=== PATIENT | female | born 1940 | race Caucasian/White ===

== ENCOUNTER → 2023-08-08 09:44 | Outpatient (REF) | payer MEDICARE, SELFPAY ==
[2023-08-08 10:24] LABS: Hematocrit 34.1 % (37.0-47.0); Hemoglobin 11.4 g/dL (12.0-16.0)
[2023-08-08 10:51] LABS: Albumin 3.7 g/dl (3.5-5.0); Blood Urea Nitrogen 75 mg/dl (7-17); Calcium 8.9 mg/dl (8.4-10.2); Carbon Dioxide 21 mmol/L (22-30); Chloride 98 mmol/L (98-107); Glucose 173 mg/dl (70-99); Potassium 4.1 mmol/L (3.5-5.1); Sodium 135 mmol/L (135-145); eGFR 12.09
[2023-08-08 10:58] LABS: ALT (SGPT) < 10 U/L (0-35); AST (SGOT) 31 U/L (14-36); Albumin 3.9 g/dl (3.5-5.0); Alkaline Phosphatase 59 U/L (38-126); Blood Urea Nitrogen 67 mg/dl (7-17); Calcium 8.6 mg/dl (8.4-10.2); Carbon Dioxide 22 mmol/L (22-30); Chloride 101 mmol/L (98-107); Glucose 166 mg/dl (70-99); HDL Cholesterol 51 mg/dl; LDL Cholesterol, Calculated 50 mg/dl; Potassium 4.2 mmol/L (3.5-5.1); Sodium 134 mmol/L (135-145); Total Bilirubin 0.5 mg/dl (0.2-1.3); Total Cholesterol 131 mg/dl (50-199); Total Protein 6.2 g/dl (6.3-8.2); Triglyceride 152 mg/dl (10-149); Very Low Density Lipoprotein 30 mg/dl (0-30)
[2023-08-08 11:21] LABS: TSH 4.96 uIU/ml (0.47-4.68)
[2023-08-08 12:29] LABS: Glycohemoglobin (HgbA1c) 7.3 % (4.0-5.6)
[2023-08-09 11:07] LABS: Intact PTH 253.8 pg/ml (13.6-85.8)
== END ==
LOC: REG 09:44
PROVIDERS: ATTENDING PHYSICIAN Specialist; FAMILY PHYSICIAN Internal Medicine Geriatric Medicine; REFERRING PHYSICIAN Internal Medicine Endocrinology, Diabetes & Metabolism
DX: E11.22 Type 2 diabetes mellitus with diabetic chronic kidney disease (principal); N18.4 Chronic kidney disease, stage 4 (severe); Z79.4 Long term (current) use of insulin; E78.5 Hyperlipidemia, unspecified; N28.9 Disorder of kidney and ureter, unspecified; Q61.3 Polycystic kidney, unspecified
CPT/HCPCS: 36415; 80053; 80061; 80069; 83036; 83970; 84443; 85014; 85018

== ENCOUNTER → 2023-08-20 14:02 | Outpatient (REF) | payer OTHER, SELFPAY | LOC: DHCBS HW 14:02 | PROVIDERS: ATTENDING PHYSICIAN Internal Medicine Cardiovascular Disease; FAMILY PHYSICIAN Internal Medicine Geriatric Medicine | DX: I35.1 Nonrheumatic aortic (valve) insufficiency (principal); I35.0 Nonrheumatic aortic (valve) stenosis | CPT/HCPCS: 93306 ==

== ENCOUNTER → 2023-08-29 10:01 | Outpatient (REF) | payer OTHER, SELFPAY ==
[2023-08-29 11:25] LABS: Blood Urea Nitrogen 65 mg/dl (7-17); Calcium 8.9 mg/dl (8.4-10.2); Carbon Dioxide 22 mmol/L (22-30); Chloride 102 mmol/L (98-107); Glucose 232 mg/dl (70-99); Phosphorus 5.2 mg/dl (2.5-4.5); Potassium 4.4 mmol/L (3.5-5.1); Sodium 133 mmol/L (135-145); eGFR 12.51
[2023-08-29 11:28] LABS: NT-proBNP 18700 pg/ml
== END ==
LOC: REG 10:01
PROVIDERS: ATTENDING PHYSICIAN Specialist; FAMILY PHYSICIAN Internal Medicine Geriatric Medicine
DX: Q61.3 Polycystic kidney, unspecified (principal); N18.4 Chronic kidney disease, stage 4 (severe)
CPT/HCPCS: 36415; 80069; 83880

== ENCOUNTER → 2023-09-25 12:18 | Outpatient (REF) | payer OTHER, SELFPAY ==
[2023-09-25 13:01] LABS: Hematocrit 34.9 % (37.0-47.0); Hemoglobin 11.6 g/dL (12.0-16.0)
[2023-09-25 13:45] LABS: ALT (SGPT) < 10 U/L (0-35); AST (SGOT) 29 U/L (14-36); Albumin 4.1 g/dl (3.5-5.0); Alkaline Phosphatase 47 U/L (38-126); Blood Urea Nitrogen 51 mg/dl (7-17); Calcium 8.7 mg/dl (8.4-10.2); Carbon Dioxide 23 mmol/L (22-30); Chloride 102 mmol/L (98-107); Glucose 144 mg/dl (70-99); Phosphorus 4.5 mg/dl (2.5-4.5); Potassium 4.7 mmol/L (3.5-5.1); Sodium 134 mmol/L (135-145); Total Bilirubin 0.6 mg/dl (0.2-1.3); Total Protein 6.5 g/dl (6.3-8.2); eGFR 12.95
[2023-09-27 09:50] LABS: Intact PTH 199.4 pg/ml (13.6-85.8)
== END ==
LOC: REG 12:18
PROVIDERS: ATTENDING PHYSICIAN Specialist; FAMILY PHYSICIAN Internal Medicine Geriatric Medicine
DX: N18.5 Chronic kidney disease, stage 5 (principal)
CPT/HCPCS: 36415; 80053; 83970; 84100; 85014; 85018

== ENCOUNTER → 2023-10-10 13:00 | Outpatient (REF) | payer OTHER, SELFPAY | LOC: RAD 13:00 | PROVIDERS: ATTENDING PHYSICIAN Surgery Vascular Surgery | DX: Z01.818 Encounter for other preprocedural examination (principal) | CPT/HCPCS: 93985 ==

== ENCOUNTER 2023-10-23 09:03 | Day surgery (SDC) | payer OTHER, SELFPAY ==
[2023-10-23] VITALS (15 sets, daily range): BP systolic 107–170; BP diastolic 48–77; BMI 18.4
[2023-10-23] MEDS: PERIDEX 0.12% ORAL RINSE 15 ML PO (09:46)
[2023-10-23] MEDS: BACTROBAN NASAL 1 GRAM NASAL (09:48)
[2023-10-23 10:08] LABS: Glucose - Point of Care 177 mg/dl (70-99)
[2023-10-23] MEDS: VANCOCIN 200 IV (10:26)
[2023-10-23] MEDS: NSS 500 IV (10:27)
[2023-10-23 10:28] LABS: Hematocrit 34.5 % (37.0-47.0); Hemoglobin 11.7 g/dL (12.0-16.0); Mean Corp Hgb Conc. 33.9 g/dL (33.0-37.0); Mean Corpuscular Volume 94.3 fL (81.0-99.0); Platelet Count 217 10^3/uL (130-400); Red Blood Cell Count 3.66 10^6/uL (4.20-5.40); Red Cell Dist. Width 13.1 % (11.5-14.5); White Blood Cell Count 7.1 10^3/uL (4.8-10.8)
[2023-10-23 10:39] LABS: INR 1.15; PT 14.7 Sec (11.4-14.6)
[2023-10-23 10:40] LABS: APTT 27.3 Sec (23.4-35.0)
--- NOTE | 2023-10-23 10:40 | W.SUR.PREOP ---
Pre-Operative Surgical Note
-
I have examined this patient prior to the performance of the scheduled procedure.
The patient's condition is unchanged from the time of the current History and
Physical and the patient is able to undergo the scheduled procedure.
[2023-10-23 10:42] LABS: Blood Urea Nitrogen 71 mg/dl (7-17); Calcium 8.9 mg/dl (8.4-10.2); Carbon Dioxide 22 mmol/L (22-30); Chloride 110 mmol/L (98-107); Estimated Creatinine Clearance 9 ml/min; Glucose 165 mg/dl (70-99); Potassium 4.5 mmol/L (3.5-5.1); Sodium 140 mmol/L (135-145); eGFR 12.51
--- NOTE | 2023-10-23 12:01 | W.SUR.POST ---
Surgical Immediate Post Op
Note
Pre Op Diagnosis: Renal failure
Post Op Diagnosis: same
Procedure Performed: LUE brachiobasilic AV fistula creation
Primary Surgeon: Mckay
Assist: Mikel MARIE
Anesthesia: LMA
Estimated Blood Loss: 10cc
Fluids: see anesthesia flow sheet
Drains/Shunts: none
Specimens/Cultures: none
Doppler/Duplex/Angio (Y/N): Y
Complications: none
Operative Findings: +thrill
[2023-10-23 13:29] LABS: Glucose - Point of Care 172 mg/dl (70-99)
[2023-10-23] MEDS: DILAUDID 0.25 MG IV (13:37)
[2023-10-23] MEDS: TYLENOL 650 MG PO (14:43)
--- NOTE | 2023-10-23 15:22 | PTCARENOTE ---
Patient denied oxycodone for moderate pain. She stated that she did not want to feel loopy for her car ride home. Instead she was given 650mg of Tylenol for pain. HALL CLERK Daly Morin made aware.
--- NOTE | 2023-10-23 16:51 | OR.RPT ---
Operative Report
Operative Report
PROCEDURE DATE: 10/23/2023
Preoperative diagnosis: End-stage renal disease approaching hemodialysis.
Postoperative diagnosis: Same
Procedure: Left upper extremity brachiobasilic arteriovenous fistula creation with single stage basilic vein transposition.
Surgeon: Mckay
Naval Architect Specialist: FAVIO Morin required for all aspects of procedure including assistance with traction/countertraction, assistance with following suture line, assistance with closure.
Complications: None
Anesthesia: General
Indications for procedure:
Worsening chronic kidney disease with likely imminent dialysis. Therefore referred for fistula creation. Risk/benefits/alternatives were also discussed. Patient understood all wish to proceed.
Description of procedure:
Patient was identified brought to the operating room placed on the table in supine position. After the adequate administration of anesthesia and perioperative antibiotics she was prepped and draped in the standard surgical fashion. A standard
preoperative timeout was undertaken and everybody was in agreement the plan. A longitudinal incision was made in the medial distal upper arm that was carried through the skin subcutaneous tissue with electrocautery. The basilic vein was identified
and carefully dissected away from surrounding structures and great care to avoid any injury to structures. She had a thin habitus and initially I identified the deep vein, but it was clearly a deep vein. Therefore I then used an ultrasound probe
to confirm where the basilic vein was. I was then able to carefully dissected away from surrounding structures. It appeared to be a very suitable vein. I therefore then continued my incisions extending proximally up towards the axilla and
distally just to the level of the antecubital fossa. The basilic vein was carefully dissected away from surrounding structures take great care to avoid any injury to structures, namely the median antebrachial cutaneous nerve which was carefully
preserved from harm's way. Any branches of the basilic vein were ligated between silk ties and then divided. As such I was able to mobilize the entirety of the basilic vein out of its bed. Once I fully mobilized sufficient length of vein I then
ligated the vein distally with a silk tie and a clip and then transected it. I then untethered it from the nerve. I distended under heparinized saline. It distended very well. I marked the anterior surface under distention to avoid any kinking
or twisting when I tunneled it.
Next I deepened my dissection in the distal aspect of my incision through the fascial layer, thereby identifying the brachial artery and carefully dissected away from surrounding structures and great care to avoid any injury to structures. I passed
Vesseloops around it proximally and distally. Next I made a small counterincision overlying the biceps and used an aortic clamp to tunnel the mobilized basilic vein to the arterial exposure site (tunneled in somewhat of a a rainbow fashion
overlying the biceps). The tunneling was performed with the vein under distention to avoid any kinking or twisting.
Next I gave the patient 3000 units of intravenous heparin. I then tightened my Vesseloops (double looped) proximally and distally on the brachial artery. Next I made an arteriotomy with 11 blade and extended using a Mckeon scissor. I then
spatulated the vein and sewed an end-to-side anastomosis using a running 6-0 Prolene suture. I then completed and tied down my suture line. Next I released my inflow Vesseloops on the artery and the bulldog clamp on the vein. There was an
excellent thrill in the fistula. I released my outflow vessel loop. There was a single small suture line bleeder that was repaired with a single 6-0 Prolene [id number] type suture. Hemostasis was now achieved along the suture line. I
confirmed good distal flow with an easily palpable radial pulse at the wrist. At this point I was very satisfied. I therefore irrigated all my incision sites. Hemostasis was fully achieved and confirmed. We then closed the vein mobilization bed
using interrupted 2-0 Vicryl running suture. Deep dermal interrupted 3-0 Vicryl suture was then used. Finally 4-0 Monocryl subcuticular stitch was run. The small counterincision was closed with 4-0 Monocryl subcuticular stitch as well. Dermabond
was applied to the incision sites. Patient tolerated the procedure well.
== END 2023-10-23 15:30 | disposition home or self-care (01) ==
LOC: CATH 09:03
PROVIDERS: ATTENDING PHYSICIAN Surgery Vascular Surgery; FAMILY PHYSICIAN Internal Medicine Geriatric Medicine; OTHER PHYSICIAN Internal Medicine Cardiovascular Disease
DX: E11.22 Type 2 diabetes mellitus with diabetic chronic kidney disease (principal); N18.6 End stage renal disease; Z79.4 Long term (current) use of insulin; Z85.01 Personal history of malignant neoplasm of esophagus; R55 Syncope and collapse
CPT/HCPCS: 36819; 36821; 80048; 82962; 85027; 85610; 85730; 86850; 86900; 86901

== ENCOUNTER 2023-12-08 12:41 | Inpatient (IN) | payer OTHER, SELFPAY ==
[2023-12-06] VITALS (8 sets, daily range): BP systolic 140–167; BP diastolic 64–126; BMI 18.9
[2023-12-06 16:42] LABS: % Basophils 0.5 % (0-2); % Immature Granulocytes 0.3 % (0-0.5); % Monocytes 7.6 % (1.7-9.3); % Neutrophils 63.6 % (42.2-75.2); Absolute Eosinophils 0.4 10^3/uL (0-0.7); Absolute Lymphocytes 1.4 10^3/uL (1.2-3.4); Absolute Monocytes 0.5 10^3/uL (0.1-0.6); Hematocrit 32.2 % (37.0-47.0); Hemoglobin 10.8 g/dL (12.0-16.0); Mean Corp Hgb Conc. 33.5 g/dL (33.0-37.0); Mean Corpuscular Hgb 31.5 pg (27.0-31.0); Mean Corpuscular Volume 93.9 fL (81.0-99.0); Mean Platelet Volume 9.8 fL (7.4-10.4); Nucleated Red Blood Cells % 0 %; Platelet Count 240 10^3/uL (130-400); Red Blood Cell Count 3.43 10^6/uL (4.20-5.40); Red Cell Dist. Width 13.1 % (11.5-14.5); White Blood Cell Count 6.3 10^3/uL (4.8-10.8)
[2023-12-06 16:52] LABS: ALT (SGPT) < 10 U/L (0-35); AST (SGOT) 39 U/L (14-36); Albumin 3.7 g/dl (3.5-5.0); Alkaline Phosphatase 33 U/L (38-126); Blood Urea Nitrogen 60 mg/dl (7-17); Calcium 9.3 mg/dl (8.4-10.2); Carbon Dioxide 25 mmol/L (22-30); Chloride 107 mmol/L (98-107); Glucose 110 mg/dl (70-99); Potassium 4.7 mmol/L (3.5-5.1); Sodium 139 mmol/L (135-145); Total Bilirubin 0.5 mg/dl (0.2-1.3); eGFR 12.95
[2023-12-06 17:04] LABS: Troponin I 0.028 ng/ml
--- NOTE | 2023-12-06 17:49 | ED.GENMED ---
History of Present Illness
<Gloria Estrada PA-C - Last Filed: 12/06/23 20:53>
General
Chief Complaint: Fainting Sensation
Source: patient
Exam Limitations: none
Time Seen by Provider: 12/06/23 16:46
Nursing documentation reviewed up to this point in time: agreed with
Travel History
Have you had any contact with someone who has COVID-19?: No
Do you have any symptoms of coronavirus? Fever > 100 degrees, chills, cough, shortness of breath, sore throat, loss of taste or smell, muscle aches, or headache?: No
History of Present Illness
History of Present Illness:
Patient is an 83-year-old female with past medical history of hyperlipidemia, CAD with STEMI resulting in 2 cardiac stents being placed in July 2023, previous CVA, GERD, who presents to the emergency department via EMS for evaluation following an
unresponsive episode. Patient reports that she lives in the independent living portion of [facility]. Patient reports that her is currently in the us[facility] portion of [facility]. She reports that she was sitting and visiting
with him along with some other family members when she reportedly became unresponsive. Patient denies any preceding symptoms such as lightheadedness, dizziness, chest pain, palpitations, shortness of breath. Patient denies that she has been sick
for the past few days. Patient reports that the next thing she remembered, she woke up and was being loaded into an ambulance. Patient reports that she currently feels cold, tired, and hungry. She reports that she felt a little nauseated earlier
but that has since resolved. Patient denies chest pain, shortness of breath, abdominal pain, vomiting. Patient believes that she may have had similar episodes in the past but none recently. She does not know if they ever found a reason for why it
occurred.
Past History
<Gloria Estrada PA-C - Last Filed: 12/06/23 20:53>
Past History
ED Past Medical History: CAD and Other (Syncope)
ED Past Surgical History: Other (esophagectomy)
Social History
Tobacco: Non-smoker
Personal:
Living: with family
Employment: Retired
Review of Systems
<Gloria Estrada PA-C - Last Filed: 12/06/23 20:53>
Review of Systems
All Other Systems: ROS reviewed and negative except as documented in HPI and ROS
Constitutional: Reports no symptoms
EENT: Reports no symptoms
Respiratory: Reports no symptoms
Cardiac: Reports no symptoms
ABD/GI: Reports nausea (resolved); Denies abdominal pain, vomiting, diarrhea or constipated
: Reports no symptoms
Musculoskeletal: Reports no symptoms
Skin: Reports no symptoms
Neurological: Reports no symptoms
Endocrine: Reports no symptoms
Hematologic/Lymphatic: Reports no symptoms
Psychiatric: Reports no symptoms
Phy Exam
<Gloria Estrada PA-C - Last Filed: 12/06/23 20:53>
General Physical Exam
General Presentation: well appearing and no apparent distress
General Skin: warm and dry
General Habitus: normal
General Mental: alert
General Hydration: appears well hydrated
ENT Exam
ENT Exam: EOMI, pharynx normal, neck supple and normocephalic
Eye Exam
Eye Exam: PERRL, EOMI, cornea clear and conjunctiva normal
Cardiovascular Exam
Cardiovascular Exam: regular rate/rhythm, no edema, no murmur and normal peripheral pulses
Pulmonary Exam
Pulmonary Exam: lungs clear, no respiratory distress, no rales, no crackles, no rhonchi, no stridor, no wheezing and no cough
Gastrointestinal Exam
Gastrointestinal Exam: normal bowel sounds, non tender, soft, no organomegaly, no pulsatile mass and non distended
Neurological Exam
Neurological Exam: alert, oriented x3, no motor deficits and speech normal
Musculoskeletal Exam
Musculoskeletal Exam: full ROM and no edema
Skin Exam
Skin Exam: normal color, warm/dry, no rash and no petechia
Psychiatric Exam
Psychiatric Exam: normal mood/affect
Course
<Gloria Estrada PA-C - Last Filed: 12/06/23 20:53>
Orders/Labs/Results
Orders:
Orders
12/06/23 16:20
EKG [Electrocardiogram (*1)] Urgent
Reason for Study: Chest Pain
EKG- Treatment ONCE
12/06/23 16:29
Comprehensive Metabolic Panel Urgent
12/06/23 16:30
Complete Blood Count/With Diff Urgent
Troponin I Urgent
12/06/23 17:59
Urinalysis Reflex To Culture Urgent
Date Specimen was Collected: 12/06/23
Time Specimen was Collected: 17:39
Urine Microscopic Reflex Cult Urgent
Urine Culture Urgent
GREGG Source: U
Specimen Description:
Date Specimen was Collected: 12/06/23
Time Specimen was Collected: 17:39
12/06/23 20:59
Admit/Transfer Patient As Directed
Co-Sign Provider:
Level of Care: Observation services
Assign to:: Telemetry
Physician / Group: Fish
Diagnosis: Syncope
Reason for Telemetry: Syncope
Date to Stop Telemetry: 12/08/23
Time to Stop Telemetry: 11:00
12/06/23 21:03
Code Status As Directed
Resuscitation Status: Do not resuscitate
Reached after discussion with pt or family/Healthcare POA: Yes
12/06/23 21:04
DNR Bracelet Application ONCE
12/06/23 21:48
0.9% Sodium Chloride 1000 ml [Nss] 1,000 ml IV 80 mls/hr
Acetaminophen [Tylenol] 650 mg PO Q4HPRN PRN
Dextrose 50%-Water [Dextrose 50% Syringe] 12.5 grams IV [id number] PRN
Glucagon [GlucaGen] 1 mg IM PRN PRN
12/06/23 21:48
Activity As Directed
Activity Level: Ambulate
With Assistance
Bedside Glucose Monitoring As Directed
Frequency: AC&HS
Additional Instructions:: Change to q6h if pt on TPN, tube feeding or not eating
Bladder Scan As Directed
Follow Bladder Retention/Intermittent Cath Algorithm?: Yes
PRN if no void in __ hours: 6
Frequency: Per Retention Algorithm
If Bladder Scan Result >: 400
then:: Straight cath
EKG with chest pain [ECG as needed] As Directed
ECG as needed for:: Chest Pain
I/O [Intake/ Output] As Directed
Frequency: Per unit guidelines
Neurological Checks As Directed
Frequency: q4h
Orthostatic Vital Signs As Directed
Orthostatic VS Frequency: BID
Pneumatic Compression Sleeves As Directed
Type: Knee high
Straight Cath As Directed
Frequency: Per Retention Algorithm
Additional Instructions: straight cath as needed per acute urinary retention algorithm for 24 hrs
Additional Instructions: for bladder scan greater than 400 mL
Vital Signs As Directed
Frequency: Per unit guidelines
Weight As Directed
Frequency: Daily
Oxygen Therapy [O2 Therapy] [RESP] Routine
Titrate/Wean O2 to maintain O2 sat greater than (%): 94
Ot Eval And Treat Routine
PT Consult [Pt Eval And Treat] Routine
Activity Level: Ambulate
With Assistance
DX Deep Vein Thrombosis Video Routine
12/06/23 22:00
Carbidopa/Levodopa [Sinemet 25-100] 1 tablet PO HS
12/06/23 22:56
Troponin I Q6H
12/07/23 03:48
Troponin I Q6H
12/07/23 06:00
EKG [Electrocardiogram (*1)] IN AM
Reason for Study: Chest Pain
2000 calorie (17 carb) Diabetic
At Your Request: Full Participation
Basic Metabolic Panel IN AM
Complete Blood Count/No Diff IN AM
Glycohemoglobin (HgbA1c) IN AM
12/07/23 07:30
Insulin Aspart Corrective Low [Novolog Flexpen-Low Resistance] See Protocol SC AC
12/07/23 08:00
Aspirin Low Dose EC [Aspir Low (Enteric Coated)] 81 mg PO DAILY
Carvedilol [Coreg] 3.125 mg PO BID
Ezetimibe [Zetia] 10 mg PO DAILY
Mirabegron Extended Release [Myrbetriq Extended Release] 25 mg PO DAILY
Sertraline HCl [Zoloft] 50 mg PO DAILY
Ticagrelor [Brilinta] 90 mg PO BID
12/07/23 09:48
Troponin I Q6H
12/08/23 11:00
DC Protocol for Telemetry ONCE
Abnormal Lab Results
12/06/23 12/06/23 12/06/23
16:29 16:30 17:59
RBC 3.43 L 10^6/uL
(4.20-5.40)
Hgb 10.8 L g/dL
(12.0-16.0)
Hct 32.2 L %
(37.0-47.0)
MCH 31.5 H pg
(27.0-31.0)
BUN 60 H mg/dl
(7-17)
Creatinine 3.4 H mg/dL
(0.6-1.0)
Glucose 110 H mg/dl
(70-99)
AST 39 H U/L
(14-36)
Alkaline Phosphatase 33 L U/L
(38-126)
Total Protein 6.0 L g/dl
(6.3-8.2)
Leukocyte Esterase Rfl 1+ A
(Negative)
12/06/23 16:30
12/06/23 16:29
Vital Signs
Initial and Last Documented VS:
Initial Vital Signs
Temp Pulse Resp BP Pulse Ox
98 F 75 18 150/64 99
12/06/23 16:22 12/06/23 16:22 12/06/23 16:22 12/06/23 16:22 12/06/23 16:22
Last Documented Vital Signs
Temp Pulse Resp BP Pulse Ox
98.7 F 89 18 167/84 97
12/06/23 21:56 12/06/23 21:56 12/06/23 21:56 12/06/23 21:56 12/06/23 21:56
<Belkis Jennings, DO - Last Filed: 12/07/23 01:42>
Orders/Labs/Results
Orders:
Orders
12/06/23 16:20
EKG [Electrocardiogram (*1)] Urgent
Reason for Study: Chest Pain
EKG- Treatment ONCE
12/06/23 16:29
Comprehensive Metabolic Panel Urgent
12/06/23 16:30
Complete Blood Count/With Diff Urgent
Troponin I Urgent
12/06/23 17:59
Urinalysis Reflex To Culture Urgent
Date Specimen was Collected: 12/06/23
Time Specimen was Collected: 17:39
Urine Microscopic Reflex Cult Urgent
Urine Culture Urgent
GREGG Source: U
Specimen Description:
Date Specimen was Collected: 12/06/23
Time Specimen was Collected: 17:39
12/06/23 20:59
Admit/Transfer Patient As Directed
Co-Sign Provider:
Level of Care: Observation services
Assign to:: Telemetry
Physician / Group: Fish
Diagnosis: Syncope
Reason for Telemetry: Syncope
Date to Stop Telemetry: 12/08/23
Time to Stop Telemetry: 11:00
12/06/23 21:03
Code Status As Directed
Resuscitation Status: Do not resuscitate
Reached after discussion with pt or family/Healthcare POA: Yes
12/06/23 21:04
DNR Bracelet Application ONCE
12/06/23 21:48
0.9% Sodium Chloride 1000 ml [Nss] 1,000 ml IV 80 mls/hr
Acetaminophen [Tylenol] 650 mg PO Q4HPRN PRN
Dextrose 50%-Water [Dextrose 50% Syringe] 12.5 grams IV [id number] PRN
Glucagon [GlucaGen] 1 mg IM PRN PRN
12/06/23 21:48
Activity As Directed
Activity Level: Ambulate
With Assistance
Bedside Glucose Monitoring As Directed
Frequency: AC&HS
Additional Instructions:: Change to q6h if pt on TPN, tube feeding or not eating
Bladder Scan As Directed
Follow Bladder Retention/Intermittent Cath Algorithm?: Yes
PRN if no void in __ hours: 6
Frequency: Per Retention Algorithm
If Bladder Scan Result >: 400
then:: Straight cath
EKG with chest pain [ECG as needed] As Directed
ECG as needed for:: Chest Pain
I/O [Intake/ Output] As Directed
Frequency: Per unit guidelines
Neurological Checks As Directed
Frequency: q4h
Orthostatic Vital Signs As Directed
Orthostatic VS Frequency: BID
Pneumatic Compression Sleeves As Directed
Type: Knee high
Straight Cath As Directed
Frequency: Per Retention Algorithm
Additional Instructions: straight cath as needed per acute urinary retention algorithm for 24 hrs
Additional Instructions: for bladder scan greater than 400 mL
Vital Signs As Directed
Frequency: Per unit guidelines
Weight As Directed
Frequency: Daily
Oxygen Therapy [O2 Therapy] [RESP] Routine
Titrate/Wean O2 to maintain O2 sat greater than (%): 94
Ot Eval And Treat Routine
PT Consult [Pt Eval And Treat] Routine
Activity Level: Ambulate
With Assistance
DX Deep Vein Thrombosis Video Routine
12/06/23 22:00
Carbidopa/Levodopa [Sinemet 25-100] 1 tablet PO HS
12/06/23 22:56
Troponin I Q6H
12/07/23 03:48
Troponin I Q6H
12/07/23 06:00
EKG [Electrocardiogram (*1)] IN AM
Reason for Study: Chest Pain
2000 calorie (17 carb) Diabetic
At Your Request: Full Participation
Basic Metabolic Panel IN AM
Complete Blood Count/No Diff IN AM
Glycohemoglobin (HgbA1c) IN AM
12/07/23 07:30
Insulin Aspart Corrective Low [Novolog Flexpen-Low Resistance] See Protocol SC AC
12/07/23 08:00
Aspirin Low Dose EC [Aspir Low (Enteric Coated)] 81 mg PO DAILY
Carvedilol [Coreg] 3.125 mg PO BID
Ezetimibe [Zetia] 10 mg PO DAILY
Mirabegron Extended Release [Myrbetriq Extended Release] 25 mg PO DAILY
Sertraline HCl [Zoloft] 50 mg PO DAILY
Ticagrelor [Brilinta] 90 mg PO BID
12/07/23 09:48
Troponin I Q6H
12/08/23 11:00
DC Protocol for Telemetry ONCE
Abnormal Lab Results
12/06/23 12/06/23 12/06/23
16:29 16:30 17:59
RBC 3.43 L 10^6/uL
(4.20-5.40)
Hgb 10.8 L g/dL
(12.0-16.0)
Hct 32.2 L %
(37.0-47.0)
MCH 31.5 H pg
(27.0-31.0)
BUN 60 H mg/dl
(7-17)
Creatinine 3.4 H mg/dL
(0.6-1.0)
Glucose 110 H mg/dl
(70-99)
AST 39 H U/L
(14-36)
Alkaline Phosphatase 33 L U/L
(38-126)
Total Protein 6.0 L g/dl
(6.3-8.2)
Leukocyte Esterase Rfl 1+ A
(Negative)
12/06/23 16:30
12/06/23 16:29
Vital Signs
Initial and Last Documented VS:
Initial Vital Signs
Temp Pulse Resp BP Pulse Ox
98 F 75 18 150/64 99
12/06/23 16:22 12/06/23 16:22 12/06/23 16:22 12/06/23 16:22 12/06/23 16:22
Last Documented Vital Signs
Temp Pulse Resp BP Pulse Ox
98.7 F 89 18 167/84 97
12/06/23 21:56 12/06/23 21:56 12/06/23 21:56 12/06/23 21:56 12/06/23 21:56
<Gloria Estrada PA-C - Last Filed: 12/06/23 20:53>
MDM/Problems Addressed
Differential Diagnosis Includes:
Anemia, electrolyte abnormality, dysrhythmia, ACS, CVA, vasovagal syncope
<Gloria Estrada PA-C - Last Filed: 12/06/23 20:53>
*Critical Care Note
Total Time (30-74mins, 75-104mins- exclusive of procedures): Not Applicable
<Gloria Estrada PA-C - Last Filed: 12/06/23 20:53>
Update Note
Update Note:
Patient is an 83-year-old female with past medical history of STEMI 5 months ago, 2 cardiac stents, previous CVA, who presents to the emergency department after an unresponsive episode. Patient reports she initially felt nauseated but denies any
nausea currently. On arrival, patient is mildly hypertensive, afebrile. On exam, patient is well-appearing, she is in no acute distress, she has a normal cardiopulmonary exam, she has a benign abdomen, she is neurologically intact. EKG was
obtained and does demonstrate T wave inversions in leads V1 through V4. When compared to previous, these were the same leads that the patient had her ST elevation when she had her NC earlier this year. Labs are nonactionable. Case was discussed
with ED attending, given the patient's cardiac history, age, lack of preceding symptoms, concern for cardiac etiology of the patient's symptoms. Will admit for telemetry monitoring, trending of troponin, further evaluation and treatment. Plan was
discussed with the patient who agrees that she would feel best staying in the hospital overnight. Case was signed out to the hospitalist without complication.
ED Attending Note
<Gloria Estrada PA-C - Last Filed: 12/06/23 20:53>
-
Portions of this chart may have been created with voice recognition software.� Occasional wrong word or��sound alike� substitutions may have occurred due to the inherent limitations of voice recognition software.
<Belkis Jennings DO - Last Filed: 12/07/23 01:42>
ED Attending Note
Patient seen and examined by attending physician: Yes
I performed the substantive portion of visit, reviewed & personally made and approve the management plan that is documented in note by myself or NEREYDA.: Yes
ED Attending Note:
83yoF hx CAD, HTN, HLD, DM presenting with syncope without a prodrome. Patient states she was sitting talking to her family when she had a syncopal episode. Patient denies any chest pain, shortness of breath, headache, dizziness, lightheadedness, or
abdominal pain. Patient states she feels hungry. Heart RRR, lungs clear, abdomen soft nondistended nontender. Neurologically intact with no focal deficits. Workup unremarkable. Concern for cardiac origin given extensive cardiac history and syncope
with no prodrome. Admit
Discharge Plan
Departure
Patient Disposition: Admit
Date of Disposition: 12/06/23
Time of Disposition: 19:40
Presentation/result/management discussed w/ accepting MD/DO: Hospitalist
Patient with high blood pressure during this ER visit?: Yes
Condition: Good
Covid-19: Not Applicable
Discharge Problem:
Unresponsive episode
Interventions
Interventions:
*Risk Screen - Suicide Last Done: 12/06/23 16:35
*General Assessment Last Done: 12/06/23 16:35
*Neglect/Abuse Screening Last Done: 12/06/23 16:35
ED- Fall Risk Assessment Last Done: 12/06/23 16:35
*ED COVID-19 Vaccine History Last Done: 12/06/23 16:35
*Nursing Disposition Last Done: 12/06/23 21:51
ED- Cardiac Assessment Last Done: 12/06/23 16:35
ED- Neurological Assessment Last Done: 12/06/23 16:35
Discharge Date and Time
Discharge Date/Time: 12/06/23 21:30
[2023-12-06 18:14] LABS: Urine Albumin Trace (Neg - Trace); Urine Bilirubin Negative (Negative); Urine Character Clear (Clear); Urine Color Yellow; Urine Glucose Negative (Negative); Urine Ketone Negative (Negative); Urine Leukocyte 1+ (Negative); Urine Nitrite Negative (Negative); Urine Occult Blood Negative (Negative); Urine Urobilinogen Negative (Neg - 1+); Urine pH 6.5 (5.0-9.0)
[2023-12-06 18:35] LABS: Urine Red Blood Cell 0-2 /HPF (0-2)
--- NOTE | 2023-12-06 21:30 | HPS.HSE ---
Family Physician
-
Family Physician: Lamar Lopez
Chief Complaint
-
Syncope
History of Present Illness
Patient is an 83y F with PMH significant for ASCVD, CKD, hypertension and DM-II who presents to ED for evaluation s/p syncopal event. Patient states that she was sitting with family this afternoon and the next thing she recalls she was being
loaded into an ambulance. She had no prodrome whatsoever of lightheadedness, dizziness, chest pain, etc. Patient states that she has been feeling very well of late and denies any recent illness, med changes, etc.
Patient states that she has had syncopal events in the past - without any clear unifying diagnosis.
In the ED, she is resting comfortably. Her only complaint at present is feeling 'foggy'.
Medical History
Past Medical History
Past Medical History: Reports Other
Additional Past Medical History:
ASCVD (CAD, PAD, CVA)
Esophageal Cancer
Transitional Cell Cancer
Parkinson's Disease
DM-II
PCKD
CKD V
GERD / Hines's
Past Surgical History: Reports Other
Additional Past Surgical History:
PTCA with Stents (Most recent 06/2023)
T&A
D&C
Oophorectomy
Tubal Ligation
Hysterectomy
Appendectomy
Esophagectomy
Herniorrhaphy
TURBT
Cataracts
Pessary
Social History
Tobacco: Non-smoker
Alcohol: None
Drug: None
Personal:
Family History
Family History: Other (Father: PCKD, Leukemia)
Allergies / Home Medications
Allergies reflects when Allergies were last updated in [facility].
Home Medications with original date entered in [facility]
Allergy/Medication List:
Allergies
Allergy/AdvReac Type Severity Reaction Status Date / Time
amitriptyline Allergy Unknown Verified 10/20/23 11:52
amitriptyline HCl Allergy Unknown Verified 10/20/23 11:52
[From Triavil 2-10]
atorvastatin Allergy Unknown Verified 10/20/23 11:52
calcitonin [Calcitonin] Allergy Unknown Verified 10/20/23 11:52
cefaclor [From Ceclor] Allergy Unknown Verified 10/20/23 11:52
cephalexin Allergy Unknown Verified 10/20/23 11:52
Cephalosporins Allergy Unknown Verified 10/20/23 11:52
ciprofloxacin Allergy Unknown Verified 10/20/23 11:52
desipramine Allergy Unknown Verified 10/20/23 11:52
desipramine HCl Allergy Unknown Verified 10/20/23 11:52
[From Norpramin]
hydrochlorothiazide Allergy Unknown Verified 10/20/23 11:52
iodine Allergy Unknown Verified 10/20/23 11:52
latex Allergy Rash Verified 10/20/23 11:52
metolazone Allergy Unknown Verified 10/20/23 11:52
metronidazole Allergy Unknown Verified 10/20/23 11:52
nortriptyline Allergy Unknown Verified 10/20/23 11:52
penicillin G Allergy Unknown Verified 10/20/23 11:52
Penicillins Allergy Unknown Verified 10/20/23 11:52
perphenazine Allergy Unknown Verified 10/20/23 11:52
[From Triavil 2-10]
potassium iodide Allergy Unknown Verified 10/20/23 11:52
prochlorperazine Allergy rigid Verified 10/20/23 11:52
[Prochlorperazine]
prochlorperazine edisylate Allergy rigid Verified 10/20/23 11:52
[From Compazine]
prochlorperazine maleate Allergy rigid Verified 10/20/23 11:52
[From Compazine]
Quinolones Allergy Unknown Verified 10/20/23 11:52
sodium iodide Allergy Unknown Verified 10/20/23 11:52
Cjxskdo-LRC-SsW Reductase Allergy restless Verified 10/20/23 11:52
Inhibitor legs and
[Dnelseg-Ori-Rzc Reductase leg cramps
Inhibitor]
Sulfa (Sulfonamide Allergy Unknown Verified 10/20/23 11:52
Antibiotics)
sulfamethoxazole Allergy Unknown Verified 10/20/23 11:52
Tetracyclines Allergy Unknown Verified 10/20/23 11:52
trimethoprim Allergy Unknown Verified 10/20/23 11:52
eye drop preservatives Allergy Swelling Uncoded 10/20/23 11:52
miacalcin nasal spray Allergy Unknown Uncoded 10/20/23 11:52
Home Medications
carbidopa 25 mg-levodopa 100 mg tablet (Sinemet) 1 tab PO HS Parkinson disease #0 tabs 07/15/23
carvedilol 3.125 mg tablet 3.125 mg PO BID CAD #60 tabs 07/15/23
denosumab 60 mg/mL subcutaneous syringe (Prolia) 60 mg SC [id number] Osteoporosis #0 mL 07/15/23
evolocumab 140 mg/mL subcutaneous syringe (Repatha Syringe) 140 mg SC Q2W HLD #0 mL 07/15/23
ezetimibe 10 mg tablet (Zetia) 10 mg PO DAILY HLD #0 tabs 07/15/23
furosemide 20 mg tablet (Lasix) 20 mg PO Q OTHER DAY HF #30 tabs 07/15/23
mirabegron 50 mg tablet,extended release 24 hr (Myrbetriq) 50 mg PO DAILY overactive bladder #0 tabs 07/15/23
sertraline 50 mg tablet 50 mg PO DAILY Depression #0 tabs 07/15/23
insulin lispro 100 unit/mL subcutaneous pen (Humalog KwikPen (U-100) Insulin) 5 unit SC HS 10/20/23
insulin lispro 100 unit/mL subcutaneous pen (Humalog KwikPen (U-100) Insulin) 8 unit SC DAILY 10/20/23
umdemhhi-hezb-bawt 8 mg-folic 400 mcg-K 50 mcg-lutein 300 mcg tablet (Centrum Silver Women) 1 tab PO DAILY 10/20/23
ticagrelor 90 mg tablet (Brilinta) 90 mg PO BID CAD 10/20/23
aspirin 81 mg tablet,delayed release 81 mg PO DAILY 12/06/23
cholecalciferol (vitamin D3) 25 mcg (1,000 unit) tablet (Vitamin D3) 25 mcg PO DAILY 12/06/23
cyanocobalamin (vitamin B-12) 500 mcg tablet 500 mcg PO DAILY 12/06/23
Review of Systems
-
History Source: Patient
A 12 point ROS was completed and negative except as noted: Yes
Constitutional: Denies Fever, Fatigue or Chills
Respiratory: Denies Cough or Trouble Breathing
Cardiac: Reports Syncope; Denies Chest Pain or Palpitations
Abdomen/GI: Denies Abdominal Pain, Nausea, Vomiting or Diarrhea
: Denies Dysuria or Frequency
Neurological: Denies Dizzy or Headache
Psych: Denies Depression or Anxiety
Physical Exam
Vital Signs
Vital Signs
Temp Pulse Resp BP Pulse Ox
98 F 89 17 149/68 95
12/06/23 16:22 12/06/23 21:00 12/06/23 21:00 12/06/23 21:00 12/06/23 20:45
Physical Exam
General: Other (83y F in no acute distress.)
HEENT: Moist mucous membranes and PERRLA
Respiratory: Clear; No Wheezes, Rales or Rhonchi
Cardiac: S1/S2, Regular Rhythm and Murmur (II/ IRMA)
GI: Soft, Non Tender, Non Distended and Normal Bowel Sounds
Musculoskeletal: No Clubbing, No Cyanosis and No Edema
Neuro: AO x 3 and Nonfocal/grossly intact
Laboratory Results
-
12/06/23 16:30
12/06/23 16:29
Laboratory Results
Total Bilirubin 0.5 mg/dl (0.2-1.3) 12/06/23 16:29
AST 39 U/L (14-36) H 12/06/23 16:29
ALT < 10 U/L (0-35) 12/06/23 16:29
Alkaline Phosphatase 33 U/L (38-126) L 12/06/23 16:29
Troponin I 0.028 ng/ml 12/06/23 16:30
Impression/Plan
-
A/P: Patient is an 83y F with PMH significant for DM-II, CKD V and CAD with STEMI in 06/2023 who presents to ED for evaluation after syncopal event this evening.
Syncope
- Observe overnight for further evaluation and treatment.
- Unclear etiology - and patient reports multiple prior episodes in her past.
- Monitor on tele overnight for arrhythmia.
- Follow for any new / recurrent symptoms.
ASCVD
- History of CAD, PAD and CVA with STEMI in 06/2023 requiring PTCA with stent.
- Troponin is in normal range.
- EKG with T wave inversions in anterior leads - unchanged compared to tracing from September 2023.
- Complete 3 sets of troponin.
- Follow for any chest pain, dyspnea or other complaints.
CKD V
- Stable. Renal function is at / near known baseline.
- Patient is s/p recent LUE AVF placement. (10/23/23)
- Follow for changes in renal function.
DM-II
- Stable. Follow glucose and cover with SSI as needed.
- Update A1C.
Anemia of CKD
- Stable. Hgb is at / near known baseline.
- No reports of active blood loss.
- Follow for any changes.
OAB
- Stable. Would decrease Myrbetriq dose to 25mg daily for now.
- Follow for any new complaints.
Parkinsonism
- Stable. Continue current Sinemet dosing without changes.
DVT Prophylaxis: SCDs
Code Status: DNR
[2023-12-06 22:04] LABS: Glucose - Point of Care 190 mg/dl (70-99)
--- NOTE | 2023-12-06 22:18 | PTCARENOTE ---
Patient arrived from ED, was able to walk to bed with RW. Steady gait, participated in admission. Patient is a good historian, denies pain. Remains on RA.
[2023-12-06] MEDS: NSS 1000 IV (22:40)
[2023-12-06] MEDS: SINEMET 25-100 1 TABLET PO (22:41)
[2023-12-06 23:35] LABS: Troponin I 0.016 ng/ml
[2023-12-07] VITALS (7 sets, daily range): BP systolic 149–181; BP diastolic 74–89; PULSE 79–98; BMI 18.8
[2023-12-07 05:50] LABS: Hematocrit 30.9 % (37.0-47.0); Hemoglobin 10.7 g/dL (12.0-16.0); Mean Corp Hgb Conc. 34.6 g/dL (33.0-37.0); Mean Corpuscular Hgb 31.9 pg (27.0-31.0); Mean Corpuscular Volume 92.2 fL (81.0-99.0); Mean Platelet Volume 9.7 fL (7.4-10.4); Platelet Count 215 10^3/uL (130-400); Red Blood Cell Count 3.35 10^6/uL (4.20-5.40)
[2023-12-07 06:13] LABS: Blood Urea Nitrogen 54 mg/dl (7-17); Calcium 9.1 mg/dl (8.4-10.2); Carbon Dioxide 20 mmol/L (22-30); Chloride 107 mmol/L (98-107); Estimated Creatinine Clearance 9 ml/min; Glucose 111 mg/dl (70-99); Potassium 3.6 mmol/L (3.5-5.1); Sodium 137 mmol/L (135-145); eGFR 13.42
[2023-12-07 06:14] LABS: Troponin I 0.052 ng/ml
[2023-12-07 07:11] LABS: Glucose - Point of Care 130 mg/dl (70-99)
[2023-12-07] MEDS: ASPIR LOW (ENTERIC COATED) 81 MG PO (08:16)
[2023-12-07] MEDS: NOVOLOG FLEXPEN-LOW RESISTANCE SC (08:16)
[2023-12-07] MEDS: ZOLOFT 50 MG PO (08:17)
[2023-12-07] MEDS: COREG 3.125 MG PO ×2 (08:17→20:41)
[2023-12-07] MEDS: ZETIA 10 MG PO (08:17)
[2023-12-07] MEDS: MYRBETRIQ EXTENDED RELEASE 25 MG PO (08:18)
[2023-12-07] MEDS: BRILINTA 90 MG PO ×2 (08:18→20:41)
[2023-12-07 10:17] LABS: Glycohemoglobin (HgbA1c) 7.8 % (4.0-5.6)
[2023-12-07 12:02] LABS: Troponin I 0.048 ng/ml
[2023-12-07 12:52] LABS: Glucose - Point of Care 184 mg/dl (70-99)
[2023-12-07] MEDS: NSS 1000 IV (12:58)
[2023-12-07] MEDS: NOVOLOG FLEXPEN-LOW RESISTANCE 1 UNITS SC (13:04)
--- NOTE | 2023-12-07 13:41 | W.PN.HOSP.TC ---
Today's Communication/Plan
-
consult cards
possible d/c later today
Assessment / Plan
Assessment / Plan
pt is an 83 year old female
Syncope--unclear etiology--EKG with inverted T waves and troponins rising although not high--consult cards--orthostatics negative--another etiology could be dehydration from being out in the sun, taking lasix, not eating or drinking well as
going on to hospice tomorrow
ASCVD - History of CAD, PAD and CVA with STEMI in 06/2023 requiring PTCA with stent - EKG with T wave inversions in anterior leads - unchanged compared to tracing from September 2023 - Follow for any chest pain, dyspnea or other complaints.
CKD V - Stable. Renal function is at / near known baseline - Patient is s/p recent LUE AVF placement. (10/23/23) - Follow for changes in renal function.
DM-II - Stable. Follow glucose and cover with SSI as needed - Update A1C.
Anemia of CKD - Stable. Hgb is at / near known baseline - No reports of active blood loss - Follow for any changes.
OAB- Stable. Would decrease Myrbetriq dose to 25mg daily for now- Follow for any new complaints.
Parkinsonism- Stable. Continue current Sinemet dosing without changes--changes in BP could be due to this as well....
DVT Prophylaxis: SCDs
Code Status: DNR
Anticipated Discharge: Within 24 hours
Subjective/Interval History
-
Date of Service: December 07, 2023
pt feeling better--unexplained syncope yesterday--remembers waking up being loaded into the ambulance
Objective Data
-
Labs:
Laboratory Results
12/07/23
05:38
WBC 7.0
Hgb 10.7 L
Hct 30.9 L
Plt Count 215
Sodium 137
Potassium 3.6
Chloride 107
Carbon Dioxide 20 L
BUN 54 H
Creatinine 3.3 H
Glucose 111 H
Calcium 9.1
Vital Signs:
max temp for 24 hours
12/07/23
11:00
Temp 98.2 F
Vital Signs
Temp Pulse Resp BP Pulse Ox
98.2 F 90 14 163/76 94
12/07/23 11:00 12/07/23 11:00 12/07/23 11:00 12/07/23 11:00 12/07/23 11:00
I&O
12/06/23 12/07/23 12/08/23
06:59 06:59 06:59
Intake Total 1919
Balance 1919
Review of Systems
-
All other systems: Reviewed and negative
Physical Exam
-
General: Well Developed, Well Nourished and No Apparent Distress
HEENT: Normocephalic and Atraumatic
Respiratory: Clear to Auscultation; Negative Wheezes or Rhonchi
Cardiac: Regular Rhythm and S1/S2; Negative Murmur
GI: Soft, Nontender, Nondistended and Normal Bowel Sounds
Musculoskeletal: No Clubbing, No Cyanosis and No Edema
Neuro: Awake and Alert
--- NOTE | 2023-12-07 14:49 | CON.CAR ---
Consultation
Consultation Request
Date/Time Consultation Requested: 12/07/23 1:30
Date/Time Consultation Performed: 12/07/23 2:30
Requesting Provider: Dr Childress
Performing Provider: Dr Henderson
Reason for Consultation: syncope
Medical History
-
Chief Complaint: syncope
History of Present Illness:
This is a complex 83-year-old female with past medical history of coronary artery disease, chronic heart failure with reduced ejection fraction, STEMI June 2023, CKD4, history of stroke, Parkinson's disease, history of syncope, aortic stenosis,
peripheral vascular disease, and hyperlipidemia. She states she was in her usual state of health when yesterday while sitting at a table she suddenly passed out. She denies any previous chest pain, shortness of breath, dizziness, or
lightheadedness. She does have a history of neurocardiogenic syncope. She has not had an episode in a while. She had no palpitations in the setting of this. She woke up and was on the floor. Over the past few weeks she has felt well. With no
exertional chest pains or shortness of breath. She has no strokelike symptoms. She has been stressed recently as her is being placed on hospice. She has been compliant with her medication. She did have dialysis access LUE fistula placed
by vascular surgery in October.
Past Medical History
Past Medical History: Other (Coronary disease status post OH/LAD stent June 2023, chronic heart failure with reduced ejection fraction, moderate to severe aortic stenosis, hyperlipidemia, CKD 4, history of stroke, not on symptom of diabetes,
Parkinson's disease, peripheral vascular disease, history of neurocardiogenic synco)
Past Surgical History: Gynecological (D and C) and Other (esophagectomy with gastric pull 1998)
Social History
Tobacco: Non-Smoker
Alcohol: None
Drug: None
Employment: Retired
Family History
Family History: Hypertension
Allergies / Home Medications
Allergy/AdvReac Type Severity Reaction Status Date / Time
amitriptyline Allergy Unknown Verified 10/20/23 11:52
amitriptyline HCl Allergy Unknown Verified 10/20/23 11:52
[From Triavil 2-10]
atorvastatin Allergy Unknown Verified 10/20/23 11:52
calcitonin [Calcitonin] Allergy Unknown Verified 10/20/23 11:52
cefaclor [From Ceclor] Allergy Unknown Verified 10/20/23 11:52
cephalexin Allergy Unknown Verified 10/20/23 11:52
Cephalosporins Allergy Unknown Verified 10/20/23 11:52
ciprofloxacin Allergy Unknown Verified 10/20/23 11:52
desipramine Allergy Unknown Verified 10/20/23 11:52
desipramine HCl Allergy Unknown Verified 10/20/23 11:52
[From Norpramin]
hydrochlorothiazide Allergy Unknown Verified 10/20/23 11:52
iodine Allergy Unknown Verified 10/20/23 11:52
latex Allergy Rash Verified 10/20/23 11:52
metolazone Allergy Unknown Verified 10/20/23 11:52
metronidazole Allergy Unknown Verified 10/20/23 11:52
nortriptyline Allergy Unknown Verified 10/20/23 11:52
penicillin G Allergy Unknown Verified 10/20/23 11:52
Penicillins Allergy Unknown Verified 10/20/23 11:52
perphenazine Allergy Unknown Verified 10/20/23 11:52
[From Triavil 2-10]
potassium iodide Allergy Unknown Verified 10/20/23 11:52
prochlorperazine Allergy rigid Verified 10/20/23 11:52
[Prochlorperazine]
prochlorperazine edisylate Allergy rigid Verified 10/20/23 11:52
[From Compazine]
prochlorperazine maleate Allergy rigid Verified 10/20/23 11:52
[From Compazine]
Quinolones Allergy Unknown Verified 10/20/23 11:52
sodium iodide Allergy Unknown Verified 10/20/23 11:52
Snhplbg-ZUP-NpG Reductase Allergy restless Verified 10/20/23 11:52
Inhibitor legs and
[Tsbrljf-Wiw-Fsp Reductase leg cramps
Inhibitor]
Sulfa (Sulfonamide Allergy Unknown Verified 10/20/23 11:52
Antibiotics)
sulfamethoxazole Allergy Unknown Verified 10/20/23 11:52
Tetracyclines Allergy Unknown Verified 10/20/23 11:52
trimethoprim Allergy Unknown Verified 10/20/23 11:52
eye drop preservatives Allergy Swelling Uncoded 10/20/23 11:52
miacalcin nasal spray Allergy Unknown Uncoded 10/20/23 11:52
�Medication �Instructions �Recorded �Confirmed �Type
carbidopa 25 mg-levodopa 100 mg 1 tab PO HS Parkinson disease #0 07/15/23 12/06/23 Rx
tablet (Sinemet) tabs
carvedilol 3.125 mg tablet 3.125 mg PO BID CAD #60 tabs 07/15/23 12/06/23 Rx
denosumab 60 mg/mL subcutaneous 60 mg SC [id number] Osteoporosis #0 07/15/23 12/06/23 Rx
syringe (Prolia) mL
evolocumab 140 mg/mL subcutaneous 140 mg SC Q2W HLD #0 mL 07/15/23 12/06/23 Rx
syringe (Repatha Syringe)
ezetimibe 10 mg tablet (Zetia) 10 mg PO DAILY HLD #0 tabs 07/15/23 12/06/23 Rx
furosemide 20 mg tablet (Lasix) 20 mg PO Q OTHER DAY HF #30 tabs 07/15/23 12/06/23 Rx
mirabegron 50 mg tablet,extended 50 mg PO DAILY overactive bladder 07/15/23 12/06/23 Rx
release 24 hr (Myrbetriq) #0 tabs
sertraline 50 mg tablet 50 mg PO DAILY Depression #0 tabs 07/15/23 12/06/23 Rx
insulin lispro 100 unit/mL 5 unit SC HS 10/20/23 12/06/23 History
subcutaneous pen (Humalog KwikPen
(U-100) Insulin)
insulin lispro 100 unit/mL 8 unit SC DAILY 10/20/23 12/06/23 History
subcutaneous pen (Humalog KwikPen
(U-100) Insulin)
ojjkapha-tkge-vzij 8 mg-folic 400 1 tab PO DAILY 10/20/23 12/06/23 History
mcg-K 50 mcg-lutein 300 mcg tablet
(Centrum Silver Women)
ticagrelor 90 mg tablet (Brilinta) 90 mg PO BID CAD 10/20/23 12/06/23 History
aspirin 81 mg tablet,delayed 81 mg PO DAILY 12/06/23 12/06/23 History
release
cholecalciferol (vitamin D3) 25 25 mcg PO DAILY 12/06/23 12/06/23 History
mcg (1,000 unit) tablet (Vitamin
D3)
cyanocobalamin (vitamin B-12) 500 500 mcg PO DAILY 12/06/23 12/06/23 History
mcg tablet
Review of Systems
-
History Source: Patient
Constitutional: Fatigue
EENT: No Symptoms
Respiratory: No Symptoms
Cardiac: Syncope
Abdomen/GI: No Symptoms
: No Symptoms
Musculoskeletal: No Symptoms
Skin: No Symptoms
Neurological: No Symptoms
Endocrine: No Symptoms
Hematologic/Lymphatic: No Symptoms
Physical Exam
Vital Signs
Temp Pulse Resp BP Pulse Ox
98.2 F 90 14 163/76 94
12/07/23 11:00 12/07/23 11:00 12/07/23 11:00 12/07/23 11:00 12/07/23 11:00
Lab Results
12/07/23 05:38
12/07/23 05:38
Troponin I 0.048 ng/ml H* 12/07/23 11:21
Physical Exam
General: Well Developed and No Apparent Distress
HEENT: Normocephalic and Anicteric
Respiratory: Clear and Non Labored Respirations
Cardiac: S1/S2, Regular Rhythm and Murmur (2/6 syst LSB)
GI: Soft, Non Tender and Non Distended
Musculoskeletal: No Edema
Skin: Warm and Dry
Neuro: Awake and Alert
Psych: Calm
Impression / Plan
-
PCP: Dr. Lamar Lopez
Cardiology: Dr. Trinh Espinoza
Impression:
syncope
Chronic heart failure with reduced ejection
hx anterior STEMI with persistent ST segment elevation, peak Troponin 154 07/05/2023,
100% occlusion within previously placed stent treated with overlapping 2.5 mm and 3.25 mm Xience AIDEN to LAD 07/05/23CA
s/p 3 mm Xience LAD stent at [facility] 2013Moderate aortic stenosis, MPG 29 mmHg and LORNA 1.1 cm sq by echo 07/09/23
CKD 4 s/p L fistula 10/28
Polycystic kidney disease
PAD
Parkinson's disease
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
History of remote cerebellar stroke
Anxiety/depression
Pancreatic cyst
History of esophageal cancer with esophagectomy and gastric pull-up
Degenerative disc disease with lumbosacral neurofibroma
Hypertension
Hypercholesterolemia, statin intolerant on Repatha
Hypokalemia
Orthostasis
History of neurocardiogenic syncope
Echo 05/2022: Small LV, mild septal hypertrophy, EF 60-65%, mild to moderate aortic stenosis, peak/mean gradient 32/17 mmHg, aortic valve area 1.3 cm 2 with moderate aortic regurgitation, mild MR, normal left atrium, normal right heart with normal
pulmonary artery pressure
Echo 07/06/2023: Normal LV size, mid to distal anteroseptal, apical lateral, inferior, anterior, septal severe hypokinesis, EF 40-45%, mild MR, mild to moderate aortic stenosis, peak/mean gradient 31/21 mmHg, valve area 1.2 cm2
Echo 07/09/23: EF 35-40%, hypokinesis mid to distal anterior wall, distal septal wall and apex, no obvious VSD, moderate with mean gradient 29mmHg and LORNA 1.1 cm sq, moderate aortic insufficiency
Echo 08/20/23: EF 35-40%, mid to distal anteroseptal and apical hypokinesis, moderate-severe aortic stenosis with mean gradient of 24 and aortic valve area 0.8. Moderate aortic regurgitation
Plan:
She presents with an episode of syncope of unclear etiology. She does have history of neurocardiogenic syncope and this sounds like a possible
Telemetry with no significant events. Continue to follow on telemetry.
Would hold Lasix for 24 to 48 hours. Creatinine overall stable at 3.3
Will repeat echocardiogram to reevaluate LVEF and aortic valve. Aortic stenosis is previous been graded in the moderate range, however ejection fraction is depressed so this could be worse.
Continue medical therapy for coronary artery disease. Continue aspirin, Coreg, Zetia. She has not tolerated statins in the past
Troponin is abnormal and I suspect this is nonischemic myocardial lab abnormality
Data Reviewed
-
EKG: Report Reviewed by me
Radiology: Report Reviewed by me
Labs: Labs Reviewed by me
Old Records: Reviewed
--- NOTE | 2023-12-07 14:50 | CM ---
Alert awake oriented patient who lives at [facility] with her Bakari (who was placed on Hospice) She is independent in driving and in all activities of daily living.She was offered VN he declined need.Spear letter explained copy given.Signed
SPEAR on chart.Rollator and walker used.
Carlos VN hx / No SNF history
Pharmacy [address]
PCP DR Lopez
PLAN Home Unsure if she will need VN at this time
on Hospice at [facility]
[2023-12-07 17:44] LABS: Glucose - Point of Care 204 mg/dl (70-99)
[2023-12-07] MEDS: NOVOLOG FLEXPEN-LOW RESISTANCE 300 UNITS SC (17:51)
[2023-12-07] MEDS: OCEAN, SALINE MIST 2 SPRAYS NASAL (20:42)
[2023-12-07] MEDS: SINEMET 25-100 1 TABLET PO (21:27)
[2023-12-07 21:32] LABS: Glucose - Point of Care 208 mg/dl (70-99)
[2023-12-08] VITALS (9 sets, daily range): BP systolic 133–168; BP diastolic 57–85; PULSE 79–84; BMI 19.1
[2023-12-08] MEDS: NSS 1000 IV (05:18)
[2023-12-08 07:15] LABS: Glucose - Point of Care 158 mg/dl (70-99)
[2023-12-08] MEDS: COREG 3.125 MG PO (08:13)
[2023-12-08] MEDS: ZETIA 10 MG PO (08:13)
[2023-12-08] MEDS: BRILINTA 90 MG PO (08:13)
[2023-12-08] MEDS: MYRBETRIQ EXTENDED RELEASE 25 MG PO (08:13)
[2023-12-08] MEDS: ASPIR LOW (ENTERIC COATED) 81 MG PO (08:13)
[2023-12-08] MEDS: ZOLOFT 50 MG PO (08:13)
[2023-12-08] MEDS: NOVOLOG FLEXPEN-LOW RESISTANCE 100 UNITS SC (09:30)
--- NOTE | 2023-12-08 09:59 | CON.NEURO4 ---
Addendum entered and electronically signed by Santana Galan MD 12/08/23 12:35:
I saw and evaluate the patient I reviewed the note by Lili York agree with the findings the following comments:
Patient is an 83-year-old woman with a past medical history of multiple episodes of previous syncope diabetes and hypertension presents to hospital due to syncopal event. Patient did not have any warning of any unusual symptoms before she lost
consciousness which seem to occur while she was sitting in the afternoon. She did not have any tongue bite or urinary or bowel incontinence.
Patient relates that she had had an evaluation at [facility] around 5 years ago's with diagnosed apparently with Parkinson's disease has been on nightly Sinemet since this which has helped with the restless leg syndrome. She never had any tremor
or difficulty with moving or rigidity not had any progression in any symptoms whatsoever for the past 5 years.
No history of epilepsy or syncope in the family.
CT head noncontrast which obtained which was showed findings of a right-sided anterior basal ganglia infarction which was age-indeterminate.
Neurologic examination shows unremarkable mental status and normal cranial nerve
Motor examination has no evidence of resting tremor no rigidity or parkinsonism or bradykinesia
Motor strength is normal
Light touch normal symmetric throughout in the limbs
Normal finger-nose testing bilateral
Gait requires walker but no shuffling gait
Assessment:
Patient has no symptoms whatsoever of ischemic stroke that would localize to the right basal ganglia she has no left-sided unilateral paresthesia or motor symptoms in such a finding is very likely to be incidental and completely unrelated to her
loss of consciousness episode. Infarcts in this area do not produce syncope. Syncope is quite rare as a medication of stroke or TIA and generally would be more likely to happen from a stroke in the posterior circulation in the brainstem.
Negative for orthostatic hypotension
Patient has no symptoms of Parkinson's disease and has had no progression whatsoever and motor symptoms for the past 5 years thus I do not feel she has Parkinson's disease at all
Sudden onset loss of consciousness and quick return to normal is unlikely to be epileptic seizure as cause of patient's losing consciousness
Recommendations
-No indication for brain MRI or further workup of the right basal ganglia infarct which is highly likely to be a chronic incidental finding
-Continue on her home DAPT regimen is acceptable
-Okay to continue on Sinemet at home nightly dose which helps with her restless legs syndrome
-Cardiac telemetry
Original Note:
Documented by User: Lili Oquendo NP 12/08/23 11:55
Consultation - Neurology 4
-
CONSULTING PHYSICIAN: Agustin Galan MD
REFERRING PHYSICIAN: Hospitalists/Dr. Palacio
DICTATED BY: CYNTHIA Fonseca
DATE/TIME OF REQUEST: 12/08/23
DATE/TIME OF CONSULTATION: 12/08/23
Reason for Consultation: CT head suggestive of CVA
History of Present Illness:
This is an 83-year-old right-handed female who has presented to the hospital on 12/06/23 with report of syncope. Patient reports about a 6 year history of syncope. She never has any precipitating symptoms to passing out and it can happen when she has
been sitting for a long time or while she is ambulating. Initially she was fainting more often but now it only happens about every two years. She reports being evaluated at [facility] around the time of her first syncopal episode and she was told
she had Parkinsonism. She is unsure if she has every had any Parkinson disease symptoms and denies any worsening of her functioning since that time. She was put on 1 Sinemet tablet at bedtime at that time. The Sinemet has helped improve her restless
legs. She has used a walker for ambulation for about 3 years, she denies any shuffled gait or recent falls.
Two days ago on 12/06/23 she reports feeling in her usual state. In the afternoon she was sitting outside in the sun visiting her with her children when she suddenly lost consciousness. She denies feeling dizzy, diaphoretic, ringing in her
ears, tunnel vision prior to passing out. The next thing she remembers is being placed in an ambulance in her usual state. She reports that paramedics said her blood pressure was 60/40. Orthostatic vital signs have been unremarkable. CT Head was
obtained today and is suggestive of an acute vs subacute right basal ganglia ischemic infarct. Patient denies any recent headache, dizziness, vision changes, speech/swallow difficulty, nausea, one-sided weakness or numbness, chest pain,
palpitations, and shortness of breath. She denies any symptoms of stroke over the past several weeks or in the past. She denies any recent fever or illness but does endorse significant stress related to her being placed on hospice care
today. She is on DAPT with aspirin and Brilinta due to cardiac stenting she had in June 2023. Outpatient medical records have a cerebellar CVA documented in her PMH, patient does not recall a history of this.
Past Medical History: Syncope, cerebellar ischemic stroke?, parkinsonism?, HLD, CKD, NIDDM, PVD, transitional cell carcinoma bladder, aortic valve insufficiency, urinary incontinence, pancreatic cyst, ambulatory dysfunction
Surgical History: LUE AVF 10/2023, LAD stent x2, cardiac stent, appendectomy, esophagectomy with gastric pull-up, hernia repair, bladder tumor resection, b/l cataract removal, wisdom teeth removal, pessary, hysterectomy/oophorectomy, b/l tubal
ligation, d&c
Family History: Reviewed and noncontributory.
Social History: Denies tobacco, alcohol, and illicit drug use.
Allergies: See below.
Home Medications: See below.
Review of Symptoms:
Patient denies any fever, headache, chest pain, shortness of breath, GI or symptoms.
�Per the HPI.�All systems are reviewed negative except above.
Physical Exam:
The patient is afebrile, abdomen is nondistended, breathing is unlabored, skin is warm and dry, no edema
NIH Stroke Scale:
I performed the NIH stroke scale on the patient on 12/08/23 at 1015. The patient scored 0 points on the NIH stroke scale assessment, which were assigned as follows: See below.
Neurologic Examination:
The patient is awake, alert and oriented x 3. She is able to follow commands and answer questions appropriately. There is no aphasia or dysarthria. On cranial nerve assessment, pupils are 3 mm bilateral, round and reactive to light and
accommodation. Visual izquierdo are full. Extraocular movements are intact. Facial sensations are intact and bilaterally symmetrical, there is no facial asymmetry. Hearing is intact bilaterally to normal conversation volume. Tongue palate and uvula are
midline. Sternocleidomastoid strengths are full bilaterally. Motor strengths are 5/5 bilateral upper and lower extremities on medical research [place] scale. There is no drift or involuntary movement noted. Deep tendon reflexes are 1+ bilateral
upper and lower extremities and Babinski is absent bilaterally. Sensations of touch and temperature are intact and bilaterally symmetrical. Vibration is moderately reduced in bilateral toes. There was no extinction noted on double simultaneous
stimulation. Coordination is intact by finger to nose bilaterally. Gait is steady with rolling walker.
Lab Results: See below.
Neuro Imaging:
1. CT head 12/08/23: Small possible acute/subacute infarct in the right basal ganglia/subinsular region. No CT evidence for acute intracranial hemorrhage.
Differentials for the patient's presentation include:
1. Small acute/subacute right basal ganglia ischemic stroke suggested by CT head imaging is an incidental finding, likely occurring in the past several weeks, unrelated to syncopal event.
2. Syncope possibly due to aortic stenosis, dehydration. Orthostatic vital signs are negative.
3. Old cerebellar ischemic stroke?
4. Do not feel that patient has Parkinsonism or Parkinson disease.
5. Sinemet is helping alleviated restless leg symptoms.
Patient has the following risk factors for their symptoms: HLD, aortic stenosis, old CVA?, age
IV Tenecteplase/IAT candidacy: Not a candidate due to NIHSS 0, unclear onset.
Recommendations:
-Continue DAPT with aspirin 81mg daily and Brilinta 90mg BID for at least the next 21 days, then per Cardiology. After completion of DAPT, maintain aspirin 81mg daily indefinitely.
-Goal normotension.
-Check orthostatic vital signs BID.
-Do not see a role for further neurological imaging at this time. Patient can have an MRI brain and MRA head/neck completed as an outpatient workup.
-Patient may continue Sinemet for restless legs syndrome but may discontinue if she'd like as there is no evidence to suggest PD.
-LDL goal <70. LDL is 62, at goal. Continue home Repatha and Zetia 10mg daily.
-Goal normoglycemia, hbA1c is 7.8.
-NIHSS and neurological checks per unit guidelines.
-Provide patient with a stroke education packet.
-PT/OT/ST evaluations.
-DVT prophylaxis.
-No barriers to discharge from Neurology's perspective. Patient should follow-up with Neurology as an outpatient, may see the SHIELD OPERATOR or one of the physicians.
Discussed patient care with: Dr. Galan, the patient
Vital Signs and Labs
-
Vital Signs and Labs:
Vital Signs
Temp Pulse Resp BP Pulse Ox
97.8 F 82 18 133/74 95
12/08/23 07:15 12/08/23 08:13 12/08/23 07:15 12/08/23 08:13 12/08/23 08:12
Lab Results
12/07/23 05:38
12/07/23 05:38
Sodium 137 mmol/L (135-145) 12/07/23 05:38
Potassium 3.6 mmol/L (3.5-5.1) 12/07/23 05:38
BUN 54 mg/dl (7-17) H 12/07/23 05:38
Glucose 111 mg/dl (70-99) H 12/07/23 05:38
Calcium 9.1 mg/dl (8.4-10.2) 12/07/23 05:38
Medications
-
Active Medications
Generic Name Dose Route Start Last Admin
Trade Name Freq PRN Reason Stop Dose Admin
Acetaminophen 650 mg 12/06/23 21:48
Acetaminophen 325 Mg Tablet PO 01/03/24 21:47
Q4HPRN PRN
Mild Pain / Temp > 101
Aspirin 81 mg 12/07/23 08:00 12/08/23 08:13
Aspirin 81 Mg (Enteric Coated) Tablet PO 01/04/24 07:59 81 mg
DAILY REID Administration
Carbidopa/Levodopa 1 tablet 12/06/23 22:00 12/07/23 21:27
Carbidopa (25 Mg)/Levodopa (100 Mg) Regular Release Tablet PO 01/03/24 21:59 1 tablet
HS REID Administration
Carvedilol 3.125 mg 12/07/23 08:00 12/08/23 08:13
Carvedilol 3.125 Mg Tablet PO 01/04/24 07:59 3.125 mg
BID REID Administration
Dextrose 12.5 grams 12/06/23 21:48
Dextrose 50% (0.5 Grams/Ml) 50 Ml Syringe IV 01/03/24 21:47
[id number] PRN
hypoglycemia
Protocol
Ezetimibe 10 mg 12/07/23 08:00 12/08/23 08:13
Ezetimibe (Zetia) 10 Mg Tablet PO 01/04/24 07:59 10 mg
DAILY REID Administration
Glucagon 1 mg 12/06/23 21:48
Glucagon 1 Mg Vial IM 01/03/24 21:47
PRN PRN
hypoglycemia
Protocol
Sodium Chloride 1,000 mls @ 80 mls/hr 12/06/23 21:48 12/08/23 05:18
Nss IV 1,000 mls
[id number] REID Administration
Insulin Aspart 0 units 12/07/23 07:30 12/08/23 09:30
Insulin Aspart Low Resistance 300 Units/3 Ml Pen.Injctr SC 01/04/24 07:29 100 units
AC REID Administration
Protocol
Mirabegron 25 mg 12/07/23 08:00 12/08/23 08:13
Mirabegron Extended Release 25 Mg Tab (Non Form) PO 01/04/24 07:59 25 mg
DAILY REID Administration
Sertraline HCl 50 mg 12/07/23 08:00 12/08/23 08:13
Sertraline 50 Mg Tablet PO 01/04/24 07:59 50 mg
DAILY REID Administration
Sodium Chloride 2 sprays 12/07/23 17:59 12/07/23 20:42
Sodium Chloride 0.65% Nasal [place] 45 Ml Bottle NASAL 01/04/24 17:58 2 sprays
QIDPRN PRN Administration
dryness
Ticagrelor 90 mg 12/07/23 08:00 12/08/23 08:13
Ticagrelor (Brilinta) 90 Mg Tablet PO 01/04/24 07:59 90 mg
BID REID Administration
Home Medications
�Medication �Instructions �Recorded
carbidopa 25 mg-levodopa 100 mg 1 tab PO HS Parkinson disease #0 07/15/23
tablet (Sinemet) tabs
carvedilol 3.125 mg tablet 3.125 mg PO BID CAD #60 tabs 07/15/23
denosumab 60 mg/mL subcutaneous 60 mg SC [id number] Osteoporosis #0 07/15/23
syringe (Prolia) mL
evolocumab 140 mg/mL subcutaneous 140 mg SC Q2W HLD #0 mL 07/15/23
syringe (Repatha Syringe)
ezetimibe 10 mg tablet (Zetia) 10 mg PO DAILY HLD #0 tabs 07/15/23
furosemide 20 mg tablet (Lasix) 20 mg PO Q OTHER DAY HF #30 tabs 07/15/23
mirabegron 50 mg tablet,extended 50 mg PO DAILY overactive bladder 07/15/23
release 24 hr (Myrbetriq) #0 tabs
sertraline 50 mg tablet 50 mg PO DAILY Depression #0 tabs 07/15/23
insulin lispro 100 unit/mL 5 unit SC HS 10/20/23
subcutaneous pen (Humalog KwikPen
(U-100) Insulin)
insulin lispro 100 unit/mL 8 unit SC DAILY 10/20/23
subcutaneous pen (Humalog KwikPen
(U-100) Insulin)
gebhcyrw-baoh-lthj 8 mg-folic 400 1 tab PO DAILY 10/20/23
mcg-K 50 mcg-lutein 300 mcg tablet
(Centrum Silver Women)
ticagrelor 90 mg tablet (Brilinta) 90 mg PO BID CAD 10/20/23
aspirin 81 mg tablet,delayed 81 mg PO DAILY 12/06/23
release
cholecalciferol (vitamin D3) 25 25 mcg PO DAILY 12/06/23
mcg (1,000 unit) tablet (Vitamin
D3)
cyanocobalamin (vitamin B-12) 500 500 mcg PO DAILY 12/06/23
mcg tablet
NIH Stroke Score
Subsequent NIH Scale
Date of Subsequent NIH Scale: 12/08/23
Time of Subsequent NIH Scale: 10:15
NIH Stroke Score
Level of Consciousness: 0 - Alert
LOC Questions: 0-Answers both correctly
LOC Commands: 0-Performs both correctly
Best Horizontal Gaze: 0-Normal
Visual Izquierdo: 0=Normal, no visual loss
Facial Palsy: 0=Normal, symmetrical
Motor - Right Arm: 0=No drift 10 seconds
Motor - Left Arm: 0=No drift 10 seconds
Motor - Right Le-No drift 5 seconds
Motor - Left Le-No drift 5 seconds
Limb Ataxia: 0-Absent
Sensation: 0-Normal
Best Language: 0-No aphasia
Dysarthria: 0-Normal
Extinction and Inattention: 0-No abnormality
Total Score:: 0
Modified Cesario (mRS) Score
Modified Hickman Scale (mRS): No symptoms
Score: 0

Documented by User: Santana Galan MD 12/08/23 12:30
NIH Stroke Score
NIH Stroke Score
Total Score:: 0
Modified Hickman (mRS) Score
Score: 0
[2023-12-08 11:02] LABS: HDL Cholesterol 56 mg/dl; LDL Cholesterol, Calculated 62 mg/dl; Total Cholesterol 154 mg/dl (50-199); Triglyceride 180 mg/dl (10-149); Very Low Density Lipoprotein 36 mg/dl (0-30)
[2023-12-08 11:50] LABS: Glucose - Point of Care 204 mg/dl (70-99)
--- NOTE | 2023-12-08 11:55 | W.PN.HOSP.TC ---
Addendum entered and electronically signed by Earnest Palacio MD 12/08/23 18:17:
echo with no acute findings, mildly reduced ef - 45-50%, stage 1 diastolic dys. mod aortic stenosis. mod aortic regurg. resume home dose lasix. f/u pcp/cardiology/neurology outpatient.
Addendum entered and electronically signed by Earnest Palacio MD 12/08/23 16:42:
[id number]
Original Note:
Today's Communication/Plan
-
resume lasix tomorrow
f/u echo
if no drastic changes, clear for dc
f/u pcp, cards, neurology outpatient
can remain on repatha, zetia, dapt
Assessment / Plan
Assessment / Plan
pt is an 83 year old female
Syncope-possibly cardiogenic. Doubt this is related to CVA. Pending echo. Holding Lasix, can restart tomorrow. Pending cardiology evaluation
ASCVD - History of CAD, PAD and CVA with STEMI in 06/2023 requiring PTCA with stent - EKG with T wave inversions in anterior leads - unchanged compared to tracing from September 2023 - Follow for any chest pain, dyspnea or other complaints.
CKD V - Stable. Renal function is at / near known baseline - Patient is s/p recent LUE AVF placement. (10/23/23) - Follow for changes in renal function.
DM-II - Stable. Follow glucose and cover with SSI as needed - Update A1C. 7.8
Anemia of CKD - Stable. Hgb is at / near known baseline - No reports of active blood loss - Follow for any changes.
OAB- Stable. Would decrease Myrbetriq dose to 25mg daily for now- Follow for any new complaints.
Parkinsonism- Stable. Continue current Sinemet dosing without changes
DVT Prophylaxis: SCDs
Code Status: DNR
More than 30 minutes spent in discharge including
Final examination of the patient
Summarizing hospital stay
Instructions for continuing care to all relevant caregivers
Preparation of discharge records, prescriptions, and referral forms
Total time spent (35 in minutes):
Anticipated Discharge: Today
Subjective/Interval History
-
Date of Service: December 08, 2023
small cva right basal ganglia/subinsular region
Objective Data
-
Vital Signs:
Vital Signs
Temp Pulse Resp BP Pulse Ox
97.8 F 82 18 133/74 95
12/08/23 07:15 12/08/23 08:13 12/08/23 07:15 12/08/23 08:13 12/08/23 08:12
I&O
12/07/23 12/08/23 12/09/23
06:59 06:59 06:59
Intake Total 1920 / 1920 2200 / 2200
Output Total 600 / 600
Balance 1920 / 1920 1600 / 1600
Review of Systems
-
History Source: Patient
All other systems: Not reviewed unless documented
Physical Exam
-
General: Well Developed, Well Nourished and No Apparent Distress
HEENT: Normocephalic and Atraumatic
Respiratory: Clear to Auscultation; Negative Wheezes or Rhonchi
Cardiac: Regular Rhythm and S1/S2; Negative Murmur
GI: Soft, Nontender, Nondistended and Normal Bowel Sounds
Musculoskeletal: No Clubbing, No Cyanosis and No Edema
Neuro: Awake and Alert
--- NOTE | 2023-12-08 12:04 | W.PN.CARDCBS ---
Today's Communication / Plan
-
Etiology of syncope unclear
Could be due to aortic stenosis but does have history of neurocardiogenic syncope
Check echocardiogram
Discussed with neurology
Impression / Plan
-
PCP: Dr. Lamar Lopez
Cardiology: Dr. Trinh Espinoza
Impression:
syncope
Chronic heart failure with reduced ejection
hx anterior STEMI with persistent ST segment elevation, peak Troponin 154 07/05/2023,
100% occlusion within previously placed stent treated with overlapping 2.5 mm and 3.25 mm Xience AIDEN to LAD 07/05/23CAD
s/p 3 mm Xience LAD stent at [facility] 2013Moderate aortic stenosis, MPG 29 mmHg and LORNA 1.1 cm sq by echo 07/09/23
CKD 4 s/p L fistula 10/28
Polycystic kidney disease
PAD
Parkinson's disease
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
History of remote cerebellar stroke
Anxiety/depression
Pancreatic cyst
History of esophageal cancer with esophagectomy and gastric pull-up
Degenerative disc disease with lumbosacral neurofibroma
Hypertension
Hypercholesterolemia, statin intolerant on Repatha
Hypokalemia
Orthostasis
History of neurocardiogenic syncope
nonischemic myocardial lab abnormality
Echo 05/2022: Small LV, mild septal hypertrophy, EF 60-65%, mild to moderate aortic stenosis, peak/mean gradient 32/17 mmHg, aortic valve area 1.3 cm 2 with moderate aortic regurgitation, mild MR, normal left atrium, normal right heart with normal
pulmonary artery pressure
Echo 07/06/2023: Normal LV size, mid to distal anteroseptal, apical lateral, inferior, anterior, septal severe hypokinesis, EF 40-45%, mild MR, mild to moderate aortic stenosis, peak/mean gradient 31/21 mmHg, valve area 1.2 cm2
Echo 07/09/23: EF 35-40%, hypokinesis mid to distal anterior wall, distal septal wall and apex, no obvious VSD, moderate with mean gradient 29mmHg and LORNA 1.1 cm sq, moderate aortic insufficiency
Echo 08/20/23: EF 35-40%, mid to distal anteroseptal and apical hypokinesis, moderate-severe aortic stenosis with mean gradient of 24 and aortic valve area 0.8. Moderate aortic regurgitation
Plan:
Etiology of syncope unclear but could be due to aortic stenosis
Will recheck echocardiogram to reassess ejection fraction and aortic stenosis
May consider outpatient workup for TAVR
She does have a history of neurocardiogenic syncope but does not recall any symptoms at the time of the event
She has CVA but that is felt to be an incidental finding
Discussed with neurology
Continue medical therapy for coronary artery disease. Continue aspirin, Coreg, Zetia. She has not tolerated statins in the past
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
Subjective
Date of Service: December 08, 2023
No complaints
Objective
Labs:
12/07/23 05:38
12/07/23 05:38
Labs
Hgb 10.7 g/dL (12.0-16.0) L 12/07/23 05:38
Hct 30.9 % (37.0-47.0) L 12/07/23 05:38
Plt Count 215 10^3/uL (130-400) 12/07/23 05:38
Sodium 137 mmol/L (135-145) 12/07/23 05:38
Potassium 3.6 mmol/L (3.5-5.1) 12/07/23 05:38
BUN 54 mg/dl (7-17) H 12/07/23 05:38
Creatinine 3.3 mg/dL (0.6-1.0) H 12/07/23 05:38
Glucose 111 mg/dl (70-99) H 12/07/23 05:38
Troponins
12/06/23 12/06/23 12/07/23
16:30 22:56 05:38
Troponin I 0.028 0.016 D 0.052 H* D
12/07/23
11:21
Troponin I 0.048 H*
Vital Signs and I&O:
Vital Signs
Temp Pulse Resp BP Pulse Ox
98.1 F 76 18 160/82 97
12/08/23 11:54 12/08/23 11:54 12/08/23 11:54 12/08/23 11:54 12/08/23 11:54
Vital Signs
Temp Pulse Resp BP Pulse Ox
98.1 F 76 18 160/82 97
12/08/23 11:54 12/08/23 11:54 12/08/23 11:54 12/08/23 11:54 12/08/23 11:54
Intake & Output
12/06/23 12/07/23 12/08/23 12/09/23
06:59 06:59 06:59 06:59
Intake Total 0 / 1920 2200 / 2200
Output Total 600 / 600
Balance 0 / 1920 1600 / 1600
Physical Exam
Physical Exam
General: Well developed, well nourished in NAD.
Neck: Supple, no JVD, HJR, carotids +2 B/L, no bruits bilaterally.
Heart: Non displaced PMI, RRR, 2/6 basal systolic murmur, No S3, S4, no rubs.
Lungs: Clear to auscultation bilaterally, no wheeze, rhonchi, rubs bilaterally,
normal expiratory phase.
Extremities: No clubbing, cyanosis or edema bilaterally.
Neuro: Grossly nonfocal, awake, alert and oriented x3.
[2023-12-08] MEDS: NOVOLOG FLEXPEN-LOW RESISTANCE 2 UNITS SC ×2 (12:52→16:59)
--- NOTE | 2023-12-08 16:22 | PTCARENOTE ---
Pt AAO x3, FLORES well, OB with minimal assistance; uses walker, no c/o weakness/dizziness. NIHSS 0. VSS. Telemetry:NSR. On room air, pulseox 95%, no c/o SOB. Abd soft, rounded, brian PO well. Voids on BSC without difficulty. Resting in bed at
present, no c/o. Will continue to monitor.
--- NOTE | 2023-12-08 16:43 | CM ---
Lisa is hoping to go home today, as her is in hospice at the [facility] [place]. She has been offered home health services but declined same today.
CM will follow to assist with services if agreed upon by patient.
Pharmacy: [facility]
PCP: DR Lopez
[2023-12-08 16:54] LABS: Glucose - Point of Care 245 mg/dl (70-99)
[2023-12-08] MEDS: NSS IV (16:59)
--- NOTE | 2023-12-08 18:18 | W.DS.TRANS ---
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
-
Discharge Instructions:
Discharge Diagnosis/Procedures Syncope
CVA
Diet Low Cholesterol,Low Fat,2 Gram Sodium
Blood Work bmp with pcp within 1 week
Instructions:
Stand-Alone Forms:
Changes to Home Medications: No
Discharge Medications:
DC Medications w/original date entered in [employer]
carbidopa 25 mg-levodopa 100 mg tablet (Sinemet) 1 tab PO HS Parkinson disease #0 tabs 07/15/23
carvedilol 3.125 mg tablet 3.125 mg PO BID CAD #60 tabs 07/15/23
denosumab 60 mg/mL subcutaneous syringe (Prolia) 60 mg SC [id number] Osteoporosis #0 mL 07/15/23
evolocumab 140 mg/mL subcutaneous syringe (Repatha Syringe) 140 mg SC Q2W HLD #0 mL 07/15/23
ezetimibe 10 mg tablet (Zetia) 10 mg PO DAILY HLD #0 tabs 07/15/23
furosemide 20 mg tablet (Lasix) 20 mg PO Q OTHER DAY HF #30 tabs 07/15/23
mirabegron 50 mg tablet,extended release 24 hr (Myrbetriq) 50 mg PO DAILY overactive bladder #0 tabs 07/15/23
sertraline 50 mg tablet 50 mg PO DAILY Depression #0 tabs 07/15/23
insulin lispro 100 unit/mL subcutaneous pen (Humalog KwikPen (U-100) Insulin) 5 unit SC HS 10/20/23
insulin lispro 100 unit/mL subcutaneous pen (Humalog KwikPen (U-100) Insulin) 8 unit SC DAILY 10/20/23
oiitdxfi-nlbb-kncp 8 mg-folic 400 mcg-K 50 mcg-lutein 300 mcg tablet (Centrum Silver Women) 1 tab PO DAILY 10/20/23
ticagrelor 90 mg tablet (Brilinta) 90 mg PO BID CAD 10/20/23
aspirin 81 mg tablet,delayed release 81 mg PO DAILY 12/06/23
cholecalciferol (vitamin D3) 25 mcg (1,000 unit) tablet (Vitamin D3) 25 mcg PO DAILY 12/06/23
cyanocobalamin (vitamin B-12) 500 mcg tablet 500 mcg PO DAILY 12/06/23
Home Medication Changes
na
Pending Results: No
== END 2023-12-08 20:00 | disposition home or self-care (01) | DRG 307 ==
LOC: 4 EAST ACU 12:41
PROVIDERS: Emergency Medicine; Internal Medicine Cardiovascular Disease; ADMITTING PHYSICIAN Hospitalist; ATTENDING PHYSICIAN Internal Medicine; CONSULT PHYSICIAN Internal Medicine Cardiovascular Disease; CONSULT PHYSICIAN Student in an Organized Health Care Education/Training Program; EMERGENCY PHYSICIAN Emergency Medicine; FAMILY PHYSICIAN Internal Medicine Geriatric Medicine
PROC: B24BZZZ Ultrasonography of Heart with Aorta (ICD-10-PCS; 2023-12-08)
DX: I35.2 Nonrheumatic aortic (valve) stenosis with insufficiency (principal); I13.2 Hypertensive heart and chronic kidney disease with heart failure and with stage 5 chronic kidney disease, or end stage renal disease; Q61.3 Polycystic kidney, unspecified; I50.22 Chronic systolic (congestive) heart failure; N18.5 Chronic kidney disease, stage 5; D63.1 Anemia in chronic kidney disease; E11.22 Type 2 diabetes mellitus with diabetic chronic kidney disease; E11.51 Type 2 diabetes mellitus with diabetic peripheral angiopathy without gangrene; F32.A Depression, unspecified; Z66 Do not resuscitate; R55 Syncope and collapse; I25.10 Atherosclerotic heart disease of native coronary artery without angina pectoris; K21.9 Gastro-esophageal reflux disease without esophagitis; N32.81 Overactive bladder; E78.00 Pure hypercholesterolemia, unspecified; M81.0 Age-related osteoporosis without current pathological fracture; E87.6 Hypokalemia; F41.9 Anxiety disorder, unspecified; K22.70 Barrett's esophagus without dysplasia; Z63.8 Other specified problems related to primary support group; I25.2 Old myocardial infarction; Z95.5 Presence of coronary angioplasty implant and graft; Z79.02 Long term (current) use of antithrombotics/antiplatelets; Z79.82 Long term (current) use of aspirin; Z79.4 Long term (current) use of insulin; Z86.73 Personal history of transient ischemic attack (TIA), and cerebral infarction without residual deficits; Z85.01 Personal history of malignant neoplasm of esophagus; Z85.51 Personal history of malignant neoplasm of bladder; Z88.8 Allergy status to other drugs, medicaments and biological substances
CPT/HCPCS: 70450; 80048; 80053; 80061; 81003; 81015; 82962; 83036; 84484; 85025; 85027; 87086; 93005; 93306; 97162; 97166; 99284

== ENCOUNTER → 2023-12-16 13:42 | Outpatient (REF) | payer OTHER, SELFPAY | LOC: RAD 13:42 | PROVIDERS: ATTENDING PHYSICIAN Registered Nurse; FAMILY PHYSICIAN Internal Medicine Geriatric Medicine | DX: I73.9 Peripheral vascular disease, unspecified (principal) | CPT/HCPCS: 93922; 93925; 93990 ==

== ENCOUNTER 2023-12-29 17:18 | Emergency (ER) | payer OTHER, SELFPAY ==
[2023-12-29 17:19] VITALS: BP 141/67
[2023-12-29 17:24] LABS: Glucose - Point of Care 116 mg/dl (70-99)
[2023-12-29 17:40] LABS: % Basophils 0.4 % (0-2); % Eosinophils 5.8 % (0-6); % Immature Granulocytes 0.4 % (0-0.5); % Lymphocytes 13.8 % (20.5-51.1); % Monocytes 4.7 % (1.7-9.3); % Neutrophils 74.9 % (42.2-75.2); Absolute Eosinophils 0.5 10^3/uL (0-0.7); Absolute Lymphocytes 1.1 10^3/uL (1.2-3.4); Absolute Monocytes 0.4 10^3/uL (0.1-0.6); Absolute Neutrophils 6.2 10^3/uL (1.4-6.5); Hematocrit 36.7 % (37.0-47.0); Hemoglobin 11.9 g/dL (12.0-16.0); Mean Corp Hgb Conc. 32.4 g/dL (33.0-37.0); Mean Corpuscular Hgb 31.2 pg (27.0-31.0); Mean Corpuscular Volume 96.1 fL (81.0-99.0); Nucleated Red Blood Cells % 0 %; Platelet Count 212 10^3/uL (130-400); Red Blood Cell Count 3.82 10^6/uL (4.20-5.40); Red Cell Dist. Width 13.2 % (11.5-14.5); White Blood Cell Count 8.3 10^3/uL (4.8-10.8)
[2023-12-29 17:58] LABS: ALT (SGPT) < 10 U/L (0-35); AST (SGOT) 32 U/L (14-36); Albumin 4.2 g/dl (3.5-5.0); Alkaline Phosphatase 47 U/L (38-126); Blood Urea Nitrogen 69 mg/dl (7-17); Calcium 9.4 mg/dl (8.4-10.2); Carbon Dioxide 21 mmol/L (22-30); Chloride 107 mmol/L (98-107); Glucose 102 mg/dl (70-99); Potassium 4.3 mmol/L (3.5-5.1); Sodium 137 mmol/L (135-145); Total Bilirubin 0.5 mg/dl (0.2-1.3); Total Protein 6.4 g/dl (6.3-8.2); eGFR 13.93
[2023-12-29 21:14] LABS: Troponin I 0.023 ng/ml
[2023-12-29 22:30] VITALS: BP 161/65
--- NOTE | 2023-12-29 22:56 | ED.GENMED ---
History of Present Illness
General
Chief Complaint: Fainting/Passed Out
Source: patient
Exam Limitations: none
Time Seen by Provider: 12/29/23 20:12
Nursing documentation reviewed up to this point in time: agreed with
History of Present Illness
History of Present Illness:
83-year-old female with past medical history of CAD hypertension hyperlipidemia presenting to the emergency department today with concerns of an episode where she passed out. She felt very lightheaded was already sitting did not sustain any trauma.
She claims that she was in a very contentious circumstance prior to that earlier in the day. Denies any preceding palpitations chest pain shortness of breath otherwise feels well at this time
Past History
Past History
ED Past Medical History: CAD and Other (Syncope)
ED Past Surgical History: Other (esophagectomy)
Social History
Tobacco: Non-smoker
Personal:
Living: with family
Employment: Retired
Review of Systems
Review of Systems
Allergies reviewed?: Yes
All Other Systems: ROS reviewed and negative except as documented in HPI and ROS
Phy Exam
Physical Exam
Physical Exam:
GENERAL: Alert , in no apparent distress
EYE: pupils equal and reactive
NECK: Supple, no significant adenopathy.
ENT: o/p clr, mmm.
CARDIAC: Regular rate and rhythm .
LUNGS: Clear breath sounds bilaterally, no acute respiratory distress, no wheezes/rales/rhonchi
ABDOMEN: Soft, without focal tenderness, no r/g, no cvat
NEUROLOGICAL: Alert and oriented, no focal neuro deficits 5 out of 5 upper and lower extremity strength normal sensation with palpating bilaterally normal finger-nose and [id number] no pronator drift
SKIN: Warm and dry, skin intact.
MUSCULOSKELETAL: No edema, well perfused.
PSYCH: Normal and appropriate interaction.
Course
Orders/Labs/Results
Orders:
Orders
12/29/23 17:24
Electrocardiogram (*1) Urgent
Reason for Study: Syncope
EKG- Treatment ONCE
12/29/23 17:33
Complete Blood Count/With Diff Urgent
Comprehensive Metabolic Panel Urgent
12/29/23 20:40
Troponin I Urgent
Abnormal Lab Results
12/29/23 12/29/23
17:22 17:33
RBC 3.82 L 10^6/uL
(4.20-5.40)
Hgb 11.9 L g/dL
(12.0-16.0)
Hct 36.7 L %
(37.0-47.0)
MCH 31.2 H pg
(27.0-31.0)
MCHC 32.4 L g/dL
(33.0-37.0)
Absolute Lymphs (auto) 1.1 L 10^3/uL
(1.2-3.4)
Lymphocytes % 13.8 L %
(20.5-51.1)
Carbon Dioxide 21 L mmol/L
(22-30)
BUN 69 H mg/dl
(7-17)
Creatinine 3.2 H mg/dL
(0.6-1.0)
Glucose 102 H mg/dl
(70-99)
POC Glucose 116 H mg/dl
(70-99)
12/29/23 17:33
12/29/23 17:33
Vital Signs
Initial and Last Documented VS:
Initial Vital Signs
Temp Pulse Resp BP Pulse Ox
98.2 F 76 16 141/67 98
12/29/23 17:19 12/29/23 17:19 12/29/23 17:19 12/29/23 17:19 12/29/23 17:19
Last Documented Vital Signs
Temp Pulse Resp BP Pulse Ox
98.2 F 98 16 161/65 98
12/29/23 17:19 12/29/23 22:30 12/29/23 22:30 12/29/23 22:30 12/29/23 22:30
MDM/Problems Addressed
MDM/Problems Addressed:
84-year-old female presenting to the emergency department today with concerns of syncopal episode. Here she is well-appearing no acute distress vital signs normal upon arrival. Labs unremarkable CKD but at baseline. EKG does show very subtle
changes but may be from lead placement as gender morphology is normal. Troponin negative. Very unlikely be ACS related. Patient claims that she has been asymptomatic for multiple hours and the seem to occur after a very stressful event earlier
today. Unlikely to be related to life-threatening etiology advised for close outpatient follow-up. Return precautions given.
*Critical Care Note
Total Time (30-74mins, 75-104mins- exclusive of procedures): Not Applicable
ED Attending Note
-
Portions of this chart may have been created with voice recognition software.� Occasional wrong word or��sound alike� substitutions may have occurred due to the inherent limitations of voice recognition software.
Discharge Plan
Departure
Patient Disposition: Home (Routine Discharge)
Date of Disposition: 12/29/23
Time of Disposition: 22:58
Patient with high blood pressure during this ER visit?: No
Condition: Good
Covid-19: Not Applicable
Discharge Problem:
Syncope
Instructions: Syncope (Fainting) (DC)
Prescriptions:
No Action
carvedilol 3.125 mg Tablet
3.125 mg PO BID Qty: 60 2RF
carbidopa-levodopa [Sinemet] 25-100 mg Tablet
1 tab PO HS Qty: 0 0RF
sertraline 50 mg Tablet
50 mg PO DAILY Qty: 0 0RF
ezetimibe [Zetia] 10 mg Tablet
10 mg PO DAILY Qty: 0 0RF
Prolia 60 mg/mL Syringe
60 mg SC [id number] Qty: 0 0RF
mirabegron [Myrbetriq] 50 MG tablet extended release 24 hr
50 mg PO DAILY Qty: 0 0RF
Repatha Syringe 140 mg/mL Syringe
140 mg SC Q2W Qty: 0 0RF
Rx Instructions:
10/28/23- next dose
furosemide [Lasix] 20 mg tablet
20 mg PO Q OTHER DAY Qty: 30 0RF
insulin lispro [Humalog KwikPen Insulin] 100 unit/mL Insulin Pen
8 unit SC DAILY
Rx Instructions:
AM
insulin lispro [Humalog KwikPen Insulin] 100 unit/mL Insulin Pen
5 unit SC HS
Centrum Silver Women 8 mg iron-400 mcg-50 mcg Tablet
1 tab PO DAILY
Brilinta 90 mg tablet
90 mg PO BID
Hold Instructions: Resume on 10/24/23.
cyanocobalamin (vitamin B-12) 500 mcg tablet
500 mcg PO DAILY
cholecalciferol (vitamin D3) [Vitamin D3] 25 mcg (1,000 unit) Tablet
25 mcg PO DAILY
aspirin 81 mg tablet,delayed release (DR/EC)
81 mg PO DAILY
Referrals:
Lamar Lopez MD [Family Provider] -
Activity Restrictions/Additional Instructions:
You came to the emergency department today after syncopal event. Here you had a reassuring assessment. 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 Return to the emergency department for any worsening, new or concerning symptoms.
Interventions
Interventions:
*General Assessment Last Done: 12/29/23 21:00
*Neglect/Abuse Screening Last Done: 12/29/23 21:00
ED- Fall Risk Assessment Last Done: 12/29/23 21:00
*ED COVID-19 Vaccine History Last Done: 12/29/23 17:19
ED- Cardiac Assessment Last Done: 12/29/23 21:00
ED- Neurological Assessment Last Done: 12/29/23 21:00
Discharge Date and Time
Print Language: K[place]IL[place]
== END 2023-12-29 23:31 | disposition home or self-care (01) ==
LOC: EMR 17:18
PROVIDERS: Physician Assistant; EMERGENCY PHYSICIAN Student in an Organized Health Care Education/Training Program; FAMILY PHYSICIAN Internal Medicine Geriatric Medicine
DX: R55 Syncope and collapse (principal); I25.10 Atherosclerotic heart disease of native coronary artery without angina pectoris; I12.9 Hypertensive chronic kidney disease with stage 1 through stage 4 chronic kidney disease, or unspecified chronic kidney disease; N18.9 Chronic kidney disease, unspecified; E78.5 Hyperlipidemia, unspecified
CPT/HCPCS: 99284; 80053; 82962; 84484; 85025; 93005

== ENCOUNTER → 2024-01-19 12:58 | Outpatient (REF) | payer OTHER, SELFPAY | LOC: HWRCS 12:58 | PROVIDERS: ATTENDING PHYSICIAN Internal Medicine Cardiovascular Disease; FAMILY PHYSICIAN Internal Medicine Geriatric Medicine | DX: I50.22 Chronic systolic (congestive) heart failure (principal) | CPT/HCPCS: 93308 ==

== ENCOUNTER 2024-03-04 18:21 | Inpatient (IN) | payer OTHER, SELFPAY ==
[2024-03-04 15:02] VITALS: BP 128/56
[2024-03-04 15:04] VITALS: BP 128/56; BMI 19.2
--- NOTE | 2024-03-04 15:15 | ED.GENMED ---
History of Present Illness
General
Chief Complaint: Fainting/Passed Out
Source: patient and ambulance crew
Exam Limitations: none
Time Seen by Provider: 03/04/24 15:01
Nursing documentation reviewed up to this point in time: agreed with
History of Present Illness
History of Present Illness:
84-year-old female presents emergency room complaining of syncope x 2. She does not recall passing out. A similar thing happened in December for which she was hospitalized.
Past History
Past History
ED Past Medical History: CAD and Other (Syncope)
ED Past Surgical History: Other (esophagectomy)
Social History
Tobacco: Non-smoker
Personal:
Living: with family
Employment: Retired
Review of Systems
Review of Systems
Allergies reviewed?: Yes
All Other Systems: Not applicable
Constitutional: Reports no symptoms
EENT: Reports no symptoms
Respiratory: Reports no symptoms
Cardiac: Reports syncope
ABD/GI: Reports no symptoms
: Reports no symptoms
Musculoskeletal: Reports no symptoms
Skin: Reports no symptoms
Neurological: Reports no symptoms
Endocrine: Reports no symptoms
Hematologic/Lymphatic: Reports no symptoms
Psychiatric: Reports no symptoms
Phy Exam
Physical Exam
Physical Exam:
Physical Exam
General: no apparent distress, not acutely ill
Neck: supple. no meningeal signs. normal posterior pharynx
Heart: s1/s2 regular rate and rhythm, systolic ejection murmur. equal radial
pulses.
HEENT: Pupils equal round reactive to light, EOMI
Lungs: no acute respiratory distress. clear bilaterally
Abdomen: normal bowel sounds. not tender. no CVAT
Neuro: alert and oriented. no focal neurological deficits cranial nerves II through XII intact
Skin: no rash
Psychiatric: well kept. interactive and cooperative
Extremities: no edema. no calf tenderness. negative homans. good distal pulses, fistula with palpable thrill left arm
Scores
Heart Failure Risk
Heart Failure Risk Score: Yes
History of Stroke or TIA: Yes
History of intubation for respiratory distress: No
Heart rate on ED arrival >/= 110: No
SaO2 <90% on arrival on room air: No
HR >/=110 during 3min walk test (or too ill to perform test): No
ECG has acute ischemic changes: No
Urea >/=12mmol/L (BUN 33.6mg/dL): Yes
Serum CO2>/=35mmol/L: No
Troponin I or T elevated to SD Level (0.4mg/dL): No
NT-proBNP >/=5,000ng/L (5,000pg/ml): Yes
HF Risk Score: 3
Admission Status: HIGH RISK 15.9% Consider SNF treatment or admission to hospital
Course
Orders/Labs/Results
Orders:
Orders
03/04/24 15:06
Electrocardiogram (*1) Urgent
Reason for Study: Syncope
03/04/24 15:07
EKG- Treatment ONCE
03/04/24 15:12
Cardiac Monitoring- Treatment ONCE
03/04/24 15:13
IV Insert/Care/Rem.- Treatment PRN
Complete Blood Count/With Diff Urgent
Comprehensive Metabolic Panel Urgent
03/04/24 16:15
NT-proBNP Urgent
Comment: PROBNP ADDED ON BY FLOOR 4:30PM 03-04-24
Troponin I Urgent
03/04/24 16:24
Add On- LAB Urgent
Tests Added?: pro-bnp
Abnormal Lab Results
03/04/24
15:13
RBC 3.46 L 10^6/uL
(4.20-5.40)
Hgb 10.9 L g/dL
(12.0-16.0)
Hct 31.6 L %
(37.0-47.0)
MCH 31.5 H pg
(27.0-31.0)
Immature Gran % 0.7 H %
(0-0.5)
Eosinophils % 8.7 H %
(0-6)
BUN 72 H mg/dl
(7-17)
Creatinine 3.7 H mg/dL
(0.6-1.0)
Calcium 10.6 H mg/dl
(8.4-10.2)
03/04/24 15:13
03/04/24 15:13
Vital Signs
Initial and Last Documented VS:
Initial Vital Signs
Pulse Resp BP Pulse Ox
70 17 128/56 98
03/04/24 15:02 03/04/24 15:02 03/04/24 15:02 03/04/24 15:02
Last Documented Vital Signs
Temp Pulse Resp BP Pulse Ox
97.5 F 84 17 128/56 100
03/04/24 15:04 03/04/24 16:45 03/04/24 16:45 03/04/24 15:04 03/04/24 16:45
MDM/Problems Addressed
Differential Diagnosis Includes:
Renal failure, dysrhythmia, syncope
MDM/Problems Addressed:
84-year-old female with syncope episode x 2, unclear etiology, history of CHF and aortic stenosis. Patient also has end-stage renal disease. Not yet on hemodialysis.
Chronic conditions affecting care: HTN, CAD, Cardiomyopathy and Kidney disease
Acute Exacerbation and/or Progression of Chronic Illness: HTN, CAD, Cardiomyopathy and Kidney disease
*Pulse Oximetry
Patient hypoxic: no
*EKG
Interpreted by ED Provider?: Yes
EKG Intrepretation Date: 03/04/24
EKG Intrepretation Time: 15:12
Interpretation: abnormal
Comparison EKG: no changes
Heart Rate: 70
Rate: normal
Rhythm: sinus
[place]: normal axis
Interval: normal interval
QRS Pattern: normal QRS
Ischemia: T-wave inversion
*Undergraduate Internship Interpretation
Rate: normal
Interpretation: normal
Heart Rate: 72
Rhythm: sinus
*Critical Care Note
Total Time (30-74mins, 75-104mins- exclusive of procedures): Not Applicable
Data Reviewed
Review of Other/Old Records Reveals: Labs (Creatinine elevating from prior)
Source: records
Patient Management
Social determinants of health affecting care: Living situation
Discussion with other providers: Hospitalist
Escalation/DeEscalation of care consider admission/obs:
Admit indicated
ED Attending Note
-
Portions of this chart may have been created with voice recognition software.� Occasional wrong word or��sound alike� substitutions may have occurred due to the inherent limitations of voice recognition software.
Discharge Plan
Departure
Patient Disposition: Admit
Date of Disposition: 03/04/24
Time of Disposition: 17:03
Admit to: Telemetry
Presentation/result/management discussed w/ accepting MD/DO: Hospitalist
Patient with high blood pressure during this ER visit?: Yes
Condition: Good
Discharge Problem:
Syncope, CKD (chronic kidney disease), stage IV, Diastolic heart failure
Prescriptions:
No Action
carvedilol 3.125 mg Tablet
3.125 mg PO BID Qty: 60 2RF
carbidopa-levodopa [Sinemet] 25-100 mg Tablet
1 tab PO HS Qty: 0 0RF
sertraline 50 mg Tablet
50 mg PO DAILY Qty: 0 0RF
ezetimibe [Zetia] 10 mg Tablet
10 mg PO DAILY Qty: 0 0RF
Prolia 60 mg/mL Syringe
60 mg SC [id number] Qty: 0 0RF
mirabegron [Myrbetriq] 50 MG tablet extended release 24 hr
50 mg PO DAILY Qty: 0 0RF
Repatha Syringe 140 mg/mL Syringe
140 mg SC Q2W Qty: 0 0RF
Rx Instructions:
10/28/23- next dose
furosemide [Lasix] 20 mg tablet
20 mg PO Q OTHER DAY Qty: 30 0RF
insulin lispro [Humalog KwikPen Insulin] 100 unit/mL Insulin Pen
8 unit SC DAILY
Rx Instructions:
AM
insulin lispro [Humalog KwikPen Insulin] 100 unit/mL Insulin Pen
5 unit SC HS
Centrum Silver Women 8 mg iron-400 mcg-50 mcg Tablet
1 tab PO DAILY
Brilinta 90 mg tablet
90 mg PO BID
cyanocobalamin (vitamin B-12) 500 mcg tablet
500 mcg PO DAILY
cholecalciferol (vitamin D3) [Vitamin D3] 25 mcg (1,000 unit) Tablet
25 mcg PO DAILY
aspirin 81 mg tablet,delayed release (DR/EC)
81 mg PO DAILY
Referrals:
Lamar Lopez MD [Family Provider] -
Interventions
Interventions:
*Risk Screen - Suicide Last Done: 03/04/24 15:07
*General Assessment Last Done: 03/04/24 15:07
*Neglect/Abuse Screening Last Done: 03/04/24 15:07
*ED COVID-19 Vaccine History Last Done: 03/04/24 15:07
Discharge Date and Time
Print Language: AFGHAN
[2024-03-04 15:33] LABS: % Basophils 0.5 % (0-2); % Eosinophils 8.7 % (0-6); % Immature Granulocytes 0.7 % (0-0.5); % Lymphocytes 23.7 % (20.5-51.1); % Monocytes 7.6 % (1.7-9.3); % Neutrophils 58.8 % (42.2-75.2); Absolute Eosinophils 0.5 10^3/uL (0-0.7); Absolute Lymphocytes 1.4 10^3/uL (1.2-3.4); Absolute Monocytes 0.5 10^3/uL (0.1-0.6); Absolute Neutrophils 3.5 10^3/uL (1.4-6.5); Hematocrit 31.6 % (37.0-47.0); Hemoglobin 10.9 g/dL (12.0-16.0); Mean Corp Hgb Conc. 34.5 g/dL (33.0-37.0); Mean Corpuscular Hgb 31.5 pg (27.0-31.0); Mean Corpuscular Volume 91.3 fL (81.0-99.0); Mean Platelet Volume 10.1 fL (7.4-10.4); Nucleated Red Blood Cells % 0 %; Platelet Count 230 10^3/uL (130-400); Red Blood Cell Count 3.46 10^6/uL (4.20-5.40); Red Cell Dist. Width 13.1 % (11.5-14.5)
[2024-03-04 15:38] LABS: ALT (SGPT) < 10 U/L (0-35); AST (SGOT) 28 U/L (14-36); Albumin 4.1 g/dl (3.5-5.0); Alkaline Phosphatase 49 U/L (38-126); Blood Urea Nitrogen 72 mg/dl (7-17); Calcium 10.6 mg/dl (8.4-10.2); Carbon Dioxide 24 mmol/L (22-30); Chloride 104 mmol/L (98-107); Estimated Creatinine Clearance 8 ml/min; Glucose 92 mg/dl (70-99); Potassium 4.5 mmol/L (3.5-5.1); Sodium 141 mmol/L (135-145); Total Bilirubin 0.5 mg/dl (0.2-1.3); Total Protein 6.3 g/dl (6.3-8.2); eGFR 11.63
--- NOTE | 2024-03-04 15:51 | EDRN ---
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
[2024-03-04 16:46] LABS: NT-proBNP 7400 pg/ml; Troponin I 0.013 ng/ml
--- NOTE | 2024-03-04 18:11 | HPS.HSE ---
Addendum entered and electronically signed by Galindo Ruiz MD 03/04/24 18:38:
Syncope
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
-Consult cardiology as history of aortic stenosis
- -Event occurring while sitting down, was not stressed out. Has apple iWatch on which did not alarm during this event. No head strike or trauma
- -Multiple events within a span of 1 hour. Witnessed by nurse at 's hospice facility
-Check orthostatic vitals
-Encourage p.o. intake
- -If orthostatic vitals positive in the morning start compression stockings abdominal binder and consider gentle IV hydration
-Reviewing cardiology's note, noted history of neurocardiogenic syncope. Will have neurology evaluate as well.
Aortic stenosis
-Cardiology consulted. Assess for candidacy for TAVR/SAVR. However CKD stage V. Therefore this might make replacement difficult
CKD stage V, has AV fistula with good thrill bruit, at this time no indication for urgent or emergent hemodialysis. Without features of uremia acidemia hyperkalemia.
See rest of resident note as other chronic issues are stable
Original Note:
Family Physician
-
Family Physician: Lamar Lopez
Chief Complaint
-
Syncope
History of Present Illness
84-year-old female presents today twice on emergency department for multiple episodes of syncope without prodrome. Patient experienced 2 witnessed syncopal episodes, she was sitting in a chair and slumped over. These episodes were witnessed and
she did not hit her head or fall onto the ground. Patient reports she was visiting her who was on hospice at a nursing facility, she lives independently and is able to ambulate on her own with a rollator. In the shelter patient had
her orthostatic blood pressure checked, according the patient her blood pressure dropped to 60/30 when orthostatics were checked. Currently the patient only endorses slight dizziness. Patient will be admitted to telemetry for further monitoring
and workup.
Medical History
Past Medical History
Past Medical History: Reports CAD, HTN, Hypercholesterolemia, Hypothyroidism, IDDM, Renal Failure and Valvular Disease
Additional Past Medical History:
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
hypertension, hypokalemia, orthostasis, history of neurocardiogenic syncope, polycystic kidney disease, PAD, transitional cell carcinoma of the bladder
Past Surgical History: Reports Other
Additional Past Surgical History:
Esophagectomy, PTCA with stents, D&C, oophorectomy, tubal ligation, hysterectomy, appendectomy, hernia surgery, TURBT, cataracts
Social History
Tobacco: Non-smoker
Alcohol: None
Drug: None
Personal:
Living: Assisted Living
Employment: Retired
Family History
Family History: Not pertinent
Allergies / Home Medications
Allergies reflects when Allergies were last updated in [facility].
Home Medications with original date entered in [facility]
Allergy/Medication List:
Allergies
Allergy/AdvReac Type Severity Reaction Status Date / Time
amitriptyline Allergy Unknown Verified 12/29/23 17:24
amitriptyline HCl Allergy Unknown Verified 12/29/23 17:24
[From Triavil 2-10]
atorvastatin Allergy Unknown Verified 12/29/23 17:24
calcitonin [Calcitonin] Allergy Unknown Verified 12/29/23 17:24
cefaclor [From Ceclor] Allergy Unknown Verified 12/29/23 17:24
cephalexin Allergy Unknown Verified 12/29/23 17:24
Cephalosporins Allergy Unknown Verified 12/29/23 17:24
ciprofloxacin Allergy Unknown Verified 12/29/23 17:24
desipramine Allergy Unknown Verified 12/29/23 17:24
desipramine HCl Allergy Unknown Verified 12/29/23 17:24
[From Norpramin]
hydrochlorothiazide Allergy Unknown Verified 12/29/23 17:24
iodine Allergy Unknown Verified 12/29/23 17:24
latex Allergy Rash Verified 12/29/23 17:24
metolazone Allergy Unknown Verified 12/29/23 17:24
metronidazole Allergy Unknown Verified 12/29/23 17:24
nortriptyline Allergy Unknown Verified 12/29/23 17:24
penicillin G Allergy Unknown Verified 12/29/23 17:24
Penicillins Allergy Unknown Verified 12/29/23 17:24
perphenazine Allergy Unknown Verified 12/29/23 17:24
[From Triavil 2-10]
potassium iodide Allergy Unknown Verified 12/29/23 17:24
prochlorperazine Allergy rigid Verified 12/29/23 17:24
[Prochlorperazine]
prochlorperazine edisylate Allergy rigid Verified 12/29/23 17:24
[From Compazine]
prochlorperazine maleate Allergy rigid Verified 12/29/23 17:24
[From Compazine]
Quinolones Allergy Unknown Verified 12/29/23 17:24
sodium iodide Allergy Unknown Verified 12/29/23 17:24
Ovijdnc-ELO-GcR Reductase Allergy restless Verified 12/29/23 17:24
Inhibitor legs and
[Uhwoelf-Qoe-Lpt Reductase leg cramps
Inhibitor]
Sulfa (Sulfonamide Allergy Unknown Verified 12/29/23 17:24
Antibiotics)
sulfamethoxazole Allergy Unknown Verified 12/29/23 17:24
Tetracyclines Allergy Unknown Verified 12/29/23 17:24
trimethoprim Allergy Unknown Verified 12/29/23 17:24
eye drop preservatives Allergy Swelling Uncoded 12/29/23 17:24
miacalcin nasal spray Allergy Unknown Uncoded 12/29/23 17:24
Home Medications
carbidopa 25 mg-levodopa 100 mg tablet (Sinemet) 1 tab PO HS Parkinson disease #0 tabs 07/15/23
carvedilol 3.125 mg tablet 3.125 mg PO BID CAD #60 tabs 07/15/23
denosumab 60 mg/mL subcutaneous syringe (Prolia) 60 mg SC [id number] Osteoporosis #0 mL 07/15/23
evolocumab 140 mg/mL subcutaneous syringe (Repatha Syringe) 140 mg SC Q2W HLD #0 mL 07/15/23
ezetimibe 10 mg tablet (Zetia) 10 mg PO DAILY HLD #0 tabs 07/15/23
mirabegron 50 mg tablet,extended release 24 hr (Myrbetriq) 50 mg PO DAILY overactive bladder #0 tabs 07/15/23
sertraline 50 mg tablet 50 mg PO DAILY Depression #0 tabs 07/15/23
ppcpqrsw-ecql-agjb 8 mg-folic 400 mcg-K 50 mcg-lutein 300 mcg tablet (Centrum Silver Women) 1 tab PO DAILY Supplement 10/20/23
ticagrelor 90 mg tablet (Brilinta) 90 mg PO BID CAD 10/20/23
aspirin 81 mg tablet,delayed release 81 mg PO DAILY Blood Clot Prevention/Tx 12/06/23
cholecalciferol (vitamin D3) 25 mcg (1,000 unit) tablet (Vitamin D3) 25 mcg PO DAILY Supplement 12/06/23
cyanocobalamin (vitamin B-12) 500 mcg tablet 500 mcg PO DAILY Supplement 12/06/23
ascorbic acid (vitamin C) 1,000 mg tablet (Vitamin C) 1,000 mg PO DAILY 03/04/24
calcitriol 0.25 mcg capsule 0.25 mcg PO MOWEFR 03/04/24
furosemide 20 mg tablet (Lasix) 20 mg PO Q48H HF 03/04/24
insulin lispro protamine-lispro 100 unit/mL (50-50) subcutaneous pen (Humalog Mix 50-50 KwikPen) 5 unit SC QPM 03/04/24
insulin lispro protamine-lispro 100 unit/mL (50-50) subcutaneous pen (Humalog Mix 50-50 KwikPen) 6 unit SC DAILY 03/04/24
Review of Systems
-
History Source: Patient
Constitutional: Reports No Symptoms
Respiratory: Reports No Symptoms
Cardiac: Reports No Symptoms
Abdomen/GI: Reports No Symptoms
: Reports No Symptoms
Musculoskeletal: Reports No Symptoms
Neurological: Reports Dizzy
Physical Exam
Vital Signs
Vital Signs
Temp Pulse Resp BP Pulse Ox
97.5 F 84 17 128/56 100
03/04/24 15:04 03/04/24 16:45 03/04/24 16:45 03/04/24 15:04 03/04/24 16:45
Physical Exam
General: Well Developed, Well Nourished, No Apparent Distress, Comfortable and Conversant
Respiratory: Clear
Cardiac: S1/S2, Regular Rhythm and Murmur (Systolic ejection murmur, loudest at second right intercostal space)
GI: Soft, Non Tender and Normal Bowel Sounds
Skin: Warm and Dry
Neuro: Awake, Alert, Oriented, AO x 3, No Motor Deficits, Cranial Nerves Intact and No Sensory Deficits
Psych: Calm and Intact Judgment/Insight
Laboratory Results
-
03/04/24 15:13
03/04/24 15:13
Laboratory Results
Total Bilirubin 0.5 mg/dl (0.2-1.3) 03/04/24 15:13
AST 28 U/L (14-36) 03/04/24 15:13
ALT < 10 U/L (0-35) 03/04/24 15:13
Alkaline Phosphatase 49 U/L (38-126) 03/04/24 15:13
Troponin I 0.013 ng/ml 03/04/24 16:15
Data Reviewed
-
Lab Data: Labs Reviewed by me and Discussed with Physician
Impression/Plan
-
IMPRESSION:
84-year-old female with multiple syncopal episodes without prodrome
PLAN:
#Syncope
Admit to telemetry
Orthostatic vitals in morning
Cardiology consult
Nephrology consult
Continue oral hydration
Keep patient on bedrest
Begin abdominal binder and compression SCDs
#Aortic stenosis
Systolic ejection murmur heard loudest at the upper right second intercostal space
Cardiology consulted, will consider echocardiogram most recent echo was 01/19/2024
#Heart failure with reduced ejection fraction
Most recent echo demonstrated 46 to 50% ejection fraction completed 01/19/2024
Continue home furosemide
#Hypertension
Continue home carvedilol
#Hyperlipidemia
Continue home ezetimibe
#Overactive bladder
Continue home mirabegron
#CAD
Patient has history of CAD with multiple stents
Continue home Brilinta, carvedilol and aspirin
#Parkinson's disease
Patient takes carbidopa levodopa at home
Continue home meds
#Insulin-dependent diabetes mellitus
Continue home insulin regiment
Daily Accu-Cheks, adjust as needed
#Anxiety/depression
Continue home sertraline
CODE STATUS: DNR/DNI
Diet: Diabetic
DVT prophylaxis subcu heparin 5000 every 8 hours
[2024-03-04 18:17] LABS: Glucose - Point of Care 272 mg/dl (70-99)
[2024-03-04 20:00] VITALS: BP 146/70; BMI 18.7
[2024-03-04] MEDS: BRILINTA 90 MG PO (21:06)
[2024-03-04] MEDS: SINEMET 25-100 1 TABLET PO (21:07)
[2024-03-04] MEDS: COREG 3.125 MG PO (21:07)
[2024-03-04 21:42] LABS: Glucose - Point of Care 263 mg/dl (70-99)
[2024-03-04] MEDS: NOVOLOG FLEXPEN-LOW RESISTANCE 3 UNITS SC (21:46)
[2024-03-04 23:09] VITALS: BP 147/68
[2024-03-04] MEDS: HEPARIN 5000 UNITS SC (23:52)
[2024-03-05 03:00] VITALS: BP 125/62; BP 165/69
[2024-03-05 06:00] VITALS: BMI 18.8
[2024-03-05 07:24] LABS: INR 1.08
[2024-03-05 07:26] LABS: % Basophils 0.6 % (0-2); % Immature Granulocytes 0.3 % (0-0.5); % Lymphocytes 30.9 % (20.5-51.1); % Monocytes 8.8 % (1.7-9.3); % Neutrophils 51.4 % (42.2-75.2); Absolute Eosinophils 0.5 10^3/uL (0-0.7); Absolute Monocytes 0.6 10^3/uL (0.1-0.6); Absolute Neutrophils 3.3 10^3/uL (1.4-6.5); Hematocrit 31.1 % (37.0-47.0); Hemoglobin 10.8 g/dL (12.0-16.0); Mean Corp Hgb Conc. 34.7 g/dL (33.0-37.0); Mean Corpuscular Hgb 31.6 pg (27.0-31.0); Mean Corpuscular Volume 90.9 fL (81.0-99.0); Mean Platelet Volume 10.1 fL (7.4-10.4); Nucleated Red Blood Cells % 0 %; Platelet Count 185 10^3/uL (130-400); Red Blood Cell Count 3.42 10^6/uL (4.20-5.40); Red Cell Dist. Width 13.1 % (11.5-14.5); White Blood Cell Count 6.3 10^3/uL (4.8-10.8)
[2024-03-05 07:29] VITALS: BP 147/63
[2024-03-05 07:45] LABS: ALT (SGPT) < 10 U/L (0-35); AST (SGOT) 32 U/L (14-36); Albumin 4.3 g/dl (3.5-5.0); Alkaline Phosphatase 61 U/L (38-126); Blood Urea Nitrogen 70 mg/dl (7-17); Carbon Dioxide 26 mmol/L (22-30); Chloride 102 mmol/L (98-107); Estimated Creatinine Clearance 9 ml/min; Glucose 138 mg/dl (70-99); Potassium 4.1 mmol/L (3.5-5.1); Sodium 141 mmol/L (135-145); Total Bilirubin 0.6 mg/dl (0.2-1.3); Total Protein 6.6 g/dl (6.3-8.2); eGFR 12.43
[2024-03-05 07:55] LABS: Glucose - Point of Care 180 mg/dl (70-99)
[2024-03-05 07:55] LABS: Ammonia < 9 umol/L (9-30)
[2024-03-05] MEDS: NOVOLOG FLEXPEN-LOW RESISTANCE 1 UNITS SC (08:10)
[2024-03-05] MEDS: MYRBETRIQ EXTENDED RELEASE 50 MG PO (08:11)
[2024-03-05] MEDS: BRILINTA 90 MG PO ×2 (08:11→20:13)
[2024-03-05] MEDS: COREG 3.125 MG PO ×2 (08:11→20:13)
[2024-03-05] MEDS: ZOLOFT 50 MG PO (08:11)
[2024-03-05] MEDS: ASPIR LOW (ENTERIC COATED) 81 MG PO (08:12)
[2024-03-05] MEDS: VITAMIN B-12 500 MCG PO (08:12)
[2024-03-05] MEDS: VITAMIN C 1000 MG PO (08:12)
[2024-03-05] MEDS: ROCALTROL 0.25 MCG PO (08:13)
[2024-03-05 08:16] LABS: TSH 3.49 uIU/ml (0.47-4.68)
[2024-03-05] MEDS: VITAMIN D3 (cholecalciferol) 25 MCG PO (08:19)
[2024-03-05] MEDS: LASIX 20 MG PO (08:19)
[2024-03-05] MEDS: ZETIA 10 MG PO (08:19)
[2024-03-05] MEDS: HEPARIN 5000 UNITS SC ×3 (08:20→23:46)
[2024-03-05 08:35] LABS: Vitamin B12 > 1000 pg/ml (239-931)
--- NOTE | 2024-03-05 08:53 | W.PN.HOSP.TC ---
Addendum entered and electronically signed by Galindo Ruiz MD 03/05/24 12:52:
Syncope
-potline monitor
-Consult cardiology as history of aortic stenosis
- -Event occurring while sitting down, was not stressed out. Has apple iWatch on which did not alarm during this event. No head strike or trauma
- -Multiple events within a span of 1 hour. Witnessed by nurse at 's hospice facility
-Check orthostatic vitals
-Encourage p.o. intake
- -If orthostatic vitals positive in the morning start compression stockings abdominal binder and consider gentle IV hydration
-Per Cards outpt Linq monitor
-Per Neuro MRI EEG Carotid US
Aortic stenosis
-Cardiology consulted. Assess for candidacy for TAVR/SAVR. However CKD stage V. Therefore this might make replacement difficult
CKD stage V, has AV fistula with good thrill bruit, at this time no indication for urgent or emergent hemodialysis. Without features of uremia acidemia hyperkalemia.
If EEG, Carotid Ultrasound and MRI negative can likely DC home.
-Recorded Orthostatics done as supine and standing were negative
Original Note:
Today's Communication/Plan
-
Cardiology evaluation
Neurology evaluation
Consider discharge if cleared by cardio, neuro
Assessment / Plan
Assessment / Plan
IMPRESSION:
84-year-old female with multiple syncopal episodes without prodrome
PLAN:
#Syncope
Monitor on telemetry
Orthostatic vitals pending
Cardiology consult
Planning to follow-up in office with cardiology. Recommended continuing home medications.
Neurology consult,
Neurology ordered MRI brain noncontrast, pending as well as routine EEG, pending
Continue oral hydration
Keep patient on bedrest
Continue abdominal binder and compression SCDs
#Aortic stenosis
Systolic ejection murmur heard loudest at the upper right second intercostal space
Cardiology consulted, cardiology does not believe repeat echocardiogram is warranted. Most recent echo was 01/19/2024
Cardiology considering placing a LINQ monitor implant as outpatient, she has been tentatively scheduled for 03/10/2024
#Heart failure with reduced ejection fraction
Most recent echo demonstrated 46 to 50% ejection fraction completed 01/19/2024
Continue home furosemide
#Hypertension
Continue home carvedilol
#Hyperlipidemia
Continue home ezetimibe
#Overactive bladder
Continue home mirabegron
#CAD
Patient has history of CAD with multiple stents
Continue home Brilinta, carvedilol and aspirin
#Parkinson's disease
Patient takes carbidopa levodopa at home
Continue home meds
#Insulin-dependent diabetes mellitus
Continue home insulin regiment
Daily Accu-Cheks, adjust as needed
#Anxiety/depression
Continue home sertraline
#Extensive allergies
Patient has a very extensive allergy history, unsure how many are real allergies as reactions are unknown and patient said a lot of them are old.
Patient mentions that the only antibiotic she can take are Z-Gregory and clindamycin
Patient is currently not requiring any antibiotics
CODE STATUS: DNR/DNI
Diet: Diabetic
DVT prophylaxis subcu heparin 5000 every 8 hours
Anticipated Discharge: 24 - 48 hours
Subjective/Interval History
-
Date of Service: March 05, 2024
No acute vents overnight
Patient reports brief episode of double vision this morning, waxing waning
Objective Data
-
Labs:
Laboratory Results
03/05/24
06:57
WBC 6.3
Hgb 10.8 L
Hct 31.1 L
Plt Count 185
PT 14.0
INR 1.08
APTT 33.0
Sodium 141
Potassium 4.1
Chloride 102
Carbon Dioxide 26
BUN 70 H
Creatinine 3.5 H
Glucose 138 H
Calcium 11.0 H
Total Bilirubin 0.6
AST 32
ALT < 10
Alkaline Phosphatase 61
Vital Signs:
Vital Signs
Temp Pulse Resp BP Pulse Ox
97.8 F 73 16 147/63 95
03/05/24 07:29 03/05/24 08:19 03/05/24 07:29 03/05/24 08:19 03/05/24 07:29
I&O
03/04/24 03/05/24 03/06/24
06:59 06:59 06:59
Intake Total 480 / 480
Output Total 50 / 50
Balance 430 / 430
Review of Systems
-
History Source: Patient
Constitutional: Reports No Symptoms
EENT: Reports Other (Brief episode of double vision, waxing and waning)
Respiratory: Reports No Symptoms
Cardiac: Reports No Symptoms
Abdomen/GI: Reports No Symptoms
Musculoskeletal: Reports No Symptoms
Neuro: Reports No Symptoms
Physical Exam
-
General: Well Developed, Well Nourished, No Apparent Distress, Comfortable and Conversant
Respiratory: Clear to Auscultation
Cardiac: Regular Rhythm, S1/S2 and Murmur
GI: Soft, Nontender, Nondistended and Normal Bowel Sounds
Musculoskeletal: Other (Left arm AV fistula)
Skin: Warm and Dry
Neuro: Awake, Alert, Oriented and AO x 3
Psych: Calm and Intact Judgement/Insight
Data Reviewed
-
Labs: Labs Reviewed by me and Discussed with Physician
--- NOTE | 2024-03-05 09:22 | CON.CAR ---
Addendum entered and electronically signed by Jose Armando Lainez MD 03/05/24 15:21:
I saw and examined the patient.
The [facility]anger's note was reviewed and I agree with the note.
Comment: Briefly, 84-year-old woman past medical history of heart failure with reduced ejection fraction, orthostasis, prior CVA, Parkinson's and CKD who presents following syncopal episode
Patient tells me she had two syncopal episodes, the first she with prodromal symptoms that she can identify, but the second episode she does not recall the details of
This seems to be an ongoing issue for her and has been worked up in the past without clear etiology
Physical exam and twelve-lead ECG are unremarkable
Telemetry reviewed, she is maintaining normal sinus rhythm, no significant pauses or tachyarrhythmia to explain her symptoms
Continue to monitor on telemetry while here
Check orthostatic vital signs
We can arrange for implantable loop recorder if neurology workup is unrevealing
Original Note:
Consultation
Consultation Request
Date/Time Consultation Requested: 03/05/2024
Date/Time Consultation Performed: 03/05/2024
Requesting Provider: Dr. Ruiz
Performing Provider: Bobbi Neal PA-C for Dr. Lainez
Reason for Consultation: Syncope
Medical History
-
Chief Complaint: syncope
History of Present Illness:
HPI: Lisa is an 84 year old female with PMH of recurrent syncope, chronic HFrEF, CAD, cardiomyopathy, , CKD, polycystic kidney disease, PAD, DM2, Parkinson's disease, bladder cancer, prior CVA, esophageal cancer, DDD, HTN, HLD, and orthostasis.
She presented to [facility] with recurrent syncope. She was recently admitted at 12/2023 with syncope and no clear cause was determined. As OP, had prior windows architect which was unrevealing, however she did not have episode of syncope while wearing
monitor. She has been doing well since her last admission, but states yesterday while sitting and talking, she had sudden episode of syncope with another episode shortly thereafter by report. She notes she had no dizziness or lightheadedness prior
to the episode, but 'felt off'. Per witness report, she slumped over her chair and did not fall or hit her head. Nursing staff nearby reportedly checked her BP after event and noted she did drop with standing. She feels well this morning and denies
any chest pain, palpitations, dizziness, lightheadedness, or SOB.
PMH:
h/o neurocardiogenic syncope
Chronic HFrEF
CAD
h/o STEMI w/ persistent ST segment elevation 07/05/2023
100% occlusion within previously placed stent treated with overlapping 2.5 mm and 3.25 mm Xience AIDEN to LAD 07/05/23
s/p 3 mm Xience LAD stent at [facility] 2012
Cardiomyopathy, EF 46-50% by echo 01/2024.
Moderate aortic stenosis
CKD 4 s/p L fistula 10/28
Polycystic kidney disease
PAD
DM 2
Parkinson's disease
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
h/o remote cerebellar stroke
Anxiety/depression
Pancreatic cyst
h/o esophageal cancer with esophagectomy and gastric pull-up
Degenerative disc disease with lumbosacral neurofibroma
Hypertension
Hypercholesterolemia
Statin intolerant on Repatha
Orthostasis
Past Medical History
Past Medical History: Other (In HPI)
Past Surgical History: Gynecological (D and C) and Other (esophagectomy with gastric pull 1998)
Social History
Tobacco: Non-Smoker
Alcohol: None
Drug: None
Personal:
Employment: Retired
Family History
Family History: Hypertension
Allergies / Home Medications
Allergy/AdvReac Type Severity Reaction Status Date / Time
amitriptyline Allergy Unknown Verified 03/04/24 18:24
amitriptyline HCl Allergy Unknown Verified 12/29/23 17:24
[From Triavil 2-10]
atorvastatin Allergy Unknown Verified 12/29/23 17:24
calcitonin [Calcitonin] Allergy Unknown Verified 12/29/23 17:24
cefaclor [From Ceclor] Allergy Unknown Verified 12/29/23 17:24
cephalexin Allergy Unknown Verified 03/04/24 18:24
Cephalosporins Allergy Unknown Verified 03/04/24 18:24
ciprofloxacin Allergy Unknown Verified 03/04/24 18:24
desipramine Allergy Unknown Verified 12/29/23 17:24
desipramine HCl Allergy Unknown Verified 12/29/23 17:24
[From Norpramin]
hydrochlorothiazide Allergy Unknown Verified 03/04/24 18:24
iodine Allergy Unknown Verified 12/29/23 17:24
latex Allergy Rash Verified 12/29/23 17:24
metolazone Allergy Unknown Verified 03/04/24 18:24
metronidazole Allergy Unknown Verified 03/04/24 18:24
nortriptyline Allergy Unknown Verified 03/04/24 18:24
penicillin G Allergy Unknown Verified 03/04/24 18:24
Penicillins Allergy Unknown Verified 03/04/24 18:24
perphenazine Allergy Unknown Verified 12/29/23 17:24
[From Triavil 2-10]
potassium iodide Allergy TOLERATED Verified 03/04/24 18:24
KCL 06/2023
prochlorperazine Allergy rigid Verified 12/29/23 17:24
[Prochlorperazine]
prochlorperazine edisylate Allergy rigid Verified 12/29/23 17:24
[From Compazine]
prochlorperazine maleate Allergy rigid Verified 12/29/23 17:24
[From Compazine]
Quinolones Allergy Unknown Verified 03/04/24 18:24
sodium iodide Allergy Unknown Verified 12/29/23 17:24
Tatxavj-TWW-NyV Reductase Allergy restless Verified 12/29/23 17:24
Inhibitor legs and
[Ramhjyp-Umc-Xwi Reductase leg cramps
Inhibitor]
Sulfa (Sulfonamide Allergy Unknown Verified 03/04/24 18:24
Antibiotics)
sulfamethoxazole Allergy Unknown Verified 03/04/24 18:24
Tetracyclines Allergy Unknown Verified 03/04/24 18:24
trimethoprim Allergy Unknown Verified 03/04/24 18:24
eye drop preservatives Allergy Swelling Uncoded 12/29/23 17:24
miacalcin nasal spray Allergy Unknown Uncoded 12/29/23 17:24
�Medication �Instructions �Recorded �Confirmed �Type
carbidopa 25 mg-levodopa 100 mg 1 tab PO HS Parkinson disease #0 07/15/23 03/04/24 Rx
tablet (Sinemet) tabs
carvedilol 3.125 mg tablet 3.125 mg PO BID CAD #60 tabs 07/15/23 03/04/24 Rx
denosumab 60 mg/mL subcutaneous 60 mg SC [id number] Osteoporosis #0 07/15/23 03/04/24 Rx
syringe (Prolia) mL
evolocumab 140 mg/mL subcutaneous 140 mg SC Q2W HLD #0 mL 07/15/23 03/04/24 Rx
syringe (Repatha Syringe)
ezetimibe 10 mg tablet (Zetia) 10 mg PO DAILY HLD #0 tabs 07/15/23 03/04/24 Rx
mirabegron 50 mg tablet,extended 50 mg PO DAILY overactive bladder 07/15/23 03/04/24 Rx
release 24 hr (Myrbetriq) #0 tabs
sertraline 50 mg tablet 50 mg PO DAILY Depression #0 tabs 07/15/23 03/04/24 Rx
ietnovap-iuie-enqz 8 mg-folic 400 1 tab PO DAILY Supplement 10/20/23 03/04/24 History
mcg-K 50 mcg-lutein 300 mcg tablet
(Centrum Silver Women)
ticagrelor 90 mg tablet (Brilinta) 90 mg PO BID CAD 10/20/23 03/04/24 History
aspirin 81 mg tablet,delayed 81 mg PO DAILY Blood Clot 12/06/23 03/04/24 History
release Prevention/Tx
cholecalciferol (vitamin D3) 25 25 mcg PO DAILY Supplement 12/06/23 03/04/24 History
mcg (1,000 unit) tablet (Vitamin
D3)
cyanocobalamin (vitamin B-12) 500 500 mcg PO DAILY Supplement 12/06/23 03/04/24 History
mcg tablet
ascorbic acid (vitamin C) 1,000 mg 1,000 mg PO DAILY 03/04/24 03/04/24 History
tablet (Vitamin C)
calcitriol 0.25 mcg capsule 0.25 mcg PO MOWEFR 03/04/24 03/04/24 History
furosemide 20 mg tablet (Lasix) 20 mg PO Q48H HF 03/04/24 03/04/24 History
insulin lispro protamine-lispro 5 unit SC QPM 03/04/24 03/04/24 History
100 unit/mL (50-50) subcutaneous
pen (Humalog Mix 50-50 KwikPen)
insulin lispro protamine-lispro 6 unit SC DAILY 03/04/24 03/04/24 History
100 unit/mL (50-50) subcutaneous
pen (Humalog Mix 50-50 KwikPen)
Review of Systems
-
History Source: Patient
All other systems: Negative unless noted
Physical Exam
Vital Signs
Temp Pulse Resp BP Pulse Ox
97.8 F 73 16 147/63 95
03/05/24 07:29 03/05/24 08:19 03/05/24 07:29 03/05/24 08:19 03/05/24 07:29
Lab Results
03/05/24 06:57
03/05/24 06:57
Troponin I 0.013 ng/ml 03/04/24 16:15
Gxy-M-Gjsbguxuynq Pept 7400 pg/ml 03/04/24 16:15
Physical Exam
General: Well Developed, Well Nourished and No Apparent Distress
HEENT: Normocephalic, Anicteric and Moist Mucous Membranes
Respiratory: Clear and Non Labored Respirations
Cardiac: S1/S2, Regular Rhythm and Murmur
Musculoskeletal: No Clubbing, No Cyanosis and No Edema
Skin: Warm and Dry
Neuro: AO x 3 and Nonfocal/Grossly Intact
Psych: Calm
Impression / Plan
-
PCP: Dr. Lamar Lopez
Publications Inspector: Dr. Trinh Espinoza
Impression:
Presented with recurrent syncope x2
h/o neurocardiogenic syncope
Chronic HFrEF
CAD
h/o STEMI w/ persistent ST segment elevation 07/05/2023
100% occlusion within previously placed stent treated with overlapping 2.5 mm and 3.25 mm Xience AIDEN to LAD 07/05/23
s/p 3 mm Xience LAD stent at [facility] 2012
Cardiomyopathy, EF 46-50% by echo 01/2024.
Moderate aortic stenosis
CKD 4 s/p L fistula 10/28
Polycystic kidney disease
PAD
DM 2
Parkinson's disease
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
h/o remote cerebellar stroke
Anxiety/depression
Pancreatic cyst
h/o esophageal cancer with esophagectomy and gastric pull-up
Degenerative disc disease with lumbosacral neurofibroma
Hypertension
Hypercholesterolemia
Statin intolerant on Repatha
Orthostasis
Echo 05/2022: Small LV, mild septal hypertrophy, EF 60-65%, mild to moderate aortic stenosis, peak/mean gradient 32/17 mmHg, aortic valve area 1.3 cm 2 with moderate aortic regurgitation, mild MR, normal left atrium, normal right heart with normal
pulmonary artery pressure
Echo 07/06/2023: Normal LV size, mid to distal anteroseptal, apical lateral, inferior, anterior, septal severe hypokinesis, EF 40-45%, mild MR, mild to moderate aortic stenosis, peak/mean gradient 31/21 mmHg, valve area 1.2 cm2
Echo 07/09/23: EF 35-40%, hypokinesis mid to distal anterior wall, distal septal wall and apex, no obvious VSD, moderate with mean gradient 29mmHg and LORNA 1.1 cm sq, moderate aortic insufficiency
Echo 08/20/23: EF 35-40%, mid to distal anteroseptal and apical hypokinesis, moderate-severe aortic stenosis with mean gradient of 24 and aortic valve area 0.8. Moderate aortic regurgitation
Echo 01/19/2024: EF 46-50%, mid-distal anterior, apical septal, and apical anterior hypokinesis, mild MR, moderate with peak/mean gradients 35/23 mmHg, mod AR, mild TR
Plan:
-Presented with recurrent syncope while sitting at a table, talking. Reported no dizziness/lightheadedness prior to episode.
-BP checked after event and was hypotensive w/ standing by report. Repeat orthostatic VS this AM.
-Echo 01/19/24 with moderate which appears stable. No need to repeat at this time.
-Neurology ordered carotid US, brain MRI, and EEG await results.
-BP stable this AM. Patient feeling well. Would continue coreg 3.125mg BID
-EKG reviewed and SR, overall stable compared to prior
-Given multiple episodes of syncope recently over the past few months with unclear cause, with prior OP monitoring unremarkable, will plan for OP Linq monitor implant next week.
-She has tentatively been scheduled for Friday, 03/10. Our office will reach out to discuss instructions.
-Continue aspirin and brilinta for h/o CAD w/ PCI of LAD 06/2023.
-Continue Zetia and repatha. Statin intolerant.
HPI: Lisa is an 84 year old female with PMH of recurrent syncope, chronic HFrEF, CAD, cardiomyopathy, , CKD, polycystic kidney disease, PAD, DM2, Parkinson's disease, bladder cancer, prior CVA, esophageal cancer, DDD, HTN, HLD, and orthostasis.
She presented to [facility] with recurrent syncope. She was recently admitted at 12/2023 with syncope and no clear cause was determined. As OP, had prior windows architect which was unrevealing, however she did not have episode of syncope while wearing
monitor. She has been doing well since her last admission, but states yesterday while sitting and talking, she had sudden episode of syncope with another episode shortly thereafter by report. She notes she had no dizziness or lightheadedness prior
to the episode, but 'felt off'. Per witness report, she slumped over her chair and did not fall or hit her head. Nursing staff nearby reportedly checked her BP after event and noted she did drop with standing. She feels well this morning and denies
any chest pain, palpitations, dizziness, lightheadedness, or SOB.
Data Reviewed
-
EKG: Tracing Personally Visualized and interpreted
Labs: Labs Reviewed by me
Old Records: Reviewed
--- NOTE | 2024-03-05 09:35 | CON.NEURO4 ---
Addendum entered and electronically signed by Jay Bowers MD 03/05/24 14:32:
Studies reviewed.
I have personally examined the patient. I reviewed and agree with the INSTRUCTIONAL TECHNOLOGY TEACHER's Note.
My addenda:
Awake, alert, interactive. No acute distress.
Speech intact.
Follows 2-step requests w/o difficulty. No tremor.
Extra-ocular movements grossly intact.
Facial movements full and symmetric. Hearing intact to normal conversational volume.
Normal UE movements bilaterally.
Neck: full ROM.
Chest: no dyspnea
Heart: no JVD
Ext: (-) Clubbing, (-) Cyanosis, (-) Edema
IMPRESSIONS/RECOMMENDATIONS:
Abrupt onset of recurrent syncope, present across approximately 6 years with additional symptomatology including visual changes intermittently which are increasing and a suggestion of orthostatic hypotension. The patient additionally, has a
suggested history of stroke, and parkinsonism.
Check MRI of the brain as planned as outpatient
Follow orthostatic blood pressures with 3-minute increments between each body position change
Check greater than 1 hour EEG
Continue usual antiplatelet agents
Continue current carbidopa/levodopa dosing although patient is not appear to be parkinsonian at this time
D/W patient
Will continue to follow pending results.
Original Note:
Documented by User: Lili Oquendo NP 03/05/24 11:03
Consultation - Neurology 4
-
CONSULTING PHYSICIAN: Jay Bowers MD
REFERRING PHYSICIAN: Hospitalists/Dr. Nina MD Resident
DICTATED BY: CYNTHIA Fonseca
DATE/TIME OF REQUEST: 03/04/24
DATE/TIME OF CONSULTATION: 03/05/24
Reason for Consultation: Recurrent syncope
History of Present Illness:
This is an 84-year-old RH female who has presented to the hospital on with report of recurrent loss of consciousness. Patient was recently evaluated by our Neurology service for a similar episode in December 2023.
From my previous evaluation on 12/08/23:
'This is an 83-year-old right-handed female who has presented to the hospital on 12/06/23 with report of syncope. Patient reports about a 6 year history of syncope. She never has any precipitating symptoms to passing out and it can happen when she
has been sitting for a long time or while she is ambulating. Initially she was fainting more often but now it only happens about every two years. She reports being evaluated at [facility] around the time of her first syncopal episode and she was
told she had Parkinsonism. She is unsure if she has every had any Parkinson disease symptoms and denies any worsening of her functioning since that time. She was put on 1 Sinemet tablet at bedtime at that time. The Sinemet has helped improve her
restless legs. She has used a walker for ambulation for about 3 years, she denies any shuffled gait or recent falls.
Two days ago on 12/06/23 she reports feeling in her usual state. In the afternoon she was sitting outside in the sun visiting her with her children when she suddenly lost consciousness. She denies feeling dizzy, diaphoretic, ringing in her
ears, tunnel vision prior to passing out. The next thing she remembers is being placed in an ambulance in her usual state. She reports that paramedics said her blood pressure was 60/40. Orthostatic vital signs have been unremarkable. CT Head was
obtained today and is suggestive of an acute vs subacute right basal ganglia ischemic infarct. Patient denies any recent headache, dizziness, vision changes, speech/swallow difficulty, nausea, one-sided weakness or numbness, chest pain,
palpitations, and shortness of breath. She denies any symptoms of stroke over the past several weeks or in the past. She denies any recent fever or illness but does endorse significant stress related to her being placed on hospice care
today. She is on DAPT with aspirin and Brilinta due to cardiac stenting she had in June 2023. Outpatient medical records have a cerebellar CVA documented in her PMH, patient does not recall a history of this.'
Orthostatic vital signs were monitored during her previous admission and one recording on 12/07/23 at 0400 demonstrated a systolic drop from 177 to 158, otherwise results were negative. 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 Carotid ultrasound and MRI brain were ordered as an outpatient for further evaluation, but these have not been completed yet.
Yesterday (03/04/24), patient reports that she was sitting down when she suddenly developed a sensation like she was going to pass out. She lost consciousness for less than one minute and reports waking up in her usual state. Within the hour, she
reports she again lost consciousness for less than one minute, this time with no warning. These events were very similar to her prior events with the exception of having a warning sign prior to the first event, that has never happened before. She
denies losing control of bowel/bladder or any tongue biting with these events. He syncopal episodes can occur at any time of day. She also notes a 7-8 year history of intermittent diplopia that can present horizontally or vertically. The diplopia
can last anywhere from seconds to minutes and tends to resolve if she moves her gaze somewhere else. She denies any headache, dizziness, new vision changes, speech/swallow difficulty, numbness, weakness, chest pain, palpitations, and shortness of
breath. She is taking aspirin 81mg and Brilinta 90mg BID for cardiac stent in 06/2023. She is statin intolerant, on Repatha and ezetimibe.
Past Medical History: Recurrent syncope, R basal ganglia ischemic stroke suggested on CT head imaging 12/2023, parkinsonism?, HLD (statin intolerant), STEMI, cardiomyopathy, CKD4, polycystic kidney disease, NIDDM, PVD, transitional cell carcinoma
bladder with cystocele, aortic valve insufficiency, urinary incontinence, pancreatic cyst, ambulatory dysfunction, anxiety/depression,
Surgical History: LUE AVF 10/2023, LAD stent x2, cardiac stent, appendectomy, esophagectomy with gastric pull-up, hernia repair, bladder tumor resection, b/l cataract removal, wisdom teeth removal, pessary, hysterectomy/oophorectomy, b/l tubal
ligation, d&c
Family History: Reviewed and noncontributory.
Social History: Denies tobacco, alcohol, and illicit drug use.
Allergies: See below.
Home Medications: See below.
Review of Symptoms:
Patient denies any fever, headache, chest pain, shortness of breath, GI or symptoms.
�Per the HPI.�All systems are reviewed negative except above.
Physical Exam:
The patient is afebrile, abdomen is nondistended, breathing is unlabored, skin is warm and dry, no edema.
NIH Stroke Scale:
I performed the NIH stroke scale on the patient on 03/05/24 at 0945. The patient scored 0 points on the NIH stroke scale assessment, which were assigned as follows: See below.
Neurologic Examination:
The patient is awake, alert and oriented x 3. She is able to follow commands and answer questions appropriately. There is no aphasia or dysarthria. On cranial nerve assessment, pupils are 3 mm bilateral, round and reactive to light and
accommodation. Visual izquierdo are full. Extraocular movements are reduced with upgaze. Facial sensations are intact and bilaterally symmetrical, there is no facial asymmetry. Hearing is intact bilaterally to normal conversation volume. Tongue palate
and uvula are midline. Sternocleidomastoid strengths are full bilaterally. Motor strengths are 5/5 bilateral upper and lower extremities on medical research [place] scale. There is no drift or involuntary movement noted. Deep tendon reflexes are 2+
bilateral upper and lower extremities and Babinski is absent bilaterally. Sensations of vibration is moderately reduced in distal bilateral lower extremities. There was no extinction noted on double simultaneous stimulation. Coordination is intact
by finger to nose bilaterally.
Lab Results: See below.
Neuro Imaging:
1. CT Head 12/08/23: Small possible acute/subacute infarct in the right basal ganglia/subinsular region. No CT evidence for acute intracranial hemorrhage.
Differentials for the patient's presentation include:
1. Recurrent syncope; symptoms sound more supportive of cardiogenic source or orthostasis, less supportive of seizure, but cannot entirely exclude this diagnosis.
2. Right basal ganglia ischemic stroke suggested on CT head from 12/2023.
Patient has the following risk factors for their symptoms: Recurrent events, HTN, HLD, parkinsonism, age
Recommendations:
-Continue DAPT with aspirin and Brilinta.
-Goal normotension.
-Check orthostatic vital signs as ordered.
-MRI brain noncontrast pending.
-Routine EEG pending.
-Patient would likely benefit from ILR placement/monitoring.
-PT/OT evaluations.
-DVT prophylaxis.
Discussed patient care with: Dr. Bowers, the patient
Vital Signs and Labs
-
Vital Signs and Labs:
Vital Signs
Temp Pulse Resp BP Pulse Ox
97.8 F 73 16 147/63 95
03/05/24 07:29 03/05/24 08:19 03/05/24 07:29 03/05/24 08:19 03/05/24 07:29
Lab Results
03/05/24 06:57
03/05/24 06:57
PT 14.0 Sec (11.4-14.6) 03/05/24 06:57
INR 1.08 03/05/24 06:57
APTT 33.0 Sec (23.4-35.0) 03/05/24 06:57
Sodium 141 mmol/L (135-145) 03/05/24 06:57
Potassium 4.1 mmol/L (3.5-5.1) 03/05/24 06:57
BUN 70 mg/dl (7-17) H 03/05/24 06:57
Glucose 138 mg/dl (70-99) H 03/05/24 06:57
Calcium 11.0 mg/dl (8.4-10.2) H 03/05/24 06:57
Klm-K-Ipijnkybrle Pept 7400 pg/ml 03/04/24 16:15
Vitamin B12 > 1000 pg/ml (239-931) H 03/05/24 06:57
Medications
-
Active Medications
Generic Name Dose Route Start Last Admin
Trade Name Freq PRN Reason Stop Dose Admin
Ascorbic Acid 1,000 mg 03/05/24 08:00 03/05/24 08:12
Ascorbic Acid 500 Mg Tablet PO 04/02/24 07:59 1,000 mg
DAILY REID Administration
Aspirin 81 mg 03/05/24 08:00 03/05/24 08:12
Aspirin 81 Mg (Enteric Coated) Tablet PO 04/02/24 07:59 81 mg
DAILY REID Administration
Bisacodyl 10 mg 03/04/24 17:56
Bisacodyl 10 Mg Rectal Suppository RECTAL 04/01/24 17:55
[id number] PRN
constipation
Calcitriol 0.25 mcg 03/05/24 08:00 03/05/24 08:13
Calcitriol 0.25 Microgram Capsule PO 04/02/24 07:59 0.25 mcg
MoWeFr@0800 REID Administration
Carbidopa/Levodopa 1 tablet 03/04/24 22:00 03/04/24 21:07
Carbidopa (25 Mg)/Levodopa (100 Mg) Regular Release Tablet PO 04/01/24 21:59 1 tablet
HS REID Administration
Carvedilol 3.125 mg 03/04/24 20:00 03/05/24 08:11
Carvedilol 3.125 Mg Tablet PO 04/01/24 19:59 3.125 mg
BID REID Administration
Cholecalciferol 25 mcg 03/05/24 08:00 03/05/24 08:19
Cholecalciferol (Vitamin D3) 25 Mcg Tablet (1,000 Units) PO 04/02/24 07:59 25 mcg
DAILY REID Administration
Cyanocobalamin 500 mcg 03/05/24 08:00 03/05/24 08:12
Cyanocobalamin 1,000 Mcg Tablet PO 04/02/24 07:59 500 mcg
DAILY REID Administration
Dextrose 12.5 grams 03/04/24 21:00
Dextrose 50% (0.5 Grams/Ml) 50 Ml Syringe IV 04/01/24 20:59
[id number] PRN
hypoglycemia
Protocol
Ezetimibe 10 mg 03/05/24 08:00 03/05/24 08:19
Ezetimibe (Zetia) 10 Mg Tablet PO 04/02/24 07:59 10 mg
DAILY REID Administration
Furosemide 20 mg 03/05/24 08:00 03/05/24 08:19
Furosemide 20 Mg Tablet PO 04/02/24 07:59 20 mg
Q48H REID Administration
Glucagon 1 mg 03/04/24 21:00
Glucagon 1 Mg Vial IM 04/01/24 20:59
PRN PRN
hypoglycemia - no IV access
Protocol
Heparin Sodium 5,000 units 03/05/24 00:00 03/05/24 08:20
Heparin 5,000 Units/Ml 1 Ml Vial SC 04/02/24 00:00 5,000 units
Q8 REID Administration
Insulin Aspart 0 units 03/04/24 21:00 03/05/24 08:10
Insulin Aspart Low Resistance 300 Units/3 Ml Pen.Injctr SC 04/01/24 20:59 1 units
AC REID Administration
Protocol
Mirabegron 50 mg 03/05/24 08:00 03/05/24 08:11
Mirabegron Extended Release 25 Mg Tab (Non Form) PO 04/02/24 07:59 50 mg
DAILY REID Administration
Non-Formulary Medication 6 unit 03/05/24 08:00
Insulin Lispro Protamin-Lispro [Humalog Mix 50-50 Kwikpen] SC 04/02/24 07:59
DAILY REID
Non-Formulary Medication 5 unit 03/05/24 18:00
Insulin Lispro Protamin-Lispro [Humalog Mix 50-50 Kwikpen] SC 04/02/24 17:59
QPM REID
Polyethylene Glycol 17 grams 03/04/24 17:56
Polyethylene Glycol Powder 17 Grams Packet PO 04/01/24 17:55
DAILYPRN PRN
constipation
Senna/Docusate Sodium 1 tablet 03/04/24 17:56
Docusate W/Senna (Yolanda-Colace) Tablet PO 04/01/24 17:55
BIDPRN PRN
constipation
Sertraline HCl 50 mg 03/05/24 08:00 03/05/24 08:11
Sertraline 50 Mg Tablet PO 04/02/24 07:59 50 mg
DAILY REID Administration
Sodium Chloride 0 flush 03/04/24 19:00
Sodium Chloride 0.9% (Flush) Syringe IV 04/01/24 18:59
PER PROTOCOL REID
Ticagrelor 90 mg 03/04/24 20:00 03/05/24 08:11
Ticagrelor (Brilinta) 90 Mg Tablet PO 04/01/24 19:59 90 mg
BID REID Administration
Home Medications
�Medication �Instructions �Recorded
carbidopa 25 mg-levodopa 100 mg 1 tab PO HS Parkinson disease #0 07/15/23
tablet (Sinemet) tabs
carvedilol 3.125 mg tablet 3.125 mg PO BID CAD #60 tabs 07/15/23
denosumab 60 mg/mL subcutaneous 60 mg SC [id number] Osteoporosis #0 07/15/23
syringe (Prolia) mL
evolocumab 140 mg/mL subcutaneous 140 mg SC Q2W HLD #0 mL 07/15/23
syringe (Repatha Syringe)
ezetimibe 10 mg tablet (Zetia) 10 mg PO DAILY HLD #0 tabs 07/15/23
mirabegron 50 mg tablet,extended 50 mg PO DAILY overactive bladder 07/15/23
release 24 hr (Myrbetriq) #0 tabs
sertraline 50 mg tablet 50 mg PO DAILY Depression #0 tabs 07/15/23
wpohmhfe-ycor-grve 8 mg-folic 400 1 tab PO DAILY Supplement 10/20/23
mcg-K 50 mcg-lutein 300 mcg tablet
(Centrum Silver Women)
ticagrelor 90 mg tablet (Brilinta) 90 mg PO BID CAD 10/20/23
aspirin 81 mg tablet,delayed 81 mg PO DAILY Blood Clot 12/06/23
release Prevention/Tx
cholecalciferol (vitamin D3) 25 25 mcg PO DAILY Supplement 12/06/23
mcg (1,000 unit) tablet (Vitamin
D3)
cyanocobalamin (vitamin B-12) 500 500 mcg PO DAILY Supplement 12/06/23
mcg tablet
ascorbic acid (vitamin C) 1,000 mg 1,000 mg PO DAILY Supplement 03/04/24
tablet (Vitamin C)
calcitriol 0.25 mcg capsule 0.25 mcg PO MOWEFR Kidney Disease 03/04/24
furosemide 20 mg tablet (Lasix) 20 mg PO Q48H Fluid 03/04/24
Retention/Swelling
insulin lispro protamine-lispro 5 unit SC QPM DIABETES 03/04/24
100 unit/mL (50-50) subcutaneous
pen (Humalog Mix 50-50 KwikPen)
insulin lispro protamine-lispro 6 unit SC DAILY DIABETES 03/04/24
100 unit/mL (50-50) subcutaneous
pen (Humalog Mix 50-50 KwikPen)
NIH Stroke Score
Subsequent NIH Scale
Date of Subsequent NIH Scale: 03/05/24
Time of Subsequent NIH Scale: 09:45
NIH Stroke Score
Level of Consciousness: 0 - Alert
LOC Questions: 0-Answers both correctly
LOC Commands: 0-Performs both correctly
Best Horizontal Gaze: 0-Normal
Visual Izquierdo: 0=Normal, no visual loss
Facial Palsy: 0=Normal, symmetrical
Motor - Right Arm: 0=No drift 10 seconds
Motor - Left Arm: 0=No drift 10 seconds
Motor - Right Le-No drift 5 seconds
Motor - Left Le-No drift 5 seconds
Limb Ataxia: 0-Absent
Sensation: 0-Normal
Best Language: 0-No aphasia
Dysarthria: 0-Normal
Extinction and Inattention: 0-No abnormality
Total Score:: 0
Modified [place] (mRS) Score
Modified [place] Scale (mRS): No symptoms
Score: 0
Allergies
-
Allergies
Allergy/AdvReac Type Severity Reaction Status Date / Time
amitriptyline Allergy Unknown Verified 03/04/24 18:24
amitriptyline HCl Allergy Unknown Verified 12/29/23 17:24
[From Triavil 2-10]
atorvastatin Allergy Unknown Verified 12/29/23 17:24
calcitonin [Calcitonin] Allergy Unknown Verified 12/29/23 17:24
cefaclor [From Ceclor] Allergy Unknown Verified 12/29/23 17:24
cephalexin Allergy Unknown Verified 03/04/24 18:24
Cephalosporins Allergy Unknown Verified 03/04/24 18:24
ciprofloxacin Allergy Unknown Verified 03/04/24 18:24
desipramine Allergy Unknown Verified 12/29/23 17:24
desipramine HCl Allergy Unknown Verified 12/29/23 17:24
[From Norpramin]
hydrochlorothiazide Allergy Unknown Verified 03/04/24 18:24
iodine Allergy Unknown Verified 12/29/23 17:24
latex Allergy Rash Verified 12/29/23 17:24
metolazone Allergy Unknown Verified 03/04/24 18:24
metronidazole Allergy Unknown Verified 03/04/24 18:24
nortriptyline Allergy Unknown Verified 03/04/24 18:24
penicillin G Allergy Unknown Verified 03/04/24 18:24
Penicillins Allergy Unknown Verified 03/04/24 18:24
perphenazine Allergy Unknown Verified 12/29/23 17:24
[From Triavil 2-10]
potassium iodide Allergy TOLERATED Verified 03/04/24 18:24
KCL 06/2023
prochlorperazine Allergy rigid Verified 12/29/23 17:24
[Prochlorperazine]
prochlorperazine edisylate Allergy rigid Verified 12/29/23 17:24
[From Compazine]
prochlorperazine maleate Allergy rigid Verified 12/29/23 17:24
[From Compazine]
Quinolones Allergy Unknown Verified 03/04/24 18:24
sodium iodide Allergy Unknown Verified 12/29/23 17:24
Wnosxme-QSS-AjY Reductase Allergy restless Verified 12/29/23 17:24
Inhibitor legs and
[Yqczhqj-Ftp-Eta Reductase leg cramps
Inhibitor]
Sulfa (Sulfonamide Allergy Unknown Verified 03/04/24 18:24
Antibiotics)
sulfamethoxazole Allergy Unknown Verified 03/04/24 18:24
Tetracyclines Allergy Unknown Verified 03/04/24 18:24
trimethoprim Allergy Unknown Verified 03/04/24 18:24
eye drop preservatives Allergy Swelling Uncoded 12/29/23 17:24
miacalcin nasal spray Allergy Unknown Uncoded 12/29/23 17:24

Documented by User: Jay Bowers MD 03/05/24 14:19
NIH Stroke Score
NIH Stroke Score
Total Score:: 0
Modified [place] (mRS) Score
Score: 0
[2024-03-05 11:07] VITALS: BP 145/66
[2024-03-05 11:08] VITALS: BP 137/63; BP 145/66; PULSE 77; PULSE 86
[2024-03-05 12:07] LABS: Glucose - Point of Care 258 mg/dl (70-99)
[2024-03-05] MEDS: NOVOLOG FLEXPEN-LOW RESISTANCE 3 UNITS SC ×2 (13:13→18:17)
[2024-03-05 13:16] VITALS: BMI 18.8
[2024-03-05 16:35] LABS: Glucose - Point of Care 280 mg/dl (70-99)
--- NOTE | 2024-03-05 17:11 | CM ---
Reviewed chart, met with patent to obtain information for assessment. Patient lives at [facility], by herself. Her spouse is in [facility] on hospice. She is independent with her ADLs, personal care, dressing, bathing and uses a rollator.
She uses the dining [employer] for her meals.
She has never had VN services.
She has not been to a SNF.
Patient has a prescription plan and uses, [facility] for all medications.
Patient's PCP is, Lamar Lopez.
Patient stated that she is anxious to return home to be with her spouse.
Plan: Case management will continue to follow and assist with discharge planning. Patient would like to return home when cleared and should be no needs.
--- NOTE | 2024-03-05 17:30 | EEG.RPT ---
Electroencephalogram Report
Recording
Date of EE03/05/24
Type of EEG: Routine
Length of EEG recordin mins
Done with Video Recording: Yes
Patient Status: Inpatient
Recording Conditions: Awake and Asleep
Hyperventilation Performed: No
Photic Stimulation Performed: Yes
Report
METHODS
A 21 channel digitized electroencephalogram was performed at [facility]. The 10/20 international system of electrode placement was used. In addition to EEG, the patient was monitored for EKG. The duration of the recording was 65 minutes.
BACKGROUND
During the awake state, with the eyes closed, the background consisted of a normal amplitude, 11-12 Hertz posterior reactive rhythm that attenuated appropriately with eye opening.
SLEEP
Stage II sleep was obtained and consisted of symmetrical sleep spindles and vertex sharp waves.
PHOTIC STIMULATION
Photic stimulation using a step-ma increase in photic frequency varying from 1-31 Hertz resulted in no driving responses but no appearance of abnormal activity.
ABNORMAL EEG ACTIVITY
None
CLINICAL EVENTS
None
INTERPRETATION AND CLINICAL CORRELATION
This EEG is normal during the awake and sleep states as well as during the activation procedure of photic stimulation. No seizures were noted during the recording. A normal EEG, in itself, does not rule out a diagnosis of epilepsy. If clinical
suspicion for seizure persists, a sleep-deprived and/or prolonged recording may be warranted.
[2024-03-05 20:01] VITALS: BP 125/62
[2024-03-05] MEDS: SINEMET 25-100 1 TABLET PO (20:13)
[2024-03-05 21:22] LABS: Glucose - Point of Care 219 mg/dl (70-99)
[2024-03-05 23:24] VITALS: BP 144/75
[2024-03-06 04:00] VITALS: BMI 18.8
[2024-03-06 06:00] VITALS: BMI 18.1
[2024-03-06 07:00] VITALS: BP 121/65
[2024-03-06 08:16] LABS: % Basophils 0.3 % (0-2); % Eosinophils 7.5 % (0-6); % Immature Granulocytes 0.1 % (0-0.5); % Lymphocytes 20.4 % (20.5-51.1); % Monocytes 7.6 % (1.7-9.3); % Neutrophils 64.1 % (42.2-75.2); Absolute Eosinophils 0.5 10^3/uL (0-0.7); Absolute Lymphocytes 1.4 10^3/uL (1.2-3.4); Absolute Monocytes 0.5 10^3/uL (0.1-0.6); Absolute Neutrophils 4.3 10^3/uL (1.4-6.5); Hematocrit 34.2 % (37.0-47.0); Hemoglobin 11.9 g/dL (12.0-16.0); Mean Corp Hgb Conc. 34.8 g/dL (33.0-37.0); Mean Corpuscular Hgb 32.5 pg (27.0-31.0); Mean Corpuscular Volume 93.4 fL (81.0-99.0); Mean Platelet Volume 10.3 fL (7.4-10.4); Nucleated Red Blood Cells % 0 %; Platelet Count 199 10^3/uL (130-400); Red Blood Cell Count 3.66 10^6/uL (4.20-5.40); Red Cell Dist. Width 12.8 % (11.5-14.5); White Blood Cell Count 6.7 10^3/uL (4.8-10.8)
[2024-03-06 08:39] LABS: Glucose - Point of Care 244 mg/dl (70-99)
[2024-03-06 08:43] LABS: ALT (SGPT) < 10 U/L (0-35); AST (SGOT) 26 U/L (14-36); Albumin 3.9 g/dl (3.5-5.0); Alkaline Phosphatase 56 U/L (38-126); Blood Urea Nitrogen 80 mg/dl (7-17); Calcium 10.6 mg/dl (8.4-10.2); Carbon Dioxide 25 mmol/L (22-30); Chloride 95 mmol/L (98-107); Estimated Creatinine Clearance 8 ml/min; Glucose 208 mg/dl (70-99); Potassium 4.1 mmol/L (3.5-5.1); Sodium 136 mmol/L (135-145); Total Bilirubin 0.6 mg/dl (0.2-1.3); eGFR 12.43
[2024-03-06] MEDS: ZETIA 10 MG PO (08:44)
[2024-03-06] MEDS: BRILINTA 90 MG PO (08:44)
[2024-03-06] MEDS: MYRBETRIQ EXTENDED RELEASE 50 MG PO (08:44)
[2024-03-06] MEDS: COREG 3.125 MG PO (08:44)
[2024-03-06] MEDS: VITAMIN C 1000 MG PO (08:44)
[2024-03-06] MEDS: VITAMIN B-12 500 MCG PO (08:45)
[2024-03-06] MEDS: VITAMIN D3 (cholecalciferol) 25 MCG PO (08:45)
[2024-03-06] MEDS: ASPIR LOW (ENTERIC COATED) 81 MG PO (08:45)
[2024-03-06] MEDS: ZOLOFT 50 MG PO (08:45)
[2024-03-06] MEDS: HEPARIN 5000 UNITS SC (08:48)
[2024-03-06] MEDS: NOVOLOG FLEXPEN-LOW RESISTANCE 2 UNITS SC (08:48)
--- NOTE | 2024-03-06 09:55 | W.PN.NEURO.1 ---
Today's Communication / Plan
-
Will need loop recorder if cardiology is in agreement
Will need outpatient sleep testing to determine if this is related to symptomatology
Continue usual antiplatelet agents
Continue current carbidopa/levodopa dosing although patient is not appear to be parkinsonian at this time
Neuro Assessment/Plan
Assessment
Abrupt onset of recurrent syncope, present across approximately 6 years with additional symptomatology including visual changes intermittently which are increasing and a suggestion of orthostatic hypotension. The patient additionally, has a
suggested history of stroke, and parkinsonism.
MRI of the brain demonstrated old stroke
Orthostatic blood pressures with 3-minute increments between each body position change have been rarely performed unremarkable so far
Results of greater than 1 hour EEG are unremarkable
Plan
Will need loop recorder if cardiology is in agreement
Will need outpatient sleep testing to determine if this is related to symptomatology
Continue usual antiplatelet agents
Continue current carbidopa/levodopa dosing although patient is not appear to be parkinsonian at this time
Will follow as outpatient.
Subjective/Objective
Subjective Data
Date of Service: March 06, 2024
No new events.
Objective Data
Vital Signs
Temp Pulse Resp BP Pulse Ox
36.5 C 79 16 121/65 97
03/06/24 07:00 03/06/24 07:00 03/06/24 07:00 03/06/24 07:00 03/06/24 07:00
Lab Results
03/06/24 07:03
03/06/24 07:03
PT 14.0 Sec (11.4-14.6) 03/05/24 06:57
INR 1.08 03/05/24 06:57
APTT 33.0 Sec (23.4-35.0) 03/05/24 06:57
Sodium 136 mmol/L (135-145) 03/06/24 07:03
Potassium 4.1 mmol/L (3.5-5.1) 03/06/24 07:03
BUN 80 mg/dl (7-17) H 03/06/24 07:03
Glucose 208 mg/dl (70-99) H 03/06/24 07:03
Calcium 10.6 mg/dl (8.4-10.2) H 03/06/24 07:03
Zxj-U-Itlfwpssrbj Pept 7400 pg/ml 03/04/24 16:15
Vitamin B12 > 1000 pg/ml (239-931) H 03/05/24 06:57
Patient Allergies
amitriptyline Allergy (Verified 03/04/24 18:24)
Unknown
amitriptyline HCl [From Triavil 2-10] Allergy (Verified 12/29/23 17:24)
Unknown
atorvastatin Allergy (Verified 12/29/23 17:24)
Unknown
calcitonin [Calcitonin] Allergy (Verified 12/29/23 17:24)
Unknown
cefaclor [From Ceclor] Allergy (Verified 12/29/23 17:24)
Unknown
cephalexin Allergy (Verified 03/04/24 18:24)
Unknown
Cephalosporins Allergy (Verified 03/04/24 18:24)
Unknown
ciprofloxacin Allergy (Verified 03/04/24 18:24)
Unknown
desipramine Allergy (Verified 12/29/23 17:24)
Unknown
desipramine HCl [From Norpramin] Allergy (Verified 12/29/23 17:24)
Unknown
hydrochlorothiazide Allergy (Verified 03/04/24 18:24)
Unknown
iodine Allergy (Verified 12/29/23 17:24)
Unknown
latex Allergy (Verified 12/29/23 17:24)
Rash
metolazone Allergy (Verified 03/04/24 18:24)
Unknown
metronidazole Allergy (Verified 03/04/24 18:24)
Unknown
nortriptyline Allergy (Verified 03/04/24 18:24)
Unknown
penicillin G Allergy (Verified 03/04/24 18:24)
Unknown
Penicillins Allergy (Verified 03/04/24 18:24)
Unknown
perphenazine [From Triavil 2-10] Allergy (Verified 12/29/23 17:24)
Unknown
potassium iodide Allergy (Verified 03/04/24 18:24)
TOLERATED KCL 06/2023
prochlorperazine [Prochlorperazine] Allergy (Verified 12/29/23 17:24)
rigid
prochlorperazine edisylate [From Compazine] Allergy (Verified 12/29/23 17:24)
rigid
prochlorperazine maleate [From Compazine] Allergy (Verified 12/29/23 17:24)
rigid
Quinolones Allergy (Verified 03/04/24 18:24)
Unknown
sodium iodide Allergy (Verified 12/29/23 17:24)
Unknown
Lmnniec-NMJ-QxU Reductase Inhibitor [Tmvffwj-Uho-Qpj Reductase Inhibitor] Allergy (Verified 12/29/23 17:24)
restless legs and leg cramps
Sulfa (Sulfonamide Antibiotics) Allergy (Verified 03/04/24 18:24)
Unknown
sulfamethoxazole Allergy (Verified 03/04/24 18:24)
Unknown
Tetracyclines Allergy (Verified 03/04/24 18:24)
Unknown
trimethoprim Allergy (Verified 03/04/24 18:24)
Unknown
eye drop preservatives Allergy (Uncoded 12/29/23 17:24)
Swelling
miacalcin nasal spray Allergy (Uncoded 12/29/23 17:24)
Unknown
Review of Systems
-
History Source: Patient
All other systems: Reviewed and negative
Physical Exam
-
General: No Apparent Distress and Appears Stated Age
Eyes: Round OU, Opp Conjunctivae and No Ptosis
HEENT: Anicteric and Moist Mucous Membranes
Neck: Full Range of Motion
Respiratory: No Dyspnea
Cardiac: No JVD
GI: Non-distended
Skin: Unremarkable
Extremities: No Clubbing, No Cyanosis and No Edema
Psych: Negative Intact Judgement/Insight
Extended Neurological Exam
Mood & Affect: Negative Affect Unremarkable (Aloof)
Attention Span & Concentration: Awake, Alert and Interactive
Memory: Unremarkable
Involuntary Movement: None
Speech: Quality Unremarkable and Quantity Unremarkable
Cranial Nerve II: Left Eye: Pupillary Size Unremarkable and Visual Izquierdo Grossly Intact
Cranial Nerve II: Right Eye: Pupillary Size Unremarkable and Visual Izquierdo Grossly Intact
Cranial Nerves III, IV, : Extraocular Movement: Grossly Intact
Cranial Nerve VII: Facial Symmetry: Normal Facial Symmetry
Cranial Nerve VIII: Hearing: Unremarkable Hearing to Normal Conversational Volume
Data Reviewed
-
MRI Head: Report Reviewed and Image Reviewed
EEG: Report Reviewed
Labs: Report Reviewed
Reviewed with: Physician and Patient
Old Records: Summarized
[2024-03-06 10:30] VITALS: BP 114/62; BP 121/62; BP 131/63; PULSE 80; PULSE 81; PULSE 86
[2024-03-06 11:00] VITALS: BP 114/62
--- NOTE | 2024-03-06 11:06 | W.PN.UPDATE ---
Update Note
Progress Note Update
BP supine 145/66 and standing 137/63, so not markedly orthostatic. Syncope happened while seated most recently. Unremarkable EEG. Carotid u/s B/L less than 50%. MRI brain without infarct. Neurology note reviewed. Plan is for an outpatient Linq to be
placed on 03/10/24. Cont Coreg 3.125 mg BID. No other changes from cardiology standpoint and will see patient again when she presents for her Linq on Friday.
--- NOTE | 2024-03-06 11:23 | W.PN.HOSP.TC ---
Today's Communication/Plan
-
d/c home
Assessment / Plan
Assessment / Plan
1. Syncope
-Orthostatic vitals has been negative
-Carotid ultrasound did not show any critical narrowing
-EEG rule out any seizure activity
-MRI brain did not show any new CVA
-Cardiology planning for patient to have a Linq placed later next week
-Patient to continue home dose of Coreg
2. Severe aortic stenosis
-Cardiology evaluated and no indication for further workup
Chronic diastolic congestive heart failure
Essential hypertension
Hyperlipidemia
Overactive bladder
Coronary disease
Questionable Parkinson's disease
CAD
Anxiety/depression
IDDM
Extensive allergy list to prescription medication/antibiotics
CODE STATUS: DNR/DNI
DVT prophylaxis subcu heparin 5000 every 8 hours
More than 30 minutes spent in discharge including
Final examination of the patient
Summarizing hospital stay
Instructions for continuing care to all relevant caregivers
Preparation of discharge records, prescriptions, and referral forms
Total time spent (in minutes): 38 mins
Anticipated Discharge: Today
Subjective/Interval History
-
Date of Service: March 06, 2024
no complains overnight
no further episode of dizziness/syncope
Objective Data
-
Labs:
Laboratory Results
03/06/24
07:03
WBC 6.7
Hgb 11.9 L
Hct 34.2 L
Plt Count 199
Sodium 136
Potassium 4.1
Chloride 95 L
Carbon Dioxide 25
BUN 80 H
Creatinine 3.5 H
Glucose 208 H
Calcium 10.6 H
Total Bilirubin 0.6
AST 26
ALT < 10
Alkaline Phosphatase 56
Vital Signs:
Vital Signs
Temp Pulse Resp BP Pulse Ox
97.7 F 79 16 121/65 97
03/06/24 07:00 03/06/24 07:00 03/06/24 07:00 03/06/24 07:00 03/06/24 07:00
I&O
03/05/24 03/06/24 03/07/24
06:59 06:59 06:59
Intake Total 1140 / 1140 360 / 360
Output Total 50 / 50
Balance 1090 / 1090 360 / 360
Review of Systems
-
Respiratory: Reports No Symptoms
Cardiac: Reports No Symptoms
Abdomen/GI: Reports No Symptoms
Physical Exam
-
General: No Apparent Distress and Comfortable
HEENT: Negative Oxygen
Respiratory: Clear to Auscultation
Cardiac: Regular Rhythm and S1/S2; Negative Murmur or Rub
GI: Soft, Nontender and Nondistended
Musculoskeletal: No Edema
Neuro: Awake, Alert, Oriented, No Motor Deficits and Nonfocal/Grossly Intact
Psych: Calm
[2024-03-06 13:28] LABS: Glucose - Point of Care 277 mg/dl (70-99)
--- NOTE | 2024-03-06 15:58 | W.DCSUMMARY ---
Discharge Summary
Discharge Data
Date of Admission: 03/04/24
Date of Discharge: 03/06/24
-
Pending Results: No
Hospital Course
Discharging Physician : Dr Elfego Ruiz
Disposition : Home
Primary care physician : Dr Lamar Lopez
Principal Discharge diagnosis :
Syncope
Chronic Discharge diagnosis :
Moderate aortic stenosis
Chronic diastolic congestive heart failure
Essential hypertension
Hyperlipidemia
Overactive bladder
Coronary artery disease
History of Parkinson disease
Anxiety/depression
Insulin-dependent diabetes mellitus
Extensive medication allergy
Hospital Course :
Patient is a 84-year-old female with mentioned past medical history came to ER after having 2 episodes of syncope. Patient had similar episodes in December earlier this year as well. Patient apparently was sitting in chair and slumped over, no
prodromal symptoms. Episodes were witnessed in brief, no reported head injury. Patient was sent to ER for further evaluation. Orthostatic vitals were checked and were negative. Cardiology and neurology was involved in care. Patient had an MRI
brain and EEG on was negative for any stroke or seizure activity. Patient was monitored on telemetry without any pathological cardiac arrhythmia. Carotid Doppler was negative for any significant stenosis. Cardiology recommended for patient to
undergo an elective Linq placement in the office. Patient currently on Coreg 3.125 mg twice daily, cardiology recommended to continue this. Patient to follow-up with cardiology in office for Linq device placement.
Important imaging findings :
None
Procedure findings :
None
Discharge Plan
-
Patient Disposition: Home (Routine Discharge)
Discharge Diagnosis/Procedures: Syncope
Condition: Good
Diet: Diabetic, Carb Controlled
Activity: As tolerated
Driving Restrictions: As prior to admission
Bathing Restrictions: None
Activity Restrictions/Additional Instructions:
You have been arranged for an implantable loop recorder (retirement heart monitor) 03/10/2024. If they have not already, someone from the cardiology office will reach out with instructions.
Hospital Course : 84-year-old female presents to [facility] emergency department for multiple episodes of syncope without prodrome. These episodes were witnessed as she was sitting in a chair and slumped over. She did not hit her head or fall onto the
ground. Patient reports she was visiting her who is on hospice at a nursing facility, she lives independently is able to ambulate on her own with a rollator. In the [facility] the patient had orthostatic blood pressure checked and
according to the patient her blood pressures dropped to 60/30 when orthostatics were checked. Patient endorses slight dizziness. She was admitted to telemetry for further monitoring and workup. During her stay cardiology was consulted to see the
patient. Cardiology recommended that the patient get a implantable loop recorder placed as an outpatient. Patient will be referred to cardiology after discharge for discussion of implantable loop recorder. Neurology was consulted to see the
patient. Neurology ordered MRI of the brain which was unremarkable. They also ordered a greater than 1 hour EEG and recommended continuing usual antiplatelet agents. EEG was unremarkable and neurology signed off and recommended follow-up
outpatient. Patient's orthostatic blood pressures within normal limits. Patient will follow-up with cardiology as an outpatient for implantable loop device and as well as neurology as outpatient for further management and workup of her syncope.
Referrals were placed and she was discharged home.
Important imaging findings :
03/05/2024 brain MRI without contrast, impressions:
1. No MRI evidence for acute infarct.
2. 1.2 cm chronic ischemic infarct in the anterior right basal ganglia with associated encephalomalacia.
3. Mild to moderate white matter leukoaraiosis in the frontal and parietal lobes.
4. Moderate diffuse distention of the ventricular system. Diagnostic possibilities are (1) normal pressure communicating hydrocephalus or (2) ex vacuo dilatation secondary to mild diffuse cerebral and cerebellar volume loss.
03/05/2024 vascular ultrasound, impressions:
Procedure findings :
03/05/2024 EEG, impressions:
Instructions: *[facility] Heart Failure Instructions
Referrals:
Jay Bowers MD [Active] - in one to two weeks
Lamar Lopez MD [Family Provider] - in less than 1 week
Trinh Espinoza MD [Active] - 03/10/24 (Dr. Tsang's office has you scheduled for an implanted heart monitor procedure on 03/10/24. The assistant laboratory director area will call you Friday evening with an arrival time.)
Bobbi Neal PA-C [Specified Professional Personl] - 04/07/24 1:20 pm (You have a follow up visit with Dr. Tsang's Bobbi ESCAMILLA, at the [facility] office. Please call with questions. )
Prescriptions:
Continued
carvedilol 3.125 mg Tablet
3.125 mg PO BID Qty: 60 2RF
carbidopa-levodopa [Sinemet] 25-100 mg Tablet
1 tab PO HS Qty: 0 0RF
sertraline 50 mg Tablet
50 mg PO DAILY Qty: 0 0RF
ezetimibe [Zetia] 10 mg Tablet
10 mg PO DAILY Qty: 0 0RF
Prolia 60 mg/mL Syringe
60 mg SC O2ANBRFL Qty: 0 0RF
mirabegron [Myrbetriq] 50 MG tablet extended release 24 hr
50 mg PO DAILY Qty: 0 0RF
Repatha Syringe 140 mg/mL Syringe
140 mg SC Q2W Qty: 0 0RF
Centrum Silver Women 8 mg iron-400 mcg-50 mcg Tablet
1 tab PO DAILY
Brilinta 90 mg tablet
90 mg PO BID
cyanocobalamin (vitamin B-12) 500 mcg tablet
500 mcg PO DAILY
cholecalciferol (vitamin D3) [Vitamin D3] 25 mcg (1,000 unit) Tablet
25 mcg PO DAILY
aspirin 81 mg tablet,delayed release (DR/EC)
81 mg PO DAILY
ascorbic acid (vitamin C) [Vitamin C] 1,000 mg Tablet
1,000 mg PO DAILY
calcitriol 0.25 mcg Capsule
0.25 mcg PO MOWEFR
Humalog Mix 50-50 KwikPen 100 unit/mL (50-50) Insulin Pen
6 unit SC DAILY
Humalog Mix 50-50 KwikPen 100 unit/mL (50-50) Insulin Pen
5 unit SC QPM
furosemide [Lasix] 20 mg tablet
20 mg PO Q48H
Discharge Orders:
Discharge Patient (As Directed); Ordered 03/06/24
Ordered By: Elfego Ruiz
Discharge Date and Time
Discharge Date/Time: 03/06/24 14:21
Print Language: GREEK
--- NOTE | 2024-03-06 16:27 | CM ---
MD entered order for discharge.
Spoke with pt she said she was ready for discahrge back to [facility] independent living.
Offered V she declined need.
Spoke with Fito and Carmine Pedersen [phone]. All agreed with dc.
Nuvia said she will drive her home.
PLAN Home with needs
== END 2024-03-06 14:21 | disposition home or self-care (01) | DRG 312 ==
LOC: 3 WEST ACU 18:21
PROVIDERS: ADMITTING PHYSICIAN Hospitalist; ATTENDING PHYSICIAN Hospitalist; EMERGENCY PHYSICIAN Emergency Medicine; FAMILY PHYSICIAN Internal Medicine Geriatric Medicine; OTHER PHYSICIAN Internal Medicine Cardiovascular Disease; OTHER PHYSICIAN Psychiatry & Neurology Neurology
DX: R55 Syncope and collapse (principal); N18.5 Chronic kidney disease, stage 5; I13.2 Hypertensive heart and chronic kidney disease with heart failure and with stage 5 chronic kidney disease, or end stage renal disease; I50.32 Chronic diastolic (congestive) heart failure; I35.2 Nonrheumatic aortic (valve) stenosis with insufficiency; E11.22 Type 2 diabetes mellitus with diabetic chronic kidney disease; F41.9 Anxiety disorder, unspecified; F32.A Depression, unspecified; E78.00 Pure hypercholesterolemia, unspecified; I25.10 Atherosclerotic heart disease of native coronary artery without angina pectoris; G20.A1 Parkinson's disease without dyskinesia, without mention of fluctuations; Z66 Do not resuscitate
CPT/HCPCS: 70551; 80053; 82140; 82607; 82962; 83880; 84443; 84484; 85025; 85610; 85730; 87070; 93005; 93880; 95813; 97162; 99285

== ENCOUNTER → 2024-03-11 13:08 | Day surgery (SDC) | payer OTHER, SELFPAY ==
[2024-03-11 14:27] LABS: Glucose - Point of Care 217 mg/dl (70-99)
--- NOTE | 2024-03-11 14:58 | ITS.CL.IMPLP ---
Residential Field Manager - Implant Loop
Implant Loop
Procedure Report:
ILR
Date of Procedure: March 11, 2024
Patient : 1940
Procedure: Insertable Loop Recorder Implant
Indication: Unexplained syncope
�
Implant: Reveal Linq2: [employer]; Model# [id number]; Serial# [id number]
�
Technique: The patient was prepped and draped in the usual fashion.��Local anesthetic was applied to the left��prepectoral subcutaneous tissue. A subcutaneous pocket was created with blunt dissection. Hemostasis was excellent. The device was
placed in the pocket.. The skin was closed with steri-strips. The estimated blood��loss was minimal. There were no complications.
�
Final Programming: FVT 231 30/40 beats
����������������������������������VT 176 16 beats
����������������������������������Asystole 3 sec
����������������������������������Sidney 30 bpm for 4 beats
����������������������������������AF On AF only.
�
Conclusion: Uncomplicated insertable loop implant.
�
Recommendation: Routine Reveal care.
�
cc: Dr. Ángel Grover
== END | disposition home or self-care (01) ==
LOC: CATH 13:08
PROVIDERS: ATTENDING PHYSICIAN Internal Medicine Cardiovascular Disease; FAMILY PHYSICIAN Internal Medicine Geriatric Medicine; OTHER PHYSICIAN Internal Medicine Cardiovascular Disease
DX: Z09 Encounter for follow-up examination after completed treatment for conditions other than malignant neoplasm (principal); R55 Syncope and collapse; I10 Essential (primary) hypertension; I35.0 Nonrheumatic aortic (valve) stenosis; E78.5 Hyperlipidemia, unspecified; I25.10 Atherosclerotic heart disease of native coronary artery without angina pectoris; G20.A1 Parkinson's disease without dyskinesia, without mention of fluctuations; F41.9 Anxiety disorder, unspecified; F32.A Depression, unspecified; E11.9 Type 2 diabetes mellitus without complications; Z79.899 Other long term (current) drug therapy; Z79.4 Long term (current) use of insulin; Z79.02 Long term (current) use of antithrombotics/antiplatelets
CPT/HCPCS: 33285; 82962; C1764

== ENCOUNTER → 2024-06-23 13:21 | Outpatient (REF) | payer OTHER, SELFPAY | LOC: DHVS 13:21 | PROVIDERS: ATTENDING PHYSICIAN Surgery Vascular Surgery; FAMILY PHYSICIAN Internal Medicine Geriatric Medicine | DX: I73.9 Peripheral vascular disease, unspecified (principal) | CPT/HCPCS: 93922; 93925 ==

== ENCOUNTER → 2024-10-04 11:16 | Outpatient (REF) | payer OTHER, MEDICARE, SELFPAY | LOC: HWRAD 11:16 | PROVIDERS: ATTENDING PHYSICIAN Specialist; FAMILY PHYSICIAN Internal Medicine Geriatric Medicine | DX: I77.0 Arteriovenous fistula, acquired (principal) | CPT/HCPCS: 93990 ==

== ENCOUNTER 2024-10-13 07:54 | Day surgery (SDC) | payer OTHER, SELFPAY ==
--- NOTE | 2024-10-08 14:23 | PTCARENOTE ---
abn ecg, anterior infarct, noted on previous ECG from 07/07/2023
[2024-10-13] VITALS (10 sets, daily range): BP systolic 121–176; BP diastolic 59–110; BMI 18.4
[2024-10-13 08:55] LABS: Hematocrit 32.3 % (37.0-47.0); Hemoglobin 10.8 g/dL (12.0-16.0); Mean Corp Hgb Conc. 33.4 g/dL (33.0-37.0); Mean Corpuscular Hgb 31.4 pg (27.0-31.0); Mean Corpuscular Volume 93.9 fL (81.0-99.0); Mean Platelet Volume 10.4 fL (7.4-10.4); Platelet Count 219 10^3/uL (130-400); Red Blood Cell Count 3.44 10^6/uL (4.20-5.40); White Blood Cell Count 6.5 10^3/uL (4.8-10.8)
[2024-10-13 08:55] LABS: Glucose - Point of Care 346 mg/dl (70-99)
[2024-10-13 09:02] LABS: PT 14.7 Sec (11.4-14.6)
[2024-10-13 09:03] LABS: APTT 30.1 Sec (23.4-35.0)
[2024-10-13] MEDS: NSS 500 IV (09:38)
[2024-10-13 10:01] LABS: Blood Urea Nitrogen 67 mg/dl (7-17); Calcium 7.9 mg/dl (8.4-10.2); Carbon Dioxide 20 mmol/L (22-30); Chloride 107 mmol/L (98-107); Estimated Creatinine Clearance 9 ml/min; Glucose 307 mg/dl (70-99); Potassium 4.7 mmol/L (3.5-5.1); Sodium 138 mmol/L (135-145); eGFR 13.34
[2024-10-13] MEDS: NOVOLOG vial 6 UNITS SC (10:06)
--- NOTE | 2024-10-13 10:10 | W.SUR.PREOP ---
Pre-Operative Surgical Note
-
I have examined this patient prior to the performance of the scheduled procedure.
The patient's condition is unchanged from the time of the current History and
Physical and the patient is able to undergo the scheduled procedure.
Discussed procedure LUE fistulagram. Risks/benefits/alternatives discussed. She understands all and wishes to proceed.
--- NOTE | 2024-10-13 11:43 | W.SUR.POST ---
Surgical Immediate Post Op
Note
Pre Op Diagnosis: ESRD
Post Op Diagnosis: ESRD
Procedure Performed: LUE fistulagram, VBX stent placement x2
Primary Surgeon: Mckay
Anesthesia: local and sedation
Estimated Blood Loss: 5cc
Fluids: See anesthesia flow sheet
Drains/Shunts: none
Specimens/Cultures: none
Doppler/Duplex/Angio (Y/N): Y
Complications: none
Operative Findings: +thrill
[2024-10-13 11:56] LABS: Glucose - Point of Care 261 mg/dl (70-99)
[2024-10-13] MEDS: NOVOLOG vial 2 UNITS SC (12:48)
[2024-10-13 12:56] LABS: Glucose - Point of Care 225 mg/dl (70-99)
--- NOTE | 2024-10-13 16:33 | OR.RPT ---
Operative Report
Operative Report
PROCEDURE DATE: 10/13/2024
Preoperative diagnosis:
1. Chronic kidney disease, approaching need for hemodialysis.
2. Status post left upper extremity brachiobasilic arteriovenous fistula creation with single-stage basilic vein transposition.
3. Poorly maturing left upper extremity AV fistula with suspicion of outflow vein stenosis.
Postoperative diagnosis: Same
Procedure:
1. Duplex assisted cannulation of left upper extremity fistula and a central facing direction.
2. Left upper extremity fistulogram and central venogram.
3. Balloon angioplasty of severely stenotic/occluded long segment outflow vein with 6 mm angioplasty balloon.
4. Placement of enEvolvlver PTX stents x 2 with 8 mm x 6 cm, and 8 mm x 4 cm into separate residual severely stenotic segments of outflow vein.
5. Placement of Goshen VBX 7 mm x 59 mm, and overlapping 7 mm x 39 mm covered stents secondary to vein rupture/pseudoaneurysm.
6. Supervision and interpretation.
Surgeon: Mckay
Nurseryman Assistant: None
Complications: None
Anesthesia: Local, sedation
Fluoroscopy:
10.5 min
9 mGy
2.44 Gy.cm2
Indications for procedure:
As above chronic kidney disease approaching hemodialysis. Left upper extremity brachial basilic fistula that was transposed was easily visible through the skin and palpable. However it was pulsatile and flow volumes were very low. Therefore we
discussed a fistulogram with minimizing usage of contrast. I discussed with her art appraiser. Risk/benefits alternatives were also discussed with the patient. She understood all wished to proceed.
Description of procedure:
Patient was identified, brought to the operating room. Placed on the table in the supine position. After the adequate administration of anesthesia, the patient was prepped and draped in the standard surgical fashion. A standard preoperative
timeout was undertaken and everybody was in agreement with the plan.
The left upper extremity fistula outflow vein was punctured in the distal upper arm with a micropuncture kit in a central facing direction. This was done under direct duplex ultrasound guidance. Next a 5 Lithuanian sheath was advanced over a 0.035
inch wire. Fistulogram demonstrated patent fistula outflow vein just adjacent to the sheath. However, beyond here there was severely stenotic/focally occluded segment of about 6 cm of the vein. Beyond here there was a patent segment that was not
stenotic but the vein appeared occluded just beyond there but in the patent segment there is a large collateral that then reconstituted flow into the deep venous system. It appeared to be a paired deep vein. Beyond the occluded segment of vein
here in the more proximal upper arm/central area, there is reconstitution of the venous flow more distally in the outflow. Central venogram demonstrated no evidence of central venous stenosis. Therefore now using a flopping of hydrophilic wire and
a glide catheter I was able to traverse the first area of severe stenosis/occlusion in the mid upper arm but with some difficulty. I was able to pass my catheter through. Now however I really struggle to get through the occluded/severely stenotic
more central segment (near to the axilla). However with persistence I finally was able to wire through and then gain wire access into the central venous system and then exchanged for a Storq wire after I advanced my catheter. The patient had been
given 3000's of intravenous heparin. Now over the Storq wire I performed balloon angioplasty of the 2 stenotic segments. I could not get my waist of the balloon to completely resolve in either segment. Completion angiogram demonstrated still
residual stenosis at both sites but significantly improved and the intervening segment was significantly improved. But the stenosis especially in the more mid to distal upper arm was severely stenotic still. I therefore then exchanged for a 6
Lithuanian sheath and primarily stented the segments with 8 mm Cook Zilver PTX stents (8 mm x 6 cm more centrally and 8 mm x 4 cm more peripherally. There was still severe residual waist in the stents and therefore I postangioplasty them with 7 mm
angioplasty balloon. The more central 1 I was able to resolve the waist nicely without difficulty. The more peripheral 1 as I inflated the balloon under higher pressures the waist nicely actually resolved. However it sort of popped open. I was
satisfied and happy initially but then when I looked I could see sudden hematoma in that vicinity in the arm. I therefore quickly was able to compress this down and hold manual pressure. I then quickly brought into the field a 7 mm x 59 mm Goshen
VBX covered stent which I then deployed across the area of extravasation. This was within the pre-existing Cook Zilver stent. When I released my hand there was still filling up with a hematoma and therefore I quickly recompressed it. I then
performed angiogram that demonstrated still extravasation there. And therefore then extended the stent with a 7 mm x 39 mm Goshen VBX stent overlapping the prior 1. Now the extravasation was completely resolved on angiography. The stents are widely
patent. The outflow segment of vein was widely patent. At this point I was very satisfied. In addition there was an excellent thrill in the fistula. Therefore the wires and catheters were withdrawn. A 4-0 Monocryl pursestring stitch was placed
around the sheath entry site and this was tied down as the sheath was withdrawn. Manual pressure was also applied to the puncture site. Hemostasis was fully achieved. As noted the patient had an excellent thrill in the fistula upon completion.
The patient tolerated procedure well.
== END 2024-10-13 13:48 | disposition home or self-care (01) ==
LOC: CATH 07:54
PROVIDERS: ATTENDING PHYSICIAN Surgery Vascular Surgery; OTHER PHYSICIAN Internal Medicine Cardiovascular Disease; PRIMARYCARE PHYSICIAN Internal Medicine Geriatric Medicine
DX: T82.858D Stenosis of other vascular prosthetic devices, implants and grafts, subsequent encounter (principal); Y83.2 Surgical operation with anastomosis, bypass or graft as the cause of abnormal reaction of the patient, or of later complication, without mention of misadventure at the time of the procedure; Z91.041 Radiographic dye allergy status; Z88.8 Allergy status to other drugs, medicaments and biological substances; Z88.0 Allergy status to penicillin; Z88.1 Allergy status to other antibiotic agents; Z88.2 Allergy status to sulfonamides; N18.6 End stage renal disease; I12.0 Hypertensive chronic kidney disease with stage 5 chronic kidney disease or end stage renal disease; E11.22 Type 2 diabetes mellitus with diabetic chronic kidney disease; Z99.2 Dependence on renal dialysis; Z79.82 Long term (current) use of aspirin; Z79.899 Other long term (current) drug therapy; Z79.4 Long term (current) use of insulin; Z79.02 Long term (current) use of antithrombotics/antiplatelets
CPT/HCPCS: 36903; 80048; 82962; 85027; 85610; 85730; 86850; 86900; 86901; C1725; C1769; C1874; C1894; Q9967

== ENCOUNTER → 2024-12-03 13:09 | Outpatient (REF) | payer OTHER, SELFPAY | LOC: RAD 13:09 | PROVIDERS: ATTENDING PHYSICIAN Physician Assistant; FAMILY PHYSICIAN Internal Medicine Geriatric Medicine | DX: N18.5 Chronic kidney disease, stage 5 (principal); I77.0 Arteriovenous fistula, acquired | CPT/HCPCS: 93990 ==

== ENCOUNTER 2024-12-07 17:13 | Emergency (ER) | payer OTHER, SELFPAY ==
[2024-12-07 17:18] VITALS: BP 110/57
[2024-12-07 19:44] VITALS: BP 118/66
[2024-12-07 20:49] VITALS: BP 166/55
[2024-12-07 21:22] LABS: % Basophils 0.6 % (0-2); % Eosinophils 5.5 % (0-6); % Immature Granulocytes 0.3 % (0-0.5); % Lymphocytes 17.4 % (20.5-51.1); % Monocytes 5.5 % (1.7-9.3); % Neutrophils 70.7 % (42.2-75.2); Absolute Basophils 0.1 10^3/uL (0-0.2); Absolute Eosinophils 0.5 10^3/uL (0-0.7); Absolute Lymphocytes 1.6 10^3/uL (1.2-3.4); Absolute Monocytes 0.5 10^3/uL (0.1-0.6); Absolute Neutrophils 6.4 10^3/uL (1.4-6.5); Hematocrit 34.9 % (37.0-47.0); Mean Corp Hgb Conc. 34.4 g/dL (33.0-37.0); Mean Corpuscular Hgb 31.7 pg (27.0-31.0); Mean Corpuscular Volume 92.1 fL (81.0-99.0); Mean Platelet Volume 9.8 fL (7.4-10.4); Nucleated Red Blood Cells % 0 %; Platelet Count 233 10^3/uL (130-400); Red Blood Cell Count 3.79 10^6/uL (4.20-5.40)
[2024-12-07 21:25] VITALS: BP 150/50
[2024-12-07 21:36] LABS: ALT (SGPT) < 10 U/L (0-35); AST (SGOT) 25 U/L (14-36); Albumin 4.4 g/dl (3.5-5.0); Alkaline Phosphatase 58 U/L (38-126); Blood Urea Nitrogen 92 mg/dl (7-17); Calcium 9.2 mg/dl (8.4-10.2); Carbon Dioxide 20 mmol/L (22-30); Chloride 106 mmol/L (98-107); Glucose 107 mg/dl (70-99); Potassium 4.5 mmol/L (3.5-5.1); Sodium 141 mmol/L (135-145); Total Bilirubin 0.5 mg/dl (0.2-1.3); Total Protein 6.8 g/dl (6.3-8.2); eGFR 9.45
[2024-12-07 21:45] LABS: Troponin I < 0.012 ng/ml
[2024-12-07 22:00] VITALS: BP 134/47
--- NOTE | 2024-12-07 22:28 | ED.GENMED ---
History of Present Illness
General
Chief Complaint: Dizziness
Time Seen by Provider: 12/07/24 20:47
History of Present Illness
History of Present Illness:
84-year-old female with history of chronic kidney disease, currently being evaluated for hemodialysis, history of RI status post stent x 2, history of CHF, history of syncopal episodes presenting to the emergency department for unprovoked syncopal
episode. Patient reports she was at the eye doctor prior to arrival. She left the eye doctor and next thing that she remembers is being at the side of her car. She was found by a bystander. She notes that this has happened to her in the past
with unknown etiology. She currently denies any acute medical complaints. She denies chest pain, difficulty breathing, fever or recent illness. She denies any abdominal pain or GI symptoms. She notes she has undergone cardiology and neurologic
workup for the syncopal attacks, again unclear etiology. Reports that she appropriately ate and drank today. Denies any present acute medical complaints.
Past History
Past History
ED Past Medical History: CAD and Other (Syncope)
ED Past Surgical History: Other (esophagectomy)
Social History
Tobacco: Non-smoker
Personal:
Living: with family
Employment: Retired
Phy Exam
Physical Exam
Physical Exam:
General: Well-appearing, slightly dry mucous membrane
HEENT: protecting airway, dilated pupil status post ophthalmologic exam
Neck: appears supple
CV: Normal heart rate, regular rhythm
Resp: No accessory muscle use, no increased work of breathing, lungs clear to auscultation bilaterally
Abd: Soft and non-distended, no tenderness to palpation
Extremities: No deformities, no swelling, no erythema
Neuro: alert, no focal neurologic deficit
: deferred
Rectal: deferred
Psych: Normal affect
Skin: Intact
Course
Orders/Labs/Results
Orders:
Orders
12/07/24 17:22
CT Head W/o Iv Contrast Urgent
Comment:
Reason For Exam: Fall
12/07/24 17:42
ECG [Electrocardiogram (*1)] Urgent
Reason for Study: Fatigue / Weakness
12/07/24 17:43
EKG- Treatment ONCE
12/07/24 21:06
Urinalysis Urgent
12/07/24 21:12
Complete Blood Count/With Diff Urgent
Comprehensive Metabolic Panel Urgent
Troponin I Urgent
Abnormal Lab Results
12/07/24
21:12
RBC 3.79 L 10^6/uL
(4.20-5.40)
Hct 34.9 L %
(37.0-47.0)
MCH 31.7 H pg
(27.0-31.0)
Lymphocytes % 17.4 L %
(20.5-51.1)
Carbon Dioxide 20 L mmol/L
(22-30)
BUN 92 H mg/dl
(7-17)
Creatinine 4.4 H* mg/dL
(0.6-1.0)
Glucose 107 H mg/dl
(70-99)
12/07/24 21:12
12/07/24 21:12
Vital Signs
Initial and Last Documented VS:
Initial Vital Signs
Temp Pulse Resp BP Pulse Ox
97.9 F 81 16 110/57 98
12/07/24 17:18 12/07/24 17:18 12/07/24 17:18 12/07/24 17:18 12/07/24 17:18
Last Documented Vital Signs
Temp Pulse Resp BP Pulse Ox
98.2 F 79 15 150/50 100
12/07/24 21:45 12/07/24 21:30 12/07/24 21:30 12/07/24 21:25 12/07/24 19:44
MDM/Problems Addressed
MDM/Problems Addressed:
84-year-old female with history of CKD, CAD status post stenting, CHF, syncopal episodes presenting after unprovoked syncopal episode. Vital signs on arrival are normal.
On exam patient resting comfortably, no acute distress or discomfort. Patient is currently asymptomatic. EKG obtained on arrival, does have some abnormal T wave abnormalities, however relatively unchanged from prior. Patient currently denying any
chest pain. No signs of arrhythmia. Patient symptoms concerning, given unprovoked episode, no prodromal symptoms, less consistent with vasovagal etiology. However on review of EMR, patient has been seen and evaluated for this issue in the past,
unclear etiology. CT head obtained given fall to the ground. CT is unremarkable. Patient without any signs of trauma on her examination. Will plan for screening laboratory analysis and reassessment.
22:30 - labs do show chronic kidney disease, does appear worse from prior baseline, however patient is aware of this. She notes that she gets evaluated every 2 weeks. She denies any issues with urination. Do suspect mild dehydration. However,
patient is declining admission. Patient would prefer to go home. Feel reasonable given that this is not patient's first episode, does follow with cardiology and nephrology. Advise close interval follow-up. Strict return precautions. Acute and
patient. Encouraged oral hydration. Patient verbalized understanding
*EKG
Interpreted by ED Provider?: Yes
EKG Intrepretation Date: 12/07/24
EKG Intrepretation Time: 22:34
Interpretation: abnormal
Comparison EKG: no changes (04/04/24)
Heart Rate: 81
Rate: normal
Rhythm: sinus
[place]: normal axis
Interval: normal interval
QRS Pattern: normal QRS
Ischemia: T-wave inversion
*Critical Care Note
Total Time (30-74mins, 75-104mins- exclusive of procedures): Not Applicable
ED Attending Note
-
Portions of this chart may have been created with voice recognition software.� Occasional wrong word or��sound alike� substitutions may have occurred due to the inherent limitations of voice recognition software.
Discharge Plan
Departure
Prescriptions:
No Action
carvedilol 3.125 mg Tablet
3.125 mg PO BID Qty: 60 2RF
sertraline 50 mg Tablet
50 mg PO DAILY Qty: 0 0RF
ezetimibe [Zetia] 10 mg Tablet
10 mg PO DAILY Qty: 0 0RF
Prolia 60 mg/mL Syringe
60 mg SC [id number] Qty: 0 0RF
mirabegron [Myrbetriq] 50 MG tablet extended release 24 hr
50 mg PO DAILY Qty: 0 0RF
Repatha Syringe 140 mg/mL Syringe
140 mg SC Q2W Qty: 0 0RF
Centrum Silver Women 8 mg iron-400 mcg-50 mcg Tablet
1 tab PO DAILY
Brilinta 90 mg tablet
90 mg PO BID
cyanocobalamin (vitamin B-12) 500 mcg tablet
500 mcg PO DAILY
cholecalciferol (vitamin D3) [Vitamin D3] 25 mcg (1,000 unit) Tablet
25 mcg PO DAILY
aspirin 81 mg tablet,delayed release (DR/EC)
81 mg PO DAILY
ascorbic acid (vitamin C) [Vitamin C] 1,000 mg Tablet
1,000 mg PO DAILY
furosemide [Lasix] 20 mg tablet
20 mg PO DAILY
insulin lispro [Humalog U-100 Insulin] 100 unit/mL Solution
6 unit SC HS
carbidopa-levodopa 25-100 mg Tablet
1 tab PO HS
Humalog U-100 Insulin 100 unit/mL Cartridge
8 unit SC DAILY
Referrals:
Lamar Lopez MD [Family Provider, Internal Medicine]
Interventions
Interventions:
*Risk Screen - Suicide Last Done: 12/07/24 17:18
ED- Neurological Assessment Last Done: 12/07/24 21:15
Discharge Date and Time
Print Language: LAO
[2024-12-07 22:41] VITALS: BP 135/54
== END 2024-12-07 23:41 | disposition home or self-care (01) ==
LOC: EMR 17:13
PROVIDERS: Emergency Medicine; EMERGENCY PHYSICIAN Student in an Organized Health Care Education/Training Program; FAMILY PHYSICIAN Internal Medicine Geriatric Medicine
DX: R42 Dizziness and giddiness (principal); I25.10 Atherosclerotic heart disease of native coronary artery without angina pectoris; N18.9 Chronic kidney disease, unspecified; I50.9 Heart failure, unspecified; Z95.5 Presence of coronary angioplasty implant and graft; I25.2 Old myocardial infarction
CPT/HCPCS: 99284; 70450; 80053; 84484; 85025; 93005

== ENCOUNTER → 2024-12-29 10:58 | Outpatient (REF) | payer OTHER, SELFPAY | LOC: DHVS 10:58 | PROVIDERS: ATTENDING PHYSICIAN Registered Nurse; FAMILY PHYSICIAN Internal Medicine Geriatric Medicine | DX: I73.9 Peripheral vascular disease, unspecified (principal) | CPT/HCPCS: 93922; 93925 ==

== ENCOUNTER → 2025-01-27 10:23 | Outpatient (REF) | payer OTHER, SELFPAY ==
[2025-01-27 12:19] LABS: Albumin 4.0 g/dl (3.5-5.0); Blood Urea Nitrogen 69 mg/dl (7-17); Calcium 8.1 mg/dl (8.4-10.2); Carbon Dioxide 23 mmol/L (22-30); Chloride 101 mmol/L (98-107); Glucose 107 mg/dl (70-99); Potassium 4.2 mmol/L (3.5-5.1); Sodium 133 mmol/L (135-145); eGFR 11.94
== END ==
LOC: REG 10:23
PROVIDERS: ATTENDING PHYSICIAN Specialist; FAMILY PHYSICIAN Internal Medicine Geriatric Medicine
DX: N18.4 Chronic kidney disease, stage 4 (severe) (principal); Q61.3 Polycystic kidney, unspecified; E11.9 Type 2 diabetes mellitus without complications; E83.39 Other disorders of phosphorus metabolism
CPT/HCPCS: 36415; 80069

== ENCOUNTER 2025-01-29 16:48 | Emergency (ER) | payer OTHER, SELFPAY ==
[2025-01-29 16:50] VITALS: BP 142/65
--- NOTE | 2025-01-29 18:21 | ED.GENMED ---
History of Present Illness
General
Chief Complaint: Fall
Source: patient
Exam Limitations: none
Time Seen by Provider: 01/29/25 17:22
Nursing documentation reviewed up to this point in time: agreed with
History of Present Illness
History of Present Illness:
85-year-old female presenting after trip and fall prior to arrival hitting her left green denies any additional injuries does remember the event denies any neck pain or head pain no loss of consciousness on aspirin but no other blood thinners. Has
been able to ambulate
Past History
Past History
ED Past Medical History: CAD and Other (Syncope)
ED Past Surgical History: Other (esophagectomy)
Social History
Tobacco: Non-smoker
Personal:
Living: with family
Employment: Retired
Review of Systems
Review of Systems
Allergies reviewed?: Yes
All Other Systems: ROS reviewed and negative except as documented in HPI and ROS
Phy Exam
Physical Exam
Physical Exam:
GENERAL: Alert , in no apparent distress
EYE: pupils equal and reactive
NECK: Supple, no significant adenopathy.
ENT: o/p clr, mmm.
CARDIAC: Regular rate and rhythm .
LUNGS: Clear breath sounds bilaterally, no acute respiratory distress, no wheezes/rales/rhonchi
ABDOMEN: Soft, without focal tenderness, no r/g, no cvat
NEUROLOGICAL: Alert and oriented, no focal neuro deficits
SKIN: Ecchymosis to the left anterior proximal green roughly 10 cm in total diameter. Good range of motion of the knee ankle and hip warm and dry, skin intact.
MUSCULOSKELETAL: No edema, well perfused.
PSYCH: Normal and appropriate interaction.
Course
Orders/Labs/Results
Orders:
Orders
01/29/25 17:49
CR Leg Tibia/fibula Left 2 Vw Urgent
Comment:
Reason For Exam: fall hit proximal green
Vital Signs
Initial and Last Documented VS:
Initial Vital Signs
Temp Pulse Resp BP Pulse Ox
98 F 79 16 142/65 98
01/29/25 16:50 01/29/25 16:50 01/29/25 16:50 01/29/25 16:50 01/29/25 16:50
Last Documented Vital Signs
Temp Pulse Resp BP Pulse Ox
98 F 79 16 142/65 98
01/29/25 16:50 01/29/25 16:50 01/29/25 16:50 01/29/25 16:50 01/29/25 18:22
MDM/Problems Addressed
MDM/Problems Addressed:
85-year-old female presenting with concerns of left green discomfort from a fall prior to arrival. No head injury or neck injury. X-ray without evidence of acute fracture. Patient able to ambulate. This was wrapped with an Boni bandage otherwise
advised to rest ice compress and elevate. Return precautions given.
*Pulse Oximetry
SaO2: 98
Oxygen Mode of Delivery: Room air
Patient hypoxic: no (98)
*Critical Care Note
Total Time (30-74mins, 75-104mins- exclusive of procedures): Not Applicable
ED Attending Note
-
Portions of this chart may have been created with voice recognition software.� Occasional wrong word or��sound alike� substitutions may have occurred due to the inherent limitations of voice recognition software.
Discharge Plan
Departure
Patient Disposition: Home (Routine Discharge)
Date of Disposition: 01/29/25
Time of Disposition: 18:21
Patient with high blood pressure during this ER visit?: No
Condition: Good
Covid-19: Not Applicable
Discharge Problem:
Contusion of left leg
Instructions: Contusion (DC)
Prescriptions:
No Action
carvedilol 3.125 mg Tablet
3.125 mg PO BID Qty: 60 2RF
sertraline 50 mg Tablet
50 mg PO DAILY Qty: 0 0RF
ezetimibe [Zetia] 10 mg Tablet
10 mg PO DAILY Qty: 0 0RF
Prolia 60 mg/mL Syringe
60 mg SC [id number] Qty: 0 0RF
mirabegron [Myrbetriq] 50 MG tablet extended release 24 hr
50 mg PO DAILY Qty: 0 0RF
Repatha Syringe 140 mg/mL Syringe
140 mg SC Q2W Qty: 0 0RF
Centrum Silver Women 8 mg iron-400 mcg-50 mcg Tablet
1 tab PO DAILY
Brilinta 90 mg tablet
90 mg PO BID
cyanocobalamin (vitamin B-12) 500 mcg tablet
500 mcg PO DAILY
cholecalciferol (vitamin D3) [Vitamin D3] 25 mcg (1,000 unit) Tablet
25 mcg PO DAILY
aspirin 81 mg tablet,delayed release (DR/EC)
81 mg PO DAILY
ascorbic acid (vitamin C) [Vitamin C] 1,000 mg Tablet
1,000 mg PO DAILY
furosemide [Lasix] 20 mg tablet
20 mg PO DAILY
insulin lispro [Humalog U-100 Insulin] 100 unit/mL Solution
6 unit SC HS
carbidopa-levodopa 25-100 mg Tablet
1 tab PO HS
Humalog U-100 Insulin 100 unit/mL Cartridge
8 unit SC DAILY
Referrals:
Lamar Lpoez MD [Family Provider, Internal Medicine]
Activity Restrictions/Additional Instructions:
You came to the emergency department today with concerns of an injury to your left leg. X-ray did not show signs of fracture. This is likely soft tissue injury. Please rest ice compress and elevate. Return for any worsening, new or concerning
symptoms. Otherwise please follow-up closely with your primary care doctor.
Interventions
Interventions:
*Risk Screen - Suicide Last Done: 01/29/25 16:50
*Neglect/Abuse Screening Last Done: 01/29/25 16:50
Discharge Date and Time
Print Language: [id number]
== END 2025-01-29 19:41 | disposition home or self-care (01) ==
LOC: EMR 16:48
PROVIDERS: EMERGENCY PHYSICIAN Emergency Medicine; FAMILY PHYSICIAN Internal Medicine Geriatric Medicine
DX: S80.12XA Contusion of left lower leg, initial encounter (principal); W19.XXXA Unspecified fall, initial encounter; I25.10 Atherosclerotic heart disease of native coronary artery without angina pectoris; Z79.82 Long term (current) use of aspirin
CPT/HCPCS: 99283; 73590

== ENCOUNTER 2025-02-07 14:34 | Emergency (ER) | payer OTHER, SELFPAY ==
[2025-02-07 14:55] VITALS: BP 154/71
--- NOTE | 2025-02-07 16:16 | ED.MUSCINJ ---
HPI-Injury
General
Chief Complaint: Musculo-Skeletal Complaint
Source: patient
Exam Limitations: none
Time Seen by Provider: 02/07/25 16:00
Nursing documentation reviewed up to this point in time: agreed with
History of Present Illness-Injury
Is this injury a work related problem?: No
Is pt an associate of [place],[facility]/[place]?: No
Initial Injury comments:
Patient was seen in ED 1.5 weeks ago after trip and fall. SHe injured her left knee, developed a large hematoma below knee. States she now has bruising pain and swelling to her left ankle. Brought to ED via EMS for eval.
Past History
Past History
ED Past Medical History: CAD and Other (Syncope)
ED Past Surgical History: Other (esophagectomy)
Social History
Tobacco: Non-smoker
Personal:
Living: with family
Employment: Retired
Review of Systems
Review of Systems
Allergies reviewed?: Yes
All Other Systems: ROS reviewed and negative except as documented in HPI and ROS
Constitutional: Reports no symptoms
EENT: Reports no symptoms
Respiratory: Reports no symptoms
Cardiac: Reports no symptoms
ABD/GI: Reports no symptoms
: Reports no symptoms
Musculoskeletal: Reports joint pain (pain to left ankle)
Skin: Reports other (old bruising migrating from knee to ankle. MIld swelling to lower leg, mod swelling to ankle)
Neurological: Reports no symptoms
Psychiatric: Reports no symptoms
Musculoskeletal Injury Exam
Musculoskeletal Injury Exam
Left Ankle:
Pain with Movement?: Moderate
Tender to palpation?: Moderate
Soft tissue swelling?: Moderate
External deformity and angulation?: None
Joint effusion?: None
Contusion?: None
Hematoma-local bleeding into tissue?: None
Strain- Sprain- Tear (Connective tissue injury)?: Moderate
Crepitus with movement?: No
Joint instability?: No
Malalignment/deformity?: No
Range of motion: Full
Distal skin color and temperature: normal-warm & good color
Capillary Refill: normal
Normal distal neurovascular exam?: Yes
Peripheral Pulses: posterior tibial (left): 3+ and dorsalis pedis (left): 3+
Phy Exam
General Physical Exam
General Presentation: well appearing and no apparent distress
General age: appears stated age
General Skin: warm and dry
General Habitus: normal
General Mental: alert
Musculoskeletal Exam
Musculoskeletal Exam: full ROM and neuro vasc intact
Skin Exam
Skin Exam: warm/dry, no rash and other (old bruising noted left green. Swelling and bruising to ankle consisent with fluid from trauma 1.5 weeks ago migrating down leg. No new trauma. no fx on xray. Neurovasc. intact)
Psychiatric Exam
Psychiatric Exam: normal mood/affect
Injury Course
Orders/Labs/Results
Orders:
Orders
02/07/25 14:57
Ankle, left 3 view CR [CR Ankle - Left Min 3 Views ] Urgent
Comment:
Reason For Exam: pain
*Radiology
Radiology exam reviewed: radiology read reviewed
*Pulse Oximetry
SaO2: 99
Oxygen Mode of Delivery: Room air
Patient hypoxic: no
*Critical Care Note
Total Time (30-74mins, 75-104mins- exclusive of procedures): Not Applicable
ED Attending Note
-
Portions of this chart may have been created with voice recognition software.� Occasional wrong word or��sound alike� substitutions may have occurred due to the inherent limitations of voice recognition software.
Discharge Plan
Departure
Patient Disposition: Home (Routine Discharge)
Date of Disposition: 02/07/25
Time of Disposition: 16:14
Patient with high blood pressure during this ER visit?: No
Condition: Good
Covid-19: Not Applicable
Discharge Problem:
Ankle swelling
Instructions: Taking care of bruises, RICE Therapy
Prescriptions:
No Action
carvedilol 3.125 mg Tablet
3.125 mg PO BID Qty: 60 2RF
sertraline 50 mg Tablet
50 mg PO DAILY Qty: 0 0RF
ezetimibe [Zetia] 10 mg Tablet
10 mg PO DAILY Qty: 0 0RF
Prolia 60 mg/mL Syringe
60 mg SC [id number] Qty: 0 0RF
mirabegron [Myrbetriq] 50 MG tablet extended release 24 hr
50 mg PO DAILY Qty: 0 0RF
Repatha Syringe 140 mg/mL Syringe
140 mg SC Q2W Qty: 0 0RF
Centrum Silver Women 8 mg iron-400 mcg-50 mcg Tablet
1 tab PO DAILY
Brilinta 90 mg tablet
90 mg PO BID
cyanocobalamin (vitamin B-12) 500 mcg tablet
500 mcg PO DAILY
cholecalciferol (vitamin D3) [Vitamin D3] 25 mcg (1,000 unit) Tablet
25 mcg PO DAILY
aspirin 81 mg tablet,delayed release (DR/EC)
81 mg PO DAILY
ascorbic acid (vitamin C) [Vitamin C] 1,000 mg Tablet
1,000 mg PO DAILY
furosemide [Lasix] 20 mg tablet
20 mg PO DAILY
insulin lispro [Humalog U-100 Insulin] 100 unit/mL Solution
6 unit SC HS
carbidopa-levodopa 25-100 mg Tablet
1 tab PO HS
Humalog U-100 Insulin 100 unit/mL Cartridge
8 unit SC DAILY
Activity Restrictions/Additional Instructions:
As we discussed, the bruising from your knee is now migrating down your leg to your ankle. THis is normal as the fluid will follow gravity. Elevate your leg when you can, wear compression stockings during the day. Return to the emergency
department immediately for any changes in/worsening of your symptoms.
Interventions
Interventions:
*Risk Screen - Suicide Last Done: 02/07/25 14:56
*Neglect/Abuse Screening Last Done: 02/07/25 14:56
Discharge Date and Time
Print Language: [id number]
== END 2025-02-07 16:45 | disposition home or self-care (01) ==
LOC: EMR 14:34
PROVIDERS: EMERGENCY PHYSICIAN Student in an Organized Health Care Education/Training Program; FAMILY PHYSICIAN Internal Medicine Geriatric Medicine
DX: M25.472 Effusion, left ankle (principal); I25.10 Atherosclerotic heart disease of native coronary artery without angina pectoris; Z79.82 Long term (current) use of aspirin; Z79.4 Long term (current) use of insulin; X58.XXXA Exposure to other specified factors, initial encounter
CPT/HCPCS: 99283; 73610

== ENCOUNTER → 2025-03-25 12:56 | Outpatient (REF) | payer OTHER, SELFPAY | LOC: RAD 12:56 | PROVIDERS: ATTENDING PHYSICIAN Registered Nurse; FAMILY PHYSICIAN Internal Medicine Geriatric Medicine | DX: N18.5 Chronic kidney disease, stage 5 (principal) | CPT/HCPCS: 93990 ==

== ENCOUNTER → 2025-04-18 13:17 | Outpatient (REF) | payer OTHER, SELFPAY | LOC: HWRCS 13:17 | PROVIDERS: ATTENDING PHYSICIAN Internal Medicine Cardiovascular Disease; FAMILY PHYSICIAN Internal Medicine Geriatric Medicine | DX: I50.22 Chronic systolic (congestive) heart failure (principal) | CPT/HCPCS: 93306 ==

== ENCOUNTER 2025-05-12 17:33 | Emergency (ER) | payer OTHER, SELFPAY ==
[2025-05-12 17:39] VITALS: BP 111/51
[2025-05-12 18:14] LABS: Hematocrit 32.2 % (37.0-47.0); Hemoglobin 10.6 g/dL (12.0-16.0); Mean Corp Hgb Conc. 32.9 g/dL (33.0-37.0); Mean Corpuscular Volume 94.2 fL (81.0-99.0); Nucleated Red Blood Cells % 0 %; Platelet Count 235 10^3/uL (130-400); Red Cell Dist. Width 13.2 % (11.5-14.5)
[2025-05-12 18:39] LABS: ALT (SGPT) 11 U/L (0-35); AST (SGOT) 24 U/L (14-36); Albumin 4.3 g/dl (3.5-5.0); Alkaline Phosphatase 44 U/L (38-126); Blood Urea Nitrogen 84 mg/dl (7-17); Calcium 8.9 mg/dl (8.4-10.2); Carbon Dioxide 25 mmol/L (22-30); Chloride 101 mmol/L (98-107); Glucose 120 mg/dl (70-99); Potassium 4.6 mmol/L (3.5-5.1); Sodium 135 mmol/L (135-145); Total Protein 6.8 g/dl (6.3-8.2); eGFR 10.52
[2025-05-12 18:49] LABS: Troponin I 0.012 ng/ml
[2025-05-12 19:07] VITALS: BP 128/55
[2025-05-12 19:08] VITALS: BMI 18.4
--- NOTE | 2025-05-12 19:45 | ED.GENMED ---
History of Present Illness
General
Chief Complaint: Fainting/Passed Out
Source: patient
Exam Limitations: none
Time Seen by Provider: 05/12/25 19:04
History of Present Illness
History of Present Illness:
85yoF with a history of coronary artery disease with stents, CHF, CKD, hypertension, and insulin-dependent diabetes presenting via EMS for evaluation after an unresponsive episode that occurred about 3 hours ago. Patient went out to lunch this
afternoon with her friends. She was feeling fatigued after returning home. She went down to sit in a chair and told her aide that she was going to take a nap. Patient's home health aide noticed that patient looked 'stiff.' Her eyes were closed
and the aide was unable to wake her up with yelling. Patient eventually woke up after shaking. Entire episode lasted about 3 to 5 minutes. There was no seizure-like activity, incontinence, or tongue biting. Patient is currently asymptomatic and
states she is hungry. She denies any chest pain, shortness of breath, dizziness.
Past History
Past History
ED Past Medical History: CAD and Other (Syncope)
ED Past Surgical History: Other (esophagectomy)
Social History
Tobacco: Non-smoker
Personal:
Living: with family
Employment: Retired
Phy Exam
General Physical Exam
General Presentation: well appearing and no apparent distress
General Skin: warm and dry
General Habitus: normal
General Mental: alert
ENT Exam
ENT Exam: normocephalic
Cardiovascular Exam
Cardiovascular Exam: no murmur and systolic murmur
Pulmonary Exam
Pulmonary Exam: lungs clear, no respiratory distress, no rales, no crackles, no rhonchi and no wheezing
Neurological Exam
Neurological Exam: alert
[place] Coma Scale
Eye Opening: Spontaneous
Verbal Response: Oriented
Motor Response: Obeys Commands
GCS Total Score: 15
Skin Exam
Skin Exam: normal color and warm/dry
Psychiatric Exam
Psychiatric Exam: normal mood/affect
Course
Orders/Labs/Results
Orders:
Orders
05/12/25 17:42
Electrocardiogram (*1) Urgent
Reason for Study: Syncope
EKG- Treatment ONCE
05/12/25 18:02
Complete Blood Count/With Diff Urgent
Comprehensive Metabolic Panel Urgent
Troponin I Urgent
05/12/25 20:24
Electrocardiogram (*1) Urgent
Reason for Study: Syncope
Cardiac Monitoring- Treatment ONCE
EKG- Treatment ONCE
05/12/25 20:49
Troponin I Urgent
Abnormal Lab Results
05/12/25
18:02
WBC 11.0 H 10^3/uL
(4.8-10.8)
RBC 3.42 L 10^6/uL
(4.20-5.40)
Hgb 10.6 L g/dL
(12.0-16.0)
Hct 32.2 L %
(37.0-47.0)
MCHC 32.9 L g/dL
(33.0-37.0)
Absolute Neuts (auto) 8.2 H 10^3/uL
(1.4-6.5)
Lymphocytes % 13.7 L %
(20.5-51.1)
BUN 84 H mg/dl
(7-17)
Creatinine 4.0 H mg/dL
(0.6-1.0)
Glucose 120 H mg/dl
(70-99)
05/12/25 18:02
05/12/25 18:02
Vital Signs
Initial and Last Documented VS:
Initial Vital Signs
Temp Pulse Resp BP Pulse Ox
97.6 F 81 18 111/51 96
05/12/25 17:39 05/12/25 17:39 05/12/25 17:39 05/12/25 17:39 05/12/25 17:39
Last Documented Vital Signs
Temp Pulse Resp BP Pulse Ox
98.6 F 81 15 147/62 94
05/12/25 19:07 05/12/25 23:00 05/12/25 23:00 05/12/25 23:00 05/12/25 23:00
MDM/Problems Addressed
Differential Diagnosis Includes:
85yoF here after home health aide was unable to arouse patient. Sitting in a chair and aide had to shake her to wake her up. No complaints at this time other than feeling hungry. Denies CP/SOB/dizziness. She is well-appearing with stable vital
signs. Based on history, it sounds that patient likely fell asleep. Other considerations include syncope versus less likely seizure
Chart reviewed. Patient had echocardiogram last month which showed moderate to severe aortic stenosis which may have worsened slightly from prior echo in 2023. Triage EKG shows ST/T wave changes in V2 and V3 although this appears consistent with
prior EKGs. Troponin within normal limits. Will place on cardiac monitoring and check delta troponin/EKG.
*Pulse Oximetry
SaO2: 95
Oxygen Mode of Delivery: Room air
Patient hypoxic: no
*EKG
Interpreted by ED Provider?: Yes
EKG Intrepretation Date: 05/12/25
Heart Rate: 81
Rate: normal
Rhythm: sinus
[place]: normal axis
Interval: normal interval
QRS Pattern: normal QRS
Ischemia: non-specific ST changes (V2-V3, consistent with prior EKGs)
*Critical Care Note
Total Time (30-74mins, 75-104mins- exclusive of procedures): Not Applicable
Update Note
Update Note:
Repeat EKG unchanged and troponin remains normal. Patient asymptomatic on reassessment and feels comfortable with discharge. She was advised to follow-up with her PCP and cardiology team. ED return precautions reviewed.
ED Attending Note
-
Portions of this chart may have been created with voice recognition software.� Occasional wrong word or��sound alike� substitutions may have occurred due to the inherent limitations of voice recognition software.
Discharge Plan
Departure
Patient Disposition: Home (Routine Discharge)
Date of Disposition: 05/12/25
Time of Disposition: 21:39
Patient with high blood pressure during this ER visit?: No
Discharge Problem:
Episode of unresponsiveness
Instructions: Fatigue (DC)
Prescriptions:
No Action
carvedilol 3.125 mg Tablet
3.125 mg PO BID Qty: 60 2RF
sertraline 50 mg Tablet
50 mg PO DAILY Qty: 0 0RF
ezetimibe [Zetia] 10 mg Tablet
10 mg PO DAILY Qty: 0 0RF
Prolia 60 mg/mL Syringe
60 mg SC [id number] Qty: 0 0RF
mirabegron [Myrbetriq] 50 MG tablet extended release 24 hr
50 mg PO DAILY Qty: 0 0RF
Repatha Syringe 140 mg/mL Syringe
140 mg SC Q2W Qty: 0 0RF
Centrum Silver Women 8 mg iron-400 mcg-50 mcg Tablet
1 tab PO DAILY
Brilinta 90 mg tablet
90 mg PO BID
cyanocobalamin (vitamin B-12) 500 mcg tablet
500 mcg PO DAILY
cholecalciferol (vitamin D3) [Vitamin D3] 25 mcg (1,000 unit) Tablet
25 mcg PO DAILY
aspirin 81 mg tablet,delayed release (DR/EC)
81 mg PO DAILY
ascorbic acid (vitamin C) [Vitamin C] 1,000 mg Tablet
1,000 mg PO DAILY
furosemide [Lasix] 20 mg tablet
20 mg PO DAILY
insulin lispro [Humalog U-100 Insulin] 100 unit/mL Solution
6 unit SC HS
carbidopa-levodopa 25-100 mg Tablet
1 tab PO HS
Humalog U-100 Insulin 100 unit/mL Cartridge
8 unit SC DAILY
Referrals:
Lamar Lopez MD [Family Provider, Internal Medicine]
Activity Restrictions/Additional Instructions:
Please call tomorrow to schedule a follow-up appointment with your family doctor and appellate law clerk. Return to the ER with any new or worsening symptoms.
Interventions
Interventions:
*Risk Screen - Suicide Last Done: 05/12/25 17:39
*General Assessment Last Done: 05/12/25 17:39
*Neglect/Abuse Screening Last Done: 05/12/25 17:39
*ED- Fall Risk Assessment Last Done: 05/12/25 19:08
*ED COVID-19 Vaccine History Last Done: 05/12/25 19:08
*ED Influenza Vaccine History Last Done: 05/12/25 19:08
*Nursing Disposition Last Done: 05/12/25 23:33
ED- Cardiac Assessment Last Done: 05/12/25 19:15
ED- Neurological Assessment Last Done: 05/12/25 19:15
Discharge Date and Time
Discharge Date/Time: 05/12/25 23:36
Print Language: [id number]
[2025-05-12 20:00] VITALS: BP 100/84
[2025-05-12 21:10] VITALS: BP 136/62
[2025-05-12 21:21] LABS: Troponin I 0.017 ng/ml
[2025-05-12 22:00] VITALS: BP 143/62
[2025-05-12 23:00] VITALS: BP 147/62
== END 2025-05-12 23:36 | disposition home or self-care (01) ==
LOC: EMR 17:33
PROVIDERS: Emergency Medicine; Physician Assistant; EMERGENCY PHYSICIAN Emergency Medicine; FAMILY PHYSICIAN Internal Medicine Geriatric Medicine
DX: R55 Syncope and collapse (principal); E11.22 Type 2 diabetes mellitus with diabetic chronic kidney disease; I13.0 Hypertensive heart and chronic kidney disease with heart failure and stage 1 through stage 4 chronic kidney disease, or unspecified chronic kidney disease; N18.9 Chronic kidney disease, unspecified; I50.9 Heart failure, unspecified; I25.10 Atherosclerotic heart disease of native coronary artery without angina pectoris; Z95.5 Presence of coronary angioplasty implant and graft; Z90.49 Acquired absence of other specified parts of digestive tract
CPT/HCPCS: 99284; 80053; 84484; 85025; 93005